=== PATIENT | male | born 1955 | race Caucasian/White ===

== ENCOUNTER → 2021-08-31 14:33 | Outpatient (BNVA) | payer MEDICARE, SELFPAY | PROVIDERS: Visit Provider Podiatrist Foot & Ankle Surgery | DX: M79.672 Pain in left foot (principal) | CPT/HCPCS: 73630 ==

== ENCOUNTER 2021-10-05 11:43 | Outpatient (CLI) | payer MEDICARE, SELFPAY ==
[2021-10-05 13:04] LABS: Blood Urea Nitrogen 14 mg/dL (8-23); Glomerular Filtration Rate 112.5 mL/min (90-130)
== END 2021-10-05 11:44 | disposition home or self-care (01) ==
LOC: RADSHAW 11:47
PROVIDERS: Visit Provider Specialist
DX: D10.5 Benign neoplasm of other parts of oropharynx (principal)
CPT/HCPCS: 82565; 84520

== ENCOUNTER 2021-11-03 08:56 | Outpatient (CLI) | payer MEDICARE, SELFPAY ==
--- NOTE | 2021-11-03 09:08 | CT_ITS ---
WS: [id number] CT NECK TECHNIQUE: Contrast-enhanced CT of the neck with coronal and sagittal reformatted images. CLINICAL INFORMATION: OTHER LESIONS OF ORAL MUCOSA COMPARISON: None. DLP: 600.[address] scans at [facility] use at least one of these dose optimization techniques: automated e xposure control; mA and/or kV adjustment per patient size (includes targeted exams where dose is matc hed to clinical indication); or iterative reconstruction. FINDINGS: Noncalcified slightly spiculated nodules right upper lobe both measuring approximately 13 mm suspicio us for neoplasm or metastatic disease. Additional fibrotic opacity right lung apex measuring 12 mm. R ecommend further evaluation with chest CT. Fibrosis in the lung apices. Partially visualized mild med iastinal lymphadenopathy measuring 10 to 11 mm. Partially visualized intracranial contents are normal. Mastoid air cells are well aerated. Paranasal sinuses are well aerated. Bilateral tonsillar calcifications. Asymmetric soft tissue thickening in the right tongue base of the palatine tonsil. Uvula displaced to the right with soft tissue thickening. Recommend direct visualiz ation. Slight effacement of the right parapharyngeal fat. Submandibular glands are normal. Parotid glands are normal. Normal epiglottis and vallecula. Normal piriform sinuses. Subglottic airway is well aerated. Chronic ununited type II dens fracture with anterior translation of the C2 body relative to the dista l fragment measuring 6 mm. Widening measuring 7 mm. No significant central canal stenosis. Mild spondylitic changes cervical spi ne. No cervical lymphadenopathy. CT/CT neck w con* [id number] IMPRESSION: 1. Soft tissue thickening involving the right tongue base extending into the p alatine tonsil and right aspect of the uvula. Uvula appears tethered to the rig ht. Tonsillar calcifications. Recommend direct visualization to exclude underly ing neoplasm. This can be further evaluated with PET/CT. 2. Normal vallecula and piriform sinuses. Normal subglottic airway. 3. Suspicious spiculated nodules in the right upper lobe measuring 13 mm likel y primary neoplasm or metastatic disease. Additional fibrotic opacity right lucas g apex measuring 12 mm. Recommend further evaluation with chest CT. 4. Partially visualized mild anterior mediastinal lymphadenopathy measuring 10 to 11 mm. 5. No cervical lymphadenopathy. 6. Normal salivary glands. 7. Chronic ununited type II dens fracture described above.
[2021-11-03 09:54] LABS: Blood Urea Nitrogen 13 mg/dL (8-23); Glomerular Filtration Rate 112.5 mL/min (90-130)
[2021-11-03] MEDS: iohexol 300 mg/mL 100 mL Btl IV (10:17)
== END 2021-11-03 08:57 | disposition home or self-care (01) ==
PROVIDERS: Visit Provider Specialist
DX: K13.79 Other lesions of oral mucosa (principal)
CPT/HCPCS: 70491; 82565; 84520

== ENCOUNTER 2021-11-10 12:43 | Outpatient (CLI) | payer MEDICARE, SELFPAY ==
--- NOTE | 2021-11-10 12:52 | XR_ITS ---
WS: [id number] Lateral views of cervical spine in the flexion, extension and neutral positions. 11/10/2021 Clinical Data: SOLITARY PULMONARY NODULE Comparison: CT neck, 11/03/2021. Findings: The ununited dens fracture is visible on the lateral images. There is osteoarthritis at C4-C6 with ac companying degenerative disc disease. No prevertebral soft tissue swelling is seen. No compression fr actures are noted. There is no limitation of motion or subluxation on flexion or extension. XR/XR cervical spine fl/ex [id number] Impression: 1. Ununited dens fracture unchanged. 2. Osteoarthritis and degenerative disc disease C4-C6. 3. Negative for limitation of motion or subluxation on flexion or extension.
--- NOTE | 2021-11-10 16:10 | ECG_ITS ---
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 Measurements Intervals Carbon Rate: 73 P: 88 WY: 142 QRS: 91 QRSD: 106 T: 67 QT: 377 QTc: 416 Interpretive Statements SINUS RHYTHM BORDERLINE RIGHT AXIS DEVIATION [QRS AXIS > 90] No previous ECG available for comparison Electronically Signed On 11-10-2021 17:57:37 LONG TERM by Neri Albright M.D. [email or web address] [facility] hospital of greenvilleAlethia BioTherapeuticswvumedicine [facility].[employer]/store/Ov/[id number]
== END 2021-11-10 12:44 | disposition home or self-care (01) ==
PROVIDERS: Visit Provider Specialist
DX: D37.09 Neoplasm of uncertain behavior of other specified sites of the oral cavity (principal); R91.1 Solitary pulmonary nodule; R94.31 Abnormal electrocardiogram [ECG] [EKG]; M47.812 Spondylosis without myelopathy or radiculopathy, cervical region; M50.321 Other cervical disc degeneration at C4-C5 level
CPT/HCPCS: 72040; 93005

== ENCOUNTER 2021-11-17 11:28 | Outpatient (CLI) | payer MEDICARE, SELFPAY ==
--- NOTE | 2021-11-17 11:41 | CT_ITS ---
WS: [id number] CT CHEST WITH AND WITHOUT INTRAVENOUS CONTRAST HISTORY: SOLITARY PULMONARY NODULE TECHNIQUE: Contiguous 5 mm axial imaging performed on the thorax. Coronal and sagittal reformats are submitted. All CT scans at [facility] use at least one of these dose optimization techniques: automated exposure control; mA and/or kV adjustment per patient size (includes targeted exams where dose is matched to clinical indication); or iterative reconstruction. CONTRAST: Omnipaque 350; 95 mL IV. DLP: 1101.88 mGy.cm COMPARISON: Neck CT 11/03/2021 Lungs and central airway: Lungs are hyperexpanded. Chronic emphysematous changes. There are multiple, bilateral pulmonary nodules highly suspicious for metastatic disease. The largest nodule is in the a nterior LEFT lower lobe measuring 15 x 15 mm. There is adjacent interstitial thickening and stranding which may be atelectasis or tumor extension. Margins are slightly irregular. Largest RIGHT upper lob e nodule corresponds to the nodule seen on the recent neck CT measuring 14 x 14 mm. There is an addit ional lobulated 10 mm nodule in the inferior segment of the RIGHT upper lobe. Additional very small n odules and interstitial thickening are noted in the periphery especially of the lower lung frias and at the RIGHT apex. Pleura: Normal. No pleural effusion. Heart and pericardium: Normal size heart with no pericardial effusion. Mediastinum and sheila: There are a few small lymph nodes in the mediastinum but these are not signific antly enlarged. Fluid in the pericardial recess is noted posterior to the aorta. The largest lymph no se measure approximately 7 mm in diameter near the AP window and in the hilar regions. Vessels: Normal size aortic and pulmonary artery. No coronary artery calcifications. Chest wall and lower neck: No soft tissue masses. Upper abdomen: Early enhancement of the liver demonstrates no suspicious metastatic lesions within th e liver. There are very few too small to characterize hypodensities which are probably cysts. This ph ase of enhancement is not sensitive for early metastatic lesions. The LEFT adrenal gland is thickened . Both limbs are thickened and nodular. RIGHT adrenal gland is normal. Low-attenuation well-circumscr ibed mass in the superior pole of the LEFT kidney measures 18 x 19 mm. Hounsfield units are slightly elevated suggesting this is not a simple cyst. Gallbladder appears slightly lobulated. Visualized parker creas is unremarkable. Osseous structures: No destructive bone lesions are identified. There is mild wedging of T7 and T11. CT/CT chest wo/w con [id number] IMPRESSION: 1. Several bilateral pulmonary nodules suspicious for metastatic disease. The largest measures 15 x 15 mm in the LEFT lower lobe. There are additional kana us nodules and interstitial thickening as above which may represent early metas tatic lesions. PET/CT imaging recommended. 2. Mild diffuse thickening of the LEFT adrenal gland. Hyperplasia versus early metastatic disease. 3. Solid mass LEFT kidney measures 18 x 19 mm. This is not a simple cyst. This could be a complex cysts or early renal cell neoplasm. This can be further francoise luated by PET/CT imaging also. 4. Several small mediastinal and hilar lymph nodes but cannot confirm signific ant adenopathy within the thorax on this examination.
[2021-11-17] MEDS: iohexol 300 mg/mL 100 mL Btl IV (12:21)
== END 2021-11-17 11:29 | disposition home or self-care (01) ==
LOC: RAD 11:30
PROVIDERS: Visit Provider Specialist
DX: R91.1 Solitary pulmonary nodule (principal); N28.89 Other specified disorders of kidney and ureter
CPT/HCPCS: 71270

== ENCOUNTER 2021-11-22 15:43 | Outpatient (CLI) | payer MEDICARE, SELFPAY | END 2021-11-22 15:44 | disposition home or self-care (01) | PROVIDERS: Visit Provider Specialist | DX: K13.79 Other lesions of oral mucosa (principal) | CPT/HCPCS: 88309; 88342 ==

== ENCOUNTER → 2021-12-22 09:32 | Outpatient (BNVA) | payer MEDICARE, SELFPAY | PROVIDERS: Visit Provider Internal Medicine Pulmonary Disease | DX: R06.02 Shortness of breath (principal); J44.9 Chronic obstructive pulmonary disease, unspecified; R91.8 Other nonspecific abnormal finding of lung field | CPT/HCPCS: 87635 ==

== ENCOUNTER 2021-12-26 05:29 | Day surgery (SDC) | payer MEDICARE, SELFPAY ==
[2021-12-25 12:43] VITALS: BMI 22.6
[2021-12-26] VITALS (10 sets, daily range): BP systolic 99–131; BP diastolic 53–80; PULSE 66–81; RESP 14–16; TEMP 36.3; O2SAT 96–99
--- NOTE | 2021-12-26 | CT_ITS ---
Guided Bronchoscopy Planning CT images; total exam DLP: 918.17 mGy-cm MTDD
[2021-12-26] MEDS: sodium chloride 0.9% 1,000 ML 30 ML IV ×2 (06:57→08:12)
[2021-12-26] MEDS: meclizine 25 mg tablet PO (06:59)
[2021-12-26] MEDS: scopolamine 1.5 Patch 1 PATCH TRANSDERMA (07:00)
--- NOTE | 2021-12-26 07:11 | W.PM.OPSUD ---
Surgery/Procedure H&P Update DATE OF PROCEDURE: December 26, 2021 DATE H&P PERFORMED: 12/13/21 CHANGES TO PREVIOUS DOCUMENTATION: none PRIMARY INDICATION FOR PROCEDURE: Patient had a CT chest 11/17/2021 Which showed? Several bilateral pulmonary nodules suspicious for metastatic disease. The largest measures 15 x 15 mm in the LEFT lower lobe. There are additional numerous nodules and interstitial thickening as above which may represent early metastatic lesions. ? Mild diffuse thickening of the LEFT adrenal gland. Hyperplasia versus early metastatic disease. Solid mass LEFT kidney measures 18 x 19 mm. This is not a simple cyst. This could be a complex cysts or early renal cell neoplasm.? Several small mediastinal and hilar lymph nodes but cannot confirm significant adenopathy within the thorax on this examination. 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 ? PET/CT 12/16/2021 reported 1.6 cm right upper lobe solid nodule with SUV 6 indicates high probability of malignancy. Uptake in left pulmonary ligament nodule is suspicious for metastatic disease. 1.0 cm anterior/lateral left lower lobe nodule has minimally FDG activity. Patient reported having dyspnea on exertion. Smokes half pack to 1 pack a day for more than 40 years. PLANNED PROCEDURE: Operation Date: 12/26/21 07:00 Proposed Procedures Bronchoscopy for airway inspection, endobronchial ultrasound-guided transbronchial biopsy of left hilar lesion and navigational bronchoscopy guided fine-needle aspiration cytology of right upper lobe nodule and control of bleeding p Veran(Not Applicable) - Jim Jones MD s Ebus(Not Applicable) - Jim Jones MD Related Problem List Diagnoses (1) COPD (chronic obstructive pulmonary disease): (2) Multiple pulmonary nodules determined by computed tomography of lung: (3) Smoker:
--- NOTE | 2021-12-26 07:17 | ANES.PREANE2 ---
Pre-Anesthetic Assessment Height/Weight: Height 1.78 m Weight 71.668 kg Preop Diagnosis: Suspected lung mets Operation Date: 12/26/21 07:00 Proposed Procedures keysha Hoffmann(Not Applicable) - Jim Jones MD s Miguel Ángel(Not Applicable) - Jim Jones MD Familial anesthetic complications: None Was Beta Jaden taken within 24 hours: N/A Was Clonidine taken within 24 hours: N/A Last intake: Intake Last Liquid Date 12/25/21 Last Liquid Time 19:00 Last Solid Date 12/25/21 Last Solid Time 18:00 Social Tobacco and No alcohol Exam alert, oriented x 3, clear to auscultation bilaterally and regular rate & rhythm Airway Submandibular: within normal limits Cervical ROM: within normal limits Mallampati: Class I Dentition: false Pulmonary Chronic Obstructive Pulmonary Disease and Shortness of Breath Pharyngeal mass Lung mass CV/HEM None reported METS > 4 Renal lesion Hepatic None reported GI None reported Metabolic None reported Musc/skel None reported Dens fx w/o subluxation on dybnamic radiographs Anesthetic Plan ASA status: 3 (66 year old daily smoker w/ lung and renal lesions suspicious for metastatic disease.) Anesthesia: Anesthesia Evaluation and General Other: We discussed risk and benefits of general anesthesia including PONV, sore throat (sometimes severe), corneal abrasion, positioning and peripheral nerve injuries, life threatening allergic reaction, post operative ICU admission requiring prolonged intubation, stroke, heart attack, , and rare incidences of recall. Patient consents to proceed with general anesthesia. Risk of > 500 ml blood loss (7ml/kg in children): No Medications/Allergies Home Medications Medication Instructions Recorded Confirmed Last Taken Type tiotropium bromide 2.5 2 puff INHALATION DAILY #4 g 12/14/21 12/26/21 12/26/21 Rx mcg/actuation mist for inhalation (Spiriva Respimat) Allergies Allergy/AdvReac Type Severity Reaction Status Date / Time erythromycin base Allergy Intermediate ADR-Nausea Verified 12/26/21 06:14 Current Medications Generic Name Dose Route Start Last Admin Trade Name Freq PRN Reason Stop Dose Admin Sodium Chloride 1,000 mls @ 30 mls/hr 12/26/21 06:45 12/26/21 06:57 Sodium Chloride 0.9% IV 12/27/21 06:44 30 mls/hr .Q24H CLEO Administration PFSH Anesthesia Social History Smoking and tobacco status: former smoker Data Anesthesia Cardiac Studies: No Data to Display
--- NOTE | 2021-12-26 08:27 | P.OP_ITS ---
Operative Report Date of procedure: December 26, 2021 Pre-op diagnosis: Preop Diagnosis Suspected lung mets Post-op diagnosis: Suspected lung malignancy Procedure done: Bronchoscopic inspection of airway, navigational bronchoscopy guided transbronchial biopsies of right upper lobe nodule, endobronchial ultrasound guided surveillance of mediastinal and hilar lymph nodes and control of bleeding Surgeon: Jim Jones MD Brief History: Mr. Red Villareal is a 66-year-old male with past medical history of chronic smoking, right posterior hard palate mass s/p resection-pathology reported benign, referred by Dr. Godinez for pulmonary nodule, possible metastatic disease. Patient reported having dyspnea on exertion. Smokes half pack to 1 pack a day for more than 40 years. Patient had a CT chest 11/17/2021 Which showed? Several bilateral pulmonary nodules suspicious for metastatic disease. The largest measures 15 x 15 mm in the LEFT lower lobe. There are additional numerous nodules and interstitial thickening as above which may represent early metastatic lesions. ? Mild diffuse thickening of the LEFT adrenal gland. Hyperplasia versus early metastatic disease. Solid mass LEFT kidney measures 18 x 19 mm. This is not a simple cyst. This could be a complex cysts or early renal cell neoplasm.? Several small mediastinal and hilar lymph nodes but cannot confirm significant adenopathy within the thorax on this examination. 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 ? PET/CT 12/16/2021 reported 1.6 cm right upper lobe solid nodule with SUV 6 indicates high probability of malignancy.? Uptake in left pulmonary ligament nodule is suspicious for metastatic disease. 1.0 cm anterior/lateral left lower lobe nodule has minimally FDG activity. Today scheduled for?Bronchoscopic inspection of airway, navigational bronchoscopy guided transbronchial biopsies of right upper lobe nodule, endobronchial ultrasound guided surveillance of mediastinal and hilar lymph nodes and control of bleeding Procedure: Name of the procedure:Bronchoscopic inspection of airway, navigational bronchoscopy guided transbronchial biopsies of right upper lobe nodule, endobronchial ultrasound guided surveillance of mediastinal and hilar lymph nodes and control of bleeding Indication:?1.6 cm highly suspicious for malignancy Anesthesia: General anesthesia. Local anesthesia: 1% lidocaine. Description of the procedure: The procedure was explained to the patient and the consent was obtained.? The patient was brought to the OR.? The patient underwent endotracheal intubation for general anesthesia.? Following induction of general anesthesia, the bronchoscope was advanced through the ET tube.? The lower trachea appeared normal.? The Main blu was sharp.? The distal trachea, the right and left mainstem bronchi are anesthetized with 1% lidocaine.? In a systematic manner bilateral bronchial tree was then examined.? The bronchoscope was then introduced into the right mainstem bronchus.? The right upper lobe, right middle lobe and right lower lobe bronchi were examined up to the third subsegmental level and no abnormalities were identified. Mucosa appeared normal with no endobronchial lesions. There were no secretions. The bronchoscope was advanced into the left mainstem bronchus.? The left upper lobe, lingula and left lower lobe bronchi were examined up to the third subsegmental level and no abnormalities were identified.? Mucosa appeared normal with no endobronchial lesions or secretions. Using navigational bronchoscopy technique, transbronchial biopsies using forceps were obtained from the right upper lobe lesion. Bronchoalveolar lavage was performed from the right upper lobe.? 60 mL of saline was instilled, fluid return was 25 mL.? The fluid return has mucus flecks and blood tinged. The endobronchial ultrasound was introduced through the ET tube but did not find good lymph node in mediastinal or hilar area to able to do TB NA. Scopes retrieved and procedure terminated. Patient tolerated procedure well-he was extubated and transferred to recovery. Samples: 1.?? The navigational bronchoscopy guided transbronchial biopsies of right upper lobe nodule sent for histopathology 2.? The bronchoalveolar lavage from right upper lobe was sent for Gram stain culture? and Complications: There were no immediate complications. Post procedure CXR: No evidence of pneumothorax Related Problem List Diagnoses (1) COPD (chronic obstructive pulmonary disease): (2) Multiple pulmonary nodules determined by computed tomography of lung: (3) Smoker: (4) Suspected malignant neoplasm: (5) Exertional shortness of breath:
--- NOTE | 2021-12-26 08:50 | XR_ITS ---
WS: [id number] Exam: XR chest 1V portable [id number] Date/Time of Exam: 12/26/2021 8:45 AM Reason For Exam: post VAREN BRONCH Compared to chest CT performed 11/17/2021. There is focal infiltrate seen in the lateral mid right lung that may represent developing pneumonia. There are also several scattered ill-defined soft tissue nodules in both lungs. The lungs are hyperi nflated which may indicate COPD. Cardiomediastinal silhouette is unremarkable. No pneumothorax or ple ural effusion. Bony structures are intact. XR/XR chest 1V portable [id number] IMPRESSION: 1. Focal pulmonary infiltrate in the lateral mid right lung suspicious for pneu monia. 2. There are several scattered ill-defined soft tissue nodules in both lungs th at may represent pulmonary metastatic disease as described on recent chest CT s can. 3. Pulmonary hyperinflation suggesting COPD.
== END 2021-12-26 09:55 | disposition home or self-care (01) ==
PROVIDERS: Visit Provider Internal Medicine Pulmonary Disease
PROC: 0BJ08ZZ Inspection of Tracheobronchial Tree, Via Natural or Artificial Opening Endoscopic (ICD-10-PCS; CPT 31622; principal; 2021-12-26 07:00)
PROC: BB4BZZZ Ultrasonography of Pleura (ICD-10-PCS; 2021-12-26 07:00)
DX: R91.8 Other nonspecific abnormal finding of lung field (principal); J44.9 Chronic obstructive pulmonary disease, unspecified; F17.210 Nicotine dependence, cigarettes, uncomplicated; R68.89 Other general symptoms and signs; R06.02 Shortness of breath
CPT/HCPCS: 31624; 31627; 31628; 71045; 77011; 80500; 87015; 87070; 87102; 87116; 87205; 87206; 87801; 88112; 88305; 88307; J0330; J1100; J2370; J2405; J3010; J3490; J7030; J8597

== ENCOUNTER → 2022-01-22 09:39 | Outpatient (BNVA) | payer MEDICARE, SELFPAY | PROVIDERS: Visit Provider Internal Medicine Pulmonary Disease | DX: R91.8 Other nonspecific abnormal finding of lung field (principal); F17.210 Nicotine dependence, cigarettes, uncomplicated; N28.9 Disorder of kidney and ureter, unspecified; J44.9 Chronic obstructive pulmonary disease, unspecified | CPT/HCPCS: 99214 ==

== ENCOUNTER 2022-04-17 09:37 | Outpatient (CLI) | payer MEDICARE, SELFPAY ==
--- NOTE | 2022-04-17 11:00 | CT_ITS ---
WS: [id number] CT CHEST, ABDOMEN AND PELVIS NONCONTRAST HISTORY: N28.9 - Disorder of kidney and ureter, unspecified TECHNIQUE: Contiguous 5 mm axial imaging performed through the chest, abdomen and pelvis without IV c ontrast, oral contrast has been provided. Coronal and sagittal reformats chest. Coronal and sagittal reformats through the abdomen and pelvis. All CT scans at [facility] use at least one of thes e dose optimization techniques: automated exposure control; mA and/or kV adjustment per patient size (includes targeted exams where dose is matched to clinical indication); or iterative reconstruction. CONTRAST: None DLP: 1190.68 mGy-cm. COMPARISON: 11/17/2021, PET/CT imaging 12/16/2021. Chest CT: 9 mm slightly irregular pulmonary nodules the RIGHT apex. Minimal increase in size since th e prior study. Solid slightly lobulated 16 x 18 mm nodule is slightly increased in size RIGHT upper l obe. 9 mm nodule RIGHT upper lobe is decreased in size since the prior study. Scattered nodules in th e superior segment LEFT lower lobe identified. May be endobronchial lesions. There is a new focal are a of groundglass attenuation at the lingula measuring 17 mm in short axis diameter. 10 mm well-circum scribed solid nodule LEFT lower lobe has decreased in size. Chronic emphysematous changes. Subcentime ter mediastinal and hilar lymph nodes. The pulmonary ligament node seen on the PET/CT imaging is not well visualized today without IV contrast. No increasing or new lymph nodes are appreciated. Heart si ze is normal. No pericardial effusion. Incidental note is made of a lipoma involving the rotator cuff of the LEFT shoulder. Abdomen CT: Heterogeneous appearance of the liver. Liver does appear enlarged. No discrete masses rosie ntified. Stable low-attenuation 8 mm nodule in the RIGHT lobe of the liver. Spleen is nonenlarged. Ga llbladder and pancreas are negative. Again noted is mild hyperplasia LEFT adrenal gland. RIGHT adrena l gland is negative. Previously described nodule from the superior pole LEFT kidney is unchanged measuring 19 m in diamete r. Not included on the prior chest CT is an additional enlarged lobulated heterogeneous mass involvin g the mid to lower medial LEFT kidney measuring 31 x 36 mm. May be causing obstruction of the calyces lower pole versus cyst within the lower pole. This mass is suspicious for neoplasm. Mild atherosclerosis aorta. No ascites or free air. No significant adenopathy identified on this unen hanced study. No GI tract obstruction. Distal colon diverticulosis. Pelvic CT: No free fluid in the pelvis. Minimally distended urinary bladder. Bladder wall is hypertro phied which is in part due to the underdistention and also prostate enlargement. No osteoblastic or o steolytic bone disease. T7 Schmorl's node. Advanced facet joint arthritis at L4-5. CT/[place] [id number] IMPRESSION: 1. Multiple bilateral pulmonary nodules noted to be PET/CT positive on 12/16/19 22. Some of these nodules have decreased in size while others have slightly inc reased in size. The largest nodule RIGHT upper lobe measures 16 x 18 mm. Very m inimally increased in size. No new nodules. 2. No mediastinal or hilar lymph nodes identified on this unenhanced study. 3. Solid mass LEFT kidney incompletely evaluated on this unenhanced study but thought to be low-grade neoplasm. This mass is in the mid to lower medial LEFT kidney. The previously described mass in the upper pole of the LEFT kidney is p robably a cyst as described on 11/17/2021. 4. Mild LEFT adrenal hyperplasia is unchanged.
[2022-04-17] MEDS: iohexol 300 mg/mL 100 mL Btl PO (11:17)
== END 2022-04-17 09:38 | disposition home or self-care (01) ==
LOC: RAD 09:39
PROVIDERS: Visit Provider Internal Medicine Pulmonary Disease
DX: N28.9 Disorder of kidney and ureter, unspecified (principal); R91.8 Other nonspecific abnormal finding of lung field; E27.8 Other specified disorders of adrenal gland
CPT/HCPCS: 71250; 74176

== ENCOUNTER → 2022-05-08 15:23 | Outpatient (BNVA) | payer MEDICARE, SELFPAY | PROVIDERS: Visit Provider Urology | DX: N28.9 Disorder of kidney and ureter, unspecified (principal) | CPT/HCPCS: 99203 ==

== ENCOUNTER 2022-05-24 07:13 | Outpatient (CLI) | payer MEDICARE, SELFPAY ==
--- NOTE | 2022-05-24 07:00 | CT_ITS ---
WS: [id number] CT ABDOMEN NON-CONTRAST PLUS CONTRAST TECHNIQUE: Noncontrast CT of the abdomen and contrast-enhanced CT of the abdomen with coronal and sag ittal reformatted images. CLINICAL INFORMATION: RENAL MASS COMPARISON: CT April 17, 2022 PET/CT to December 16, 2021 DLP: 1912.[address] scans at [facility] use at least one of these dose optimization techniques: automated e xposure control; mA and/or kV adjustment per patient size (includes targeted exams where dose is matc hed to clinical indication); or iterative reconstruction. FINDINGS: Heterogeneously enhancing LEFT renal mass measuring 3.8 x 3.1 x 4.1 cm involving the lower pole LEFT kidney medially. Diffuse heterogeneous enhancement. Findings are compatible with renal neoplasm. No s ignificant obstruction. Visualized LEFT ureter empties normally. Normal LEFT renal parenchymal enhanc ement. Adjacent LEFT lower pole parapelvic renal cyst measuring 4.4 x 2.0 x 3.8 cm. Additional smalle r LEFT renal cysts. Tiny RIGHT renal cysts. RIGHT kidney empties normally with normal renal parenchym al enhancement. LEFT adrenal thickening is unchanged. Stable 9 mm nodule LEFT lower lobe laterally. Normal liver. Nor mal portal vein and splenic vein. Normal GE junction. Normal spleen. Normal pancreatic parenchymal en hancement. A few small low-attenuation lesions in the liver likely hepatic cysts. Some are too small to characterize. Larger cyst inferior tip RIGHT hepatic lobe measuring 1.6 cm. RIGHT adrenal gland is normal. Normal caliber abdominal aorta. Celiac and SMA are patent. No periaort ic lymphadenopathy. LEFT renal vein is patent. Tiny fat-containing umbilical hernia. Scattered fluid in the partially visualized small bowel. CT/CT abdomen wo/w con [id number] IMPRESSION: 1. Heterogeneously enhancing LEFT renal mass compatible with renal neoplasm in volving the lower pole LEFT kidney medially. This is unchanged since the prior examinations 2. LEFT renal vein is patent. No lymphadenopathy. 3. Normal excretion on the delayed images bilaterally. 4. Lobulated LEFT lower pole parapelvic cyst measuring 3.8 cm. 5. Additional smaller renal cysts bilaterally. 6. Numerous low-attenuation lesions in the liver likely hepatic cysts. Some ar e too small to characterize. 1.6 cm hepatic cyst undersurface RIGHT hepatic lob e. 7. No other significant changes compared to previous examinations. 8. Stable 9 mm suspicious nodule LEFT lower lobe laterally.
[2022-05-24 07:50] LABS: Blood Urea Nitrogen 15 mg/dL (8-23); Glomerular Filtration Rate 84.2 mL/min (90-130)
== END 2022-05-24 07:14 | disposition home or self-care (01) ==
PROVIDERS: Visit Provider Urology
DX: N28.89 Other specified disorders of kidney and ureter (principal); Q61.02 Congenital multiple renal cysts; K76.9 Liver disease, unspecified; R91.1 Solitary pulmonary nodule
CPT/HCPCS: 74170; 82565; 84520; 99213; Q9967

== ENCOUNTER 2022-06-05 06:52 | Outpatient (CLI) | payer MEDICARE, SELFPAY ==
--- NOTE | 2022-06-05 13:24 | PFTS_ITS ---
Date of Study:06/05/22 Date of Dictation: MECHANICS: Forced vital capacity (FVC) is normal. Forced expiratory volume in one second (FEV1) is reduced. FEV1/FVC is reduced. FLOW VOLUME LOOP: Reduced flow at all lung volumes with scooping. LUNG VOLUMES: Not measured DIFFUSING CAPACITY FOR CARBON MONOXIDE: Moderate reduced. INTERPRETATION: The postbronchodilator spirometry is consistent with moderate airflow obstruction. There is a significant postbronchodilator response. Gas exchange (DLCO) is moderately reduced. MTDD
== END 2022-06-05 06:53 | disposition home or self-care (01) ==
PROVIDERS: Visit Provider Internal Medicine Pulmonary Disease
DX: R91.8 Other nonspecific abnormal finding of lung field (principal)
CPT/HCPCS: 94060; 94729; J7614

== ENCOUNTER → 2022-06-07 09:48 | Outpatient (BNVA) | payer MEDICARE, SELFPAY | PROVIDERS: Visit Provider Internal Medicine Pulmonary Disease | DX: R91.8 Other nonspecific abnormal finding of lung field (principal); N28.9 Disorder of kidney and ureter, unspecified; R06.02 Shortness of breath; J43.9 Emphysema, unspecified; F17.210 Nicotine dependence, cigarettes, uncomplicated; Z57.2 Occupational exposure to dust; Z77.090 Contact with and (suspected) exposure to asbestos; Z77.098 Contact with and (suspected) exposure to other hazardous, chiefly nonmedicinal, chemicals | CPT/HCPCS: 99214 ==

== ENCOUNTER 2022-09-06 16:11 | Emergency (ER) | payer MEDICARE, SELFPAY ==
[2022-09-06 16:18] VITALS: BP 137/88; PULSE 90; RESP 18; TEMP 37.1; O2SAT 91; BMI 22.2
--- NOTE | 2022-09-06 16:33 | W.ED.NAVMDI ---
HPI - Nausea/Vomiting/Diarrhea General: Chief complaint: Nausea/Vomiting/Diarrhea Stated complaint: Kidney removed 4wks ago, chills and diarhhea Time Seen by Provider: 09/06/22 16:33 History of Present Illness: Mr. Villareal is a 67-year-old gentleman with recent significant history of nephrectomy approximately 4 weeks ago presenting to the emergency department due to diarrhea. Onset of diarrhea was approximately 10 days ago and essentially is persisted since that time. He describes multiple liquidy explosive bowel movements per day. No significant associated abdominal pain or nausea vomiting. Mild associated chills. Overall course of symptoms has persisted. Denies recent antibiotic use. Reports postoperative course has been remarkably uncomplicated and he had a postoperative visit. No other specific changes in health, exacerbating, or alleviating factors identified. Pertinent past history: abdominal surgery Onset (ago): week(s) Description of diarrhea: watery Associated abdominal pain: No Location of pain: None Severity: moderate Associated symtoms: Reports other (Chills) Review of Systems General: Reports: 10 or more systems reviewed and unremarkable except in HPI and below PFSH ED PFSH: Family History Father , AT 48 Heart attack Mother , AT 83 Cancer Social History Smoking and tobacco status: former smoker Alcohol intake: never Marital status: Current occupational status: retired History of recent travel: No Physical Exam Const: COMMON NORMALS: alert GENERAL APPEARANCE: cooperative and well developed HENMT: COMMON NORMALS: normocephalic and atraumatic HEAD & SCALP: normocephalic and atraumatic Eye: COMMON NORMALS: conjunctivae normal CONJUNCTIVA: Yes conjunctivae normal SCLERA: sclerae normal Neck/C-Spine: COMMON NORMALS: supple GENERAL: Yes trachea midline Resp: COMMON NORMALS: clear to auscultation bilaterally EFFORT & INSPECTION: Yes able to speak in complete sentences AUSCULTATION: clear to auscultation bilaterally Cardio: COMMON NORMALS: regular rate and regular rhythm RATE: regular rate RHYTHM: regular rhythm GI: COMMON NORMALS: Soft to palpation PALPATION: Yes Soft to palpation and No Tenderness to palpation present (GI) OTHER: Surgical sites appear healing well Extremity: GENERAL: Yes normal exam except as noted and No edema Neuro: COMMON NORMALS: moves all extremities SENSORIUM/ORIENTATION: Yes alert and No Orientation impaired Psych: COMMON NORMALS: mental status grossly normal and Normal thought process present THOUGHT PROCESS: Normal thought process present Course Vital Signs: Vital signs: Vital Signs Temperature 98.8 F 09/06/22 16:18 Pulse Rate 107 H 09/06/22 20:52 Respiratory Rate 16 09/06/22 20:52 Blood Pressure 126/72 09/06/22 20:52 Pulse Oximetry 93 09/06/22 20:52 Oxygen Delivery Me thod 09/06/22 16:18 MDM - Nausea/Vomiting/Diarrhea Medical Decision Making 67-year-old male presenting with GI symptoms and chills 4 weeks post nephrectomy. No evidence of peritonitis on exam. Patient is nontoxic. EKG with sinus rhythm, short ND interval, no STEMI. Laboratory studies notable for hemoconcentration and leukocytosis. Electrolytes within normal limits. Hematuria noted. CT abdomen pelvis warranted given recent surgery and history/exam. CT shows enterocolitis. Upon reassessment after treatment patient feels improved. Most likely cause of patient symptoms is enterocolitis. Given persistence of symptoms and recent history this will be treated with antibiotics. The results of ED evaluation were discussed with the patient including prescriptions and/or symptomatic cares (if applicable) including appropriate and responsible use, followup plan, and return precautions. The patient verbalized understanding and felt safe for discharge. Medical Records I reviewed the patient's medical records. Lab Data I reviewed the patient's lab results. : 09/06/22 17:00 09/06/22 17:00 Radiology Impressions Abdomen/Pelvis CT 09/06/22 18:04 IMPRESSION: 1. Prominent fluid throughout the small bowel and colon without dilation suggestive of an enterocolitis in the appropriate clinical setting. 2. Bibasilar atelectasis versus infiltrate. 3. Left kidney is absent. Laboratory Results WBC 16.6 10^3/uL (4.0-10.0) H 09/06/22 17:00 RBC 5.76 10^6/uL (4.1-5.3) H 09/06/22 17:00 Hgb 17.2 g/dL (11.7-16.6) H 09/06/22 17:00 Hct 51.8 % (42.0-52.0) 09/06/22 17:00 MCV 89.9 fl (80-94) 09/06/22 17:00 MCH 29.9 pg (28.0-34.0) 09/06/22 17:00 MCHC 33.2 g/dL (30.0-36.0) 09/06/22 17:00 RDW 13.4 % (12.1-15.1) 09/06/22 17:00 Plt Count 222 10^3/cmm (130-400) 09/06/22 17:00 MPV 10.3 fL (7.4-10.4) 09/06/22 17:00 Neut % (Auto) 81.5 % 09/06/22 17:00 Lymph % (Auto) 10.4 % 09/06/22 17:00 Greene % (Auto) 5.8 % 09/06/22 17:00 Eos % (Auto) 0.9 % 09/06/22 17:00 Baso % (Auto) 0.7 % 09/06/22 17:00 Neut # (Auto) 13.52 10^3/uL (1.8-7.7) H 09/06/22 17:00 Lymph # (Auto) 1.7 10^3/uL (0.8-4.8) 09/06/22 17:00 Greene # (Auto) 1.0 10^3/uL (0.2-0.9) H 09/06/22 17:00 Eos # (Auto) 0.2 10^3/uL (0.0-0.8) 09/06/22 17:00 Baso # (Auto) 0.1 10^3/uL (0.0-0.1) 09/06/22 17:00 Nucleated RBC % (auto) 0 % 09/06/22 17:00 Nucleated RBCs # 0.0 /100WBC 09/06/22 17:00 Sodium 136 mmol/L (136-145) 09/06/22 17:00 Potassium 4.1 mmol/L (3.5-5.1) 09/06/22 17:00 Chloride 99 mmol/L (98-107) 09/06/22 17:00 Carbon Dioxide 26 mmol/L (22-29) 09/06/22 17:00 Anion Gap 15.1 (5-19) 09/06/22 17:00 BUN 18 mg/dL (8-23) 09/06/22 17:00 Creatinine 1.1 mg/dL (0.7-1.2) 09/06/22 17:00 GFR Calculation 66.6 mL/min (90-130) L 09/06/22 17:00 Glucose 96 mg/dL (65-115) 09/06/22 17:00 Calculated Osmolality 284 mOsm/kg (285-295) L 09/06/22 17:00 Lactic Acid 2.0 mmol/L (0.5-2.2) 09/06/22 17:00 Calcium 9.6 mg/dL (8.5-10.5) 09/06/22 17:00 Magnesium 2.1 mg/dL (1.7-2.3) 09/06/22 17:00 Total Bilirubin 0.8 mg/dL (0.15-1.2) 09/06/22 17:00 AST 15 U/L (0-40) 09/06/22 17:00 ALT 14 U/L (0-41) 09/06/22 17:00 Alkaline Phosphatase 111 U/L (40-130) 09/06/22 17:00 Total Protein 7.4 g/dL (6.6-8.7) 09/06/22 17:00 Albumin 4.6 g/dL (3.5-5.2) 09/06/22 17:00 Globulin 2.8 g/dL (1.3-4.6) 09/06/22 17:00 Urine Color Dark yellow (Yellow) 09/06/22 20:10 Urine Appearance Clear (CLEAR) 09/06/22 20:10 Urine pH 5 (5-7) 09/06/22 20:10 Ur Specific [place] 1.025 (1.005-1.030) 09/06/22 20:10 Urine Protein Neg (Negative) 09/06/22 20:10 Urine Glucose (UA) Norm (Normal) 09/06/22 20:10 Urine Ketones 1+ (Negative) H 09/06/22 20:10 Urine Blood 3+ (Negative) H 09/06/22 20:10 Urine Nitrate Negative (Negative) 09/06/22 20:10 Urine Bilirubin Neg (Negative) 09/06/22 20:10 Urine Urobilinogen Norm mg/dL (Negative) 09/06/22 20:10 Ur Leukocyte Esterase Negative (Negative) 09/06/22 20:10 Urine RBC Too numerous to cnt /hpf (0-2) H 09/06/22 20:10 Urine WBC None /hpf (0-5) 09/06/22 20:10 Ur Squamous Epith Cells None /hpf (0-5) 09/06/22 20:10 Amorphous Sediment 2+ /hpf 09/06/22 20:10 Urine Bacteria None /hpf (NONE) 09/06/22 20:10 Hyaline Casts 0-4 /lpf H 09/06/22 20:10 Fine Granular Casts 0-4 /lpf H 09/06/22 20:10 Urine Mucus 1+ /hpf 09/06/22 20:10 Discharge Plan Discharge Patient Disposition: Home Clinical Impression: Enterocolitis Condition: Stable Prescriptions: New ondansetron 4 mg tablet,disintegrating 4 mg PO Q8H PRN (Reason: nausea and vomiting) Qty: 15 0RF ciprofloxacin HCl 500 mg tablet 500 mg PO BID Qty: 10 0RF No Action albuterol sulfate 90 mcg/actuation HFA aerosol inhaler 2 puff inhalation Q6H PRN (Reason: shortness of breath or wheezing) Qty: 8.5 3RF Pepto-Bismol 262 mg Tablet 2 tab PO Q1H PRN (Reason: Diarrhea) Rx Instructions: do not exceed 16 tabs per 24 hrs Discharge Orders: Discharge ED (Routine); Ordered 09/06/22 Ordered By: Víctor Fisher Discharge Diet: Usual diet Discharge Activity: Increase activity as tolerated Patient Instructions: Colitis (ED), Enteritis (ED) Activity Restrictions/Additional Instructions: Thank you for visiting the emergency department. You were seen evaluated for diarrhea and chills. The most likely cause of your symptoms is enterocolitis. Given duration of symptoms this will be treated with antibiotics. I would expect improvement in the next few days. Please follow-up with your primary care provider. Return to the emergency department for worsening symptoms or anything else that you are concerned about a feel needs emergency department evaluation. 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
--- NOTE | 2022-09-06 16:34 | ECG_ITS ---
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 Measurements Intervals [place] Rate: 98 P: 89 WI: 112 QRS: 97 QRSD: 102 T: 74 QT: 335 QTc: 428 Interpretive Statements SINUS RHYTHM WITH SHORT WI INTERVAL BORDERLINE RIGHT AXIS DEVIATION [QRS AXIS > 90] Compared to ECG 11/10/2021 13:13:46 Short WI interval now present Electronically Signed On 09-07-2022 11:55:16 CDT by Katerine Donohue M.D. [id number]
[2022-09-06 17:28] LABS: Basophils # 0.1 10^3/uL (0.0-0.1); Basophils % 0.7 %; Eosinophils # 0.2 10^3/uL (0.0-0.8); Eosinophils % 0.9 %; Hematocrit 51.8 % (42.0-52.0); Hemoglobin 17.2 g/dL (11.7-16.6); Lymphocytes # 1.7 10^3/uL (0.8-4.8); Lymphocytes % 10.4 %; Mean Corpuscular HGB Conc 33.2 g/dL (30.0-36.0); Mean Corpuscular Hemoglobin 29.9 pg (28.0-34.0); Mean Corpuscular Volume 89.9 fl (80-94); Mean Platelet Volume 10.3 fL (7.4-10.4); Monocytes % 5.8 %; Neutrophils # 13.52 10^3/uL (1.8-7.7); Neutrophils % 81.5 %; Nucleated Red Blood Cells % 0 %; Platelet Count 222 10^3/cmm (130-400); Red Blood Count 5.76 10^6/uL (4.1-5.3); Red Cell Distribution Width 13.4 % (12.1-15.1); White Blood Count 16.6 10^3/uL (4.0-10.0)
[2022-09-06 17:44] LABS: Alanine Aminotransferase 14 U/L (0-41); Albumin Level 4.6 g/dL (3.5-5.2); Alkaline Phosphatase 111 U/L (40-130); Anion Gap 15.1 (5-19); Aspartate Amino Transferase 15 U/L (0-40); Blood Urea Nitrogen 18 mg/dL (8-23); Calcium 9.6 mg/dL (8.5-10.5); Carbon Dioxide 26 mmol/L (22-29); Chloride 99 mmol/L (98-107); Globulin 2.8 g/dL (1.3-4.6); Glomerular Filtration Rate 66.6 mL/min (90-130); Glucose 96 mg/dL (65-115); Magnesium 2.1 mg/dL (1.7-2.3); Osmolality Calculated 284 mOsm/kg (285-295); Potassium 4.1 mmol/L (3.5-5.1); Sodium 136 mmol/L (136-145); Total Bilirubin 0.8 mg/dL (0.15-1.2); Total Protein 7.4 g/dL (6.6-8.7)
[2022-09-06] MEDS: sodium chloride 0.9% 1,000 ML 999 ML IV (17:51)
[2022-09-06] MEDS: ondansetron 2 mg/ML SDV 2 mL 4 MG IVP (17:51)
--- NOTE | 2022-09-06 18:04 | CTR_ITS ---
PROCEDURE INFORMATION: Exam: CT Abdomen And Pelvis Without Contrast Exam date and time: 09/06/2022 7:31 PM Age: 67 years old Clinical indication: Abdominal pain; Generalized; Prior surgery; Surgery date: 1-6 months; Surgery type: Left nephrectomy 4 weeks ago; Additional info: Diarrhea, chills, HX 4 weeks ago nephrectomy TECHNIQUE: Imaging protocol: Computed tomography of the abdomen and pelvis without contrast. Radiation optimization: All CT scans at this facility use at least one of these dose optimization techniques: automated exposure control; mA and/or kV adjustment per patient size (includes targeted exams where dose is matched to clinical indication); or iterative reconstruction. COMPARISON: CT abdomen wo/w con [id number] 05/24/2022 7:52 AM RADIATION DOSE METRICS: Total DLP (mGy-cm): 471.94 FINDINGS: Lungs: Bibasilar atelectasis versus infiltrate. Liver: Normal. No mass. Gallbladder and bile ducts: Normal. No calcified stones. No ductal dilation. Pancreas: Normal. No ductal dilation. Spleen: Normal. No splenomegaly. Adrenal glands: Normal. No mass. Kidneys and ureters: Left kidney is absent. Stomach and bowel: Prominent fluid throughout the small bowel and colon without dilation suggestive of an enterocolitis in the appropriate clinical setting. Appendix: No evidence of appendicitis. Intraperitoneal space: Unremarkable. No free air. No significant fluid collection. Vasculature: Unremarkable. No abdominal aortic aneurysm. Lymph nodes: Unremarkable. No enlarged lymph nodes. Urinary bladder: Unremarkable as visualized. Reproductive: Unremarkable as visualized. Bones/joints: Unremarkable. No acute fracture. Soft tissues: Unremarkable. CT/CT abdomen pelvis con [id number] IMPRESSION: 1. Prominent fluid throughout the small bowel and colon without dilation suggestive of an enterocolitis in the appropriate clinical setting. 2. Bibasilar atelectasis versus infiltrate. 3. Left kidney is absent.
[2022-09-06] MEDS: ciprofloxacin 500 mg Tablet PO (20:40)
[2022-09-06 20:52] VITALS: BP 126/72; PULSE 107; RESP 16; O2SAT 93
[2022-09-06 20:59] LABS: Add Urine Microscopic? YES; Bilirubin Urine Neg (Negative); Blood Urine 3+ (Negative); Glucose Urine UA Norm (Normal); Ketones Urine 1+ (Negative); Leukocyte Esterase Urine Negative (Negative); Nitrate Urine Negative (Negative); Protein Urine Neg (Negative); Specific Gravity, Urine 1.025 (1.005-1.030); Urine Appearance Clear (CLEAR); Urine Color Dark Yellow (Yellow); Urobilinogen Urine Norm (Negative); pH Urine 5 (5-7)
[2022-09-06 21:00] LABS: Add Urine Culture? No; Amorphous Sediment Urine 2+ /hpf; Fine Granular Casts Urine 0-4 /lpf; Hyaline Casts Urine 0-4 /lpf; Mucus Urine 1+ /hpf; RBC Urine TOO NUMEROUS TO CNT /hpf (0-2)
== END 2022-09-06 20:45 | disposition home or self-care (01) ==
PROVIDERS: Emergency Provider Emergency Medicine
DX: K52.9 Noninfective gastroenteritis and colitis, unspecified (principal); Z87.891 Personal history of nicotine dependence
CPT/HCPCS: 36415; 74176; 80053; 81001; 83605; 83735; 85025; 87040; 93005; 96361; 96374; 99285; J2405; J7030

== ENCOUNTER 2022-09-26 06:08 | Outpatient (CLI) | payer MEDICARE, SELFPAY ==
--- NOTE | 2022-09-26 06:30 | CT_ITS ---
WS: [id number] CT CHEST WITHOUT INTRAVENOUS CONTRAST HISTORY: f/u lung nodule TECHNIQUE: Contiguous 5 mm axial imaging performed on the thorax. Coronal and sagittal reformats are submitted. All CT scans at [facility] use at least one of these dose optimization techniques: automated exposure control; mA and/or kV adjustment per patient size (includes targeted exams where dose is matched to clinical indication); or iterative reconstruction. CONTRAST: None DLP: 638.81 mGy.cm COMPARISON: PET CT 12/16/2021, prior chest CT 04/17/2022 and 11/17/2021 Lungs and central airway: Pulmonary hyperexpansion. Changes of chronic emphysema. Patient has known m etastatic pulmonary nodules. Nodules were PET/CT positive on 12/16/2021. The largest nodule is slightl y spiculated in the RIGHT upper lobe measuring 2.1 x 2.2 cm. Compared to a prior measurement of 1.6 x 1.8 cm. There are additional scattered nodules are stable. Spiculated nodule at the RIGHT apex measu res approximately 0.9 cm and is unchanged. There is a cluster of nodules in the subsolid consolidatio n in the posterior LEFT lower lobe. This cluster measures 4.0 x 1.9 cm and has increased in size. The re is a new ground grass opacifications in the posterior RIGHT lower lobe with adjacent tree-in-bud a irspace disease. The additional nodules have not changed significantly in size. No endobronchial lesi ons. Pleura: Normal. No pleural effusion. Heart and pericardium: Normal size heart with no pericardial effusion. Mediastinum and sheila: No adenopathy on this unenhanced exam. There are small lymph nodes less than a centimeter in diameter. Vessels: Normal size aortic and pulmonary artery. No coronary artery calcifications. Chest wall and lower neck: No soft tissue masses. Upper abdomen: Prior LEFT nephrectomy. Mild thickening LEFT adrenal gland with adenoma unchanged. Sma ll hiatal hernia. Osseous structures: No destructive bone lesions are identified. CT/CT chest wo con [id number] IMPRESSION: 1. Largest pulmonary nodule in the RIGHT upper lobe has slightly increased in size now measuring 2.1 x 2.2 cm. Majority of the previously described pulmonary nodules remain the same or slightly increased in size. 2. Slight increase in size of the subsolid nodular opacification LEFT lower lo be. 3. New groundglass attenuation with adjacent tree-in-bud airspace disease RIGH T lower lobe. Pneumonitis versus new metastatic focus. 4. Prior LEFT nephrectomy. 5. Chronic emphysema.
== END 2022-09-26 06:09 | disposition home or self-care (01) ==
PROVIDERS: PCP Family Medicine; Visit Provider Family Medicine
DX: R91.1 Solitary pulmonary nodule (principal); J43.9 Emphysema, unspecified; Z90.5 Acquired absence of kidney
CPT/HCPCS: 71250

== ENCOUNTER → 2022-10-11 14:28 | Outpatient (BNVA) | payer MEDICARE, SELFPAY | PROVIDERS: PCP Family Medicine; Visit Provider Family Medicine | DX: L98.9 Disorder of the skin and subcutaneous tissue, unspecified (principal) | CPT/HCPCS: 88304 ==

== ENCOUNTER 2022-11-05 09:45 | Outpatient (CLI) | payer MEDICARE, SELFPAY ==
--- NOTE | 2022-11-05 10:15 | CT_ITS ---
WS: [id number] CT HEAD NONCONTRAST HISTORY: Headaches and nausea while lying flat TECHNIQUE: Contiguous axial imaging performed through the brain in 2.5 mm imaging. Bone and soft tiss ue windows. Sagittal and coronal reformats reviewed. All CT scans at [facility] use at least one of these dose optimization techniques: automated exposure control; mA and/or kV adjustment per pa tient size (includes targeted exams where dose is matched to clinical indication); or iterative recon struction. DLP: 1103.96 mGy.cm COMPARISON: None available. No acute intracranial hemorrhage, midline shift or mass effect. Very minimal atrophy and small vessel ischemic disease. No prior infarct. No mass effect or edema. Ventricles: Normal size with no hydrocephalus. No inferior displacement of the cerebellar tonsils. Paranasal sinuses: As visualized are clear. Mastoid air cells: Well pneumatized. Calvarium and scalp: Skull is intact with no soft tissue edema or swelling. Very slightly bulbous appearance to the supraclinoid RIGHT ICA at the junction with the M1 segment. CT/CT head wo con* [id number] IMPRESSION: 1. No acute intracranial hemorrhage or edema. 2. Mild atrophy and small vessel ischemic disease. 3. Consider evaluation of the [place] by CT angiogram. There is a rebeka y slightly bulbous appearance of the supraclinoid RIGHT ICA. Small aneurysm prince uld be excluded.
--- NOTE | 2022-11-05 10:45 | CT_ITS ---
WS: [id number] CT LUMBAR SPINE, noncontrast. HISTORY: Left leg weakness and paresthesias TECHNIQUE: Contiguous 2.5 mm axial imaging are performed. Sagittal and coronal reformats are submitte d and reviewed. All CT scans at [facility] use at least one of these dose optimization techni ques: automated exposure control; mA and/or kV adjustment per patient size (includes targeted exams w here dose is matched to clinical indication); or iterative reconstruction. IV contrast: None DLP: 1176.83 mGy.cm COMPARISON: No similar studies. Normal lumbar alignment with no loss of disc space height or vertebral body height. L1-2: Mild facet arthritis. No significant stenosis. L2-3: Mild facet joint arthritis and annular disc bulging. Shallow LEFT foraminal disc protrusion. L3-4: Annular osteophytic ridging and disc bulging with moderate facet joint arthritis encroaching in to the thecal sac. Osteophytes extend into the subarticular recesses. Mild central with moderate bila teral subarticular recess and RIGHT foraminal stenosis. Mild to moderate LEFT LEFT foraminal stenosis . L4-5: Diffuse annular disc bulging with marked facet joint arthritis and ligamentum flavum hypertroph y. Osteophytes from the facets encroach into the thecal sac and subarticular recesses. Mild central a nd RIGHT foraminal stenosis. Moderate bilateral subarticular recess stenosis and LEFT foraminal steno sis. L5-S1: Mild osteophytic ridging. Mild to moderate facet joint arthritis. Mild bilateral foraminal makayla nosis. Prior LEFT nephrectomy. CT/CT lumbar spine wo con* [id number] IMPRESSION: 1. Facet joint arthritis most significant at L3-4 and L4-5. 2. Mild central with moderate bilateral subarticular recess and RIGHT foramina l stenosis at L3-4 with osteophytes encroaching into the subarticular recesses. Mild to moderate LEFT foraminal stenosis at L3-4. 3. Moderate bilateral subarticular recess and LEFT foraminal stenosis at L4-5 with mild central and RIGHT foraminal stenosis. 4. Shallow LEFT foraminal disc protrusion at L2-3. 5. Mild bilateral facet joint arthritis and foraminal stenosis at L5-S1. 6. Prior LEFT nephrectomy.
== END 2022-11-05 09:46 | disposition home or self-care (01) ==
LOC: RAD 09:46
PROVIDERS: PCP Family Medicine; Visit Provider Family Medicine
DX: R51.9 Headache, unspecified (principal); R11.0 Nausea; R53.1 Weakness; R20.2 Paresthesia of skin; M47.816 Spondylosis without myelopathy or radiculopathy, lumbar region; M48.061 Spinal stenosis, lumbar region without neurogenic claudication; M51.26 Other intervertebral disc displacement, lumbar region; M48.07 Spinal stenosis, lumbosacral region; Z90.5 Acquired absence of kidney; G31.9 Degenerative disease of nervous system, unspecified; I67.82 Cerebral ischemia
CPT/HCPCS: 70450; 72131

== ENCOUNTER 2022-11-10 10:35 | Outpatient (CLI) | payer MEDICARE, SELFPAY ==
--- NOTE | 2022-11-10 09:16 | PETR_ITS ---
PROCEDURE INFORMATION: Exam: PET/CT Skull Base to Mid-thigh Exam date and time: 11/10/2022 11:30 AM Age: 67 years old Clinical indication: Abnormal findings; Abnormal CT 09/26/22; Prior surgery; Patient HX: HX of renal cancer, bx done and negative for cancer; Additional info: Multiple new nodules, known nodules increasing in size, 09/26/22 CT chest LABS AND CLINICAL REPORTS: Glucose: 76 mg/dl Treatment strategy for malignancy (PET staging): Restaging (PS) TECHNIQUE: Imaging protocol: Following at least four-hour fasting and following the injection of F-18-FDG, low dose CT images were obtained. Then, PET images were obtained. Attenuation corrected images were constructed using the CT scan. Fused images of PET and CT were reviewed. The standardized uptake values (SUV) reported below are maximum values within a region of interest, expressed in gm/ml. Exam includes orbital meatal line to mid-thigh. Radiopharmaceutical: 1278 mCi F-18 FDG (Fluorodeoxyglucose), IV. Time of imaging post radiopharmaceutical administration: 1 hour COMPARISON: PT PET Scan 12/16/2021 12:08 PM FINDINGS: Brain: Visualized brain has normal physiologic uptake. Salivary glands: Redemonstrated hypermetabolic left parotid nodule with SUV max 5.83. This measures approximately 7 mm on image 21. Pharynx: No abnormal uptake. Larynx: No abnormal uptake. Lungs, pleura and trachea: Minimal FDG activity is seen associated with the spiculated area of scarring at the right lung apex with SUV max 1.43. The dominant right upper lobe pulmonary nodule is hypermetabolic with SUV max 8.02. This measures 2.7 x 2.2 cm, similar to 09/26/2022 but increased in size from 12/16/2021. Cluster of tree-in-bud nodularity in the left lower lobe demonstrates mild FDG uptake with SUV max 2.76. The size of the nodules in this cluster appears similar to 09/26/2022 but increased in size from 12/16/2021. Similar 9 mm left lower lobe pulmonary nodule without FDG uptake above background. Heart: Normal physiologic uptake. Mediastinal space: No abnormal uptake. Liver: Small low-density liver lesions without increased FDG uptake. Gallbladder and bile ducts: No abnormal uptake. Pancreas: No abnormal uptake. Spleen: No abnormal uptake. Adrenal glands: No abnormal uptake. Kidneys and ureters: The left kidney is absent. Stomach and bowel: Focal FDG uptake in the region of the rectum with SUV max 8.17. There is an additional site of focal FDG uptake more superiorly within the rectum with SUV max 7.07. Vasculature: No abnormal uptake. Lymph nodes: No abnormal uptake. No lymphadenopathy in the head, neck, chest, abdomen, pelvis, and extremities. Bones/joints: No abnormal uptake in the visualized axial and appendicular skeleton. Soft tissues: Subcutaneous lipoma adjacent to the left shoulder. [facility] SUB[facility] [id number] IMPRESSION: 1. Hypermetabolic right upper lobe pulmonary nodule, which has increased in size since 12/16/2021, is highly concerning for primary bronchogenic carcinoma. 2. Cluster of tree-in-bud nodularity in the left lower lobe demonstrates mild FDG uptake and may be infectious or inflammatory, though neoplasm is not entirely excluded. 3. Redemonstrated hypermetabolic subcentimeter left parotid nodule, which could reflect a neoplasm. 4. Two focal areas of FDG uptake in the rectum could be inflammatory, though correlation with colonoscopy is recommended to exclude an underlying lesion.
== END 2022-11-10 10:36 | disposition home or self-care (01) ==
LOC: RAD 11-12 06:24
PROVIDERS: PCP Family Medicine; Visit Provider Internal Medicine Pulmonary Disease
DX: C18.6 Malignant neoplasm of descending colon (principal); R91.1 Solitary pulmonary nodule
CPT/HCPCS: 78815; A9552

== ENCOUNTER → 2022-11-14 08:01 | Outpatient (BNVA) | payer MEDICARE, SELFPAY | PROVIDERS: PCP Family Medicine; Visit Provider Dermatology | DX: D48.9 Neoplasm of uncertain behavior, unspecified (principal) | CPT/HCPCS: 88305 ==

== ENCOUNTER → 2022-11-19 13:28 | Outpatient (BNVA) | payer MEDICARE, SELFPAY | PROVIDERS: PCP Family Medicine; Visit Provider Internal Medicine Pulmonary Disease | DX: R91.8 Other nonspecific abnormal finding of lung field (principal); J44.9 Chronic obstructive pulmonary disease, unspecified; D03.59 Melanoma in situ of other part of trunk; C64.9 Malignant neoplasm of unspecified kidney, except renal pelvis; Z87.891 Personal history of nicotine dependence; Z77.090 Contact with and (suspected) exposure to asbestos; Z77.098 Contact with and (suspected) exposure to other hazardous, chiefly nonmedicinal, chemicals | CPT/HCPCS: 99214 ==

== ENCOUNTER 2022-11-23 08:21 | Outpatient (CLI) | payer MEDICARE, SELFPAY ==
[2022-11-23 08:53] LABS: Basophils # 0.1 10^3/uL (0.0-0.1); Basophils % 1.8 %; Eosinophils # 0.3 10^3/uL (0.0-0.8); Eosinophils % 3.5 %; Hematocrit 49.5 % (42.0-52.0); Hemoglobin 16.3 g/dL (11.7-16.6); Lymphocytes # 2.3 10^3/uL (0.8-4.8); Lymphocytes % 29.8 %; Mean Corpuscular HGB Conc 32.9 g/dL (30.0-36.0); Mean Corpuscular Hemoglobin 29.9 pg (28.0-34.0); Mean Corpuscular Volume 90.8 fl (80-94); Mean Platelet Volume 9.7 fL (7.4-10.4); Monocytes # 0.5 10^3/uL (0.2-0.9); Monocytes % 6.4 %; Neutrophils # 4.41 10^3/uL (1.8-7.7); Nucleated Red Blood Cells % 0 %; Platelet Count 246 10^3/cmm (130-400); Red Blood Count 5.45 10^6/uL (4.1-5.3); Red Cell Distribution Width 13.7 % (12.1-15.1); White Blood Count 7.6 10^3/uL (4.0-10.0)
--- NOTE | 2022-11-23 08:59 | XR_ITS ---
WS: [id number] XR chest 2V insp/exp [id number] REASON FOR EXAM: RENAL CELL CARCINOMA FINDINGS: Possibly this examination was mis ordered as inspiration expiration chest when a standard upper (2 vi ew) PA and lateral chest was intended. Dominant right lung mass has increased from maximum diameter on the CT scan of 09/26/2022 of 20 mm to a maximum diameter of 30 mm. There is an ill-defined density in the lower midlung field which does not appear to have correspondin g abnormality on the previous CT scan. Lucencies and coarse reticular changes compatible with central lobar emphysema. XR/XR chest 2V insp/exp [id number] IMPRESSION: Enlargement of the previously demonstrated right lung mass. Presumed no density in the right lower lung. Atypical form no metastasis. If fu rther evaluation is needed CT scan of the chest would be most helpful.
[2022-11-23 09:14] LABS: Alanine Aminotransferase 17 U/L (0-41); Albumin Level 4.2 g/dL (3.5-5.2); Alkaline Phosphatase 88 U/L (40-130); Anion Gap 11.7 (5-19); Aspartate Amino Transferase 17 U/L (0-40); Blood Urea Nitrogen 26 mg/dL (8-23); Calcium 9.5 mg/dL (8.5-10.5); Carbon Dioxide 30 mmol/L (22-29); Chloride 104 mmol/L (98-107); Globulin 2.7 g/dL (1.3-4.6); Glomerular Filtration Rate 60.2 mL/min (90-130); Glucose 113 mg/dL (65-115); Osmolality Calculated 298 mOsm/kg (285-295); Potassium 4.7 mmol/L (3.5-5.1); Sodium 141 mmol/L (136-145); Total Bilirubin 0.5 mg/dL (0.15-1.2); Total Protein 6.9 g/dL (6.6-8.7)
== END 2022-11-23 08:22 | disposition home or self-care (01) ==
PROVIDERS: PCP Family Medicine; Visit Provider Urology
DX: C64.9 Malignant neoplasm of unspecified kidney, except renal pelvis (principal)
CPT/HCPCS: 36415; 71046; 80053; 85025; 99213

== ENCOUNTER 2022-11-30 12:11 | Outpatient (CLI) | payer MEDICARE, SELFPAY ==
--- NOTE | 2022-11-30 | CT_ITS ---
Guided Bronchoscopy Planning CT images; total exam DLP: 234.61 mGy-cm MTDD
== END 2022-11-30 12:12 | disposition home or self-care (01) ==
PROVIDERS: PCP Family Medicine; Visit Provider Internal Medicine Pulmonary Disease
DX: R91.1 Solitary pulmonary nodule (principal)
CPT/HCPCS: 71250

== ENCOUNTER 2022-12-10 05:41 | Day surgery (SDC) | payer MEDICARE, SELFPAY ==
[2022-12-06 12:26] VITALS: BMI 23.6
[2022-12-10] VITALS (8 sets, daily range): BP systolic 121–136; BP diastolic 69–90; PULSE 73–77; RESP 18; TEMP 36.3–37; O2SAT 95–100
[2022-12-10] MEDS: sodium chloride 0.9% 1,000 ML 30 ML IV (06:16)
--- NOTE | 2022-12-10 06:40 | ANES.PREANE2 ---
Pre-Anesthetic Assessment Height/Weight: Height 1.8 m Weight 76.657 kg Temp Pulse Resp BP Pulse Ox O2 Del Method 98.6 F 73 18 135/90 95 12/10/22 06:03 12/10/22 06:03 12/10/22 06:03 12/10/22 06:03 12/10/22 06:03 12/10/22 06:03 Preop Diagnosis: Suspected lung mets Operation Date: 12/10/22 07:10 Proposed Procedures p ION Robotic Bronchoscopy 34073, 42465, 98402, 16019, 16148, 53852, 96608, 99032, 75272, 42818,R91.8(Not Applicable) - Jim Goodwin DatarMD Familial anesthetic complications: None Was Beta Jaden taken within 24 hours: N/A Was Clonidine taken within 24 hours: N/A Last intake: Intake Last Liquid Date 12/09/22 Last Liquid Time 18:00 Last Solid Date 12/09/22 Last Solid Time 18:00 Social Tobacco and No alcohol Exam alert, oriented x 3, clear to auscultation bilaterally and regular rate & rhythm Airway Mallampati: Class I Dentition: false Comments: Comments: hx dens fracture and pharyngeal mass ressection - previous anesthesia with glidescope 4 and easy airway with normal anatomy Pulmonary Chronic Obstructive Pulmonary Disease lung cnodules nephrectomy for RCC Anesthetic Plan ASA status: 3 Anesthesia: General Risk of > 500 ml blood loss (7ml/kg in children): No Medications/Allergies Home Medications Medication Instructions Recorded Confirmed Last Taken Type albuterol sulfate 90 mcg/actuation 2 puff inhalation Q6H PRN 06/07/22 12/07/22 12/10/21 Rx aerosol inhaler shortness of breath or wheezing #8.5 grams Allergies Allergy/AdvReac Type Severity Reaction Status Date / Time erythromycin base Allergy Intermediate ADR-Nausea Verified 12/10/22 06:01 Current Medications Generic Name Dose Route Start Last Admin Trade Name Freq PRN Reason Stop Dose Admin Sodium Chloride 1,000 mls @ 30 mls/hr 12/10/22 06:00 12/10/22 06:16 Sodium Chloride 0.9% IV 12/11/22 05:59 30 mls/hr .Q24H CLEO Administration PFSH Anesthesia Medical History History of malignant melanoma Renal cell carcinoma removed 2021 Family History Father , AT 48 Heart attack Mother , AT 83 Cancer Social History Smoking and tobacco status: former smoker Alcohol intake: never Marital status: Current occupational status: retired History of recent travel: No Data Anesthesia Cardiac Studies: No Data to Display
--- NOTE | 2022-12-10 06:55 | W.PM.OPSUD ---
Surgery/Procedure H&P Update DATE OF PROCEDURE: December 10, 2022 DATE H&P PERFORMED: 11/19/22 CHANGES TO PREVIOUS DOCUMENTATION: None PREOP DIAGNOSIS: Suspected lung mets PRIMARY INDICATION FOR PROCEDURE: PET/CT 11/10/2022 showed Hypermetabolic right upper lobe pulmonary nodule, which has increased in size since 12/16/2021, is highly concerning for primary bronchogenic? carcinoma PLANNED PROCEDURE: Operation Date: 12/10/22 07:10 Proposed Procedures p ION Robotic Bronchoscopy 97931, 66962, 54452, 55064, 28785, 23914, 21383, 23272, 15786, 10895,R91.8(Not Applicable) - Jim Goodwin DatarMD
--- NOTE | 2022-12-10 07:11 | SC_ITS ---
WS: [id number] C-ARM RADIOGRAPHS CHEST; 2 IMAGES HISTORY: Intraoperative imaging during procedure performed by Dr. Jones. COMPARISON: None available. Intraoperative imaging during lung biopsy. SC/C-arm FL for Bronchoscopy IMPRESSION: Intraoperative imaging during lung biopsy.
[2022-12-10] MEDS: lidocaine 1% INJ 10 mL (per mL) 20 ML XX (08:15)
--- NOTE | 2022-12-10 08:37 | XRR_ITS ---
PROCEDURE INFORMATION: Exam: XR Chest Exam date and time: 12/10/2022 9:39 AM Age: 67 years old Clinical indication: Device placement; Other: Post procedure, rule out pneumothorax TECHNIQUE: Imaging protocol: Radiologic exam of the chest. Views: 1 view. COMPARISON: CT chest ION (PULM ONLY) [id number] 11/30/2022 12:25 PM FINDINGS: Lungs: Redemonstrated right upper lobe mass. Pleural spaces: No discernible pneumothorax. No pleural effusion. Heart/Mediastinum: Unremarkable. No cardiomegaly. Bones/joints: Unremarkable. XR/XR chest 1V portable 89927 IMPRESSION: 1. No discernible pneumothorax. 2. Redemonstrated right upper lobe mass.
--- NOTE | 2022-12-10 08:37 | PM.OP ---
Operative Report Date of procedure: December 10, 2022 Pre-op diagnosis: Preop Diagnosis Suspected lung mets Procedure done: 03525 Dx Bronchoscope w/Washings or airway inspection 28318 Bx Bronchoscope w/Brushings or protected brushings 79044 Dx Bronchoscope w/BAL 59859 Bronch with computer image guided Navigational Bronchoscopy 14036 Bronchoscopy w/Transbronchial lung biopsy(s), single lobe 45532 Bronchoscopy w/Transbronchial needle aspiration biopsy(s), tracheal, main stem, and/or lobar bronchus 05859 Bronchoscopy w/ therapeutic aspiration of the tracheobronchial tree (clearance of airway secretions, removal of mucus plugs) 25473 EBUS Diag or Interven Peripheral lesion (radial EBUS) Surgeon: Jim Jones MD [facility] Brief History: Mr. Red Villareal is a 66-year-old male with past medical history of chronic smoker, right posterior hard palate mass in November 2021 s/p resection-pathology reported benign, referred by Dr. Godinez for pulmonary nodule, left nephrectomy August 2022 pathology positive for clear-cell renal cell carcinoma with no lymphovascular invasion, PET/CT 11/10/2022 showed Hypermetabolic right upper lobe pulmonary nodule, which has increased in size since 12/16/2021, is highly concerning for primary bronchogenic? carcinoma. The same lesion was 1.6 cm with SUV 6 on 12/16/2021 PET/CT-underwent navigational bronchoscopy guided biopsy on 12/26/2021-pathology reported single focus of atypical cells. Subsequent follow-up CT scans as well as the most recent PET/CT on 11/10/2022 showed hypermetabolic RUL pulmonary nodule now measuring 2.1 x 2.2 cm with SUV 8 concerning for primary lung cancer. PET/CT also showed cluster of tree-in-bud nodularity in the left lower lobe demonstrates mild FDG uptake and may be infectious or inflammatory. Redemonstrated hypermetabolic subcentimeter left parotid nodule but on my review it has decreased in size..? Two focal areas of FDG uptake in the rectum could be inflammatory, though correlation with colonoscopy is recommended to exclude an underlying lesion. Today I have scheduled patient for Ion robotic bronchoscopic guided biopsies of right upper lobe lesion to rule out malignancy Procedure: 41952 Dx Bronchoscope w/Washings or airway inspection 96395 Bx Bronchoscope w/Brushings or protected brushings 00410 Dx Bronchoscope w/BAL 57149 Bronch with computer image guided Navigational Bronchoscopy 09099 Bronchoscopy w/Transbronchial lung biopsy(s), single lobe 62490 Bronchoscopy w/Transbronchial needle aspiration biopsy(s), tracheal, main stem, and/or lobar bronchus 87866 Bronchoscopy w/ therapeutic aspiration of the tracheobronchial tree (clearance of airway secretions, removal of mucus plugs) 23748 EBUS Diag or Interven Peripheral lesion (radial EBUS) Indication: Description of the procedure: The procedure was explained to the patient and the consent was obtained. The patient was brought to the OR. Anesthesia: The patient underwent endotracheal intubation for general anesthesia. Local anesthesia: The Blu, right and left mainstem bronchi were anesthetized with 1% lidocaine, 1 mL at each site. Following induction of general anesthesia, the flexible bronchoscope used for initial inspection and airway clearance. The scope was advanced through the ET tube. The lower trachea mucosa appeared normal, no endotracheal lesion was seen. The blu was sharp. The blu, the right and left mainstem bronchi are anesthetized with 1% lidocaine. In a systematic manner bilateral bronchial tree was then examined. The bronchoscope was then introduced into the right mainstem bronchus. The right upper lobe, right middle lobe and right lower lobe bronchi were examined up to the third subsegmental level and no abnormalities were identified. There were significant mucus secretions which were suctioned right away. The bronchoscope was advanced into the left mainstem bronchus. The mucosa appeared normal with no endobronchial lesions. The left upper lobe, lingula and left lower lobe bronchi were examined up to the third subsegmental level and no abnormalities were identified. Mucosa appeared normal with no endobronchial lesion, active bleeding or mucous plug. There were significant mucus secretions in lower lobe-which were suctioned right away. After initial inspection (32533) as well as airway clearance with flexible bronchoscope(21443), ION robotic assisted navigational bronchoscope (94232) was introduced-and right upper lobe lesion was accessed. After confirming the location with radial EBUS (31632), under the fluoroscopy guidance -we were able to obtain biopsies using Cytobrush (80774), fine-needle(59329), forceps(47089). 1 pass with each of these instruments were used for touch prep and sent for rapid onsite evaluation-pathology reported seeing atypical cells. Total 1 pass with Cytobrush, 5 passes were made with fine-needle and 5 passes were made with forceps and all the samples were placed in formalin for histopathology examination. Bronchoalveolar lavage (74362) was performed from the right upper lobe, 10 mL of saline was instilled, fluid return was 6 mL. The fluid was mixed with blood and specks of tissue. There was some grade 1 bleeding which has controlled without instillation of cold saline or epinephrine. After making sure there is no active bleeding bronchoscope was retracted and procedure terminated, ION robotic bronchoscope was retracted and procedure terminated. Samples: A.right upper lobe lesion 1. 1 pass with Cytobrush(31314)-used for touch prep-reported negative for malignancy 2. Total of 5 passes were made using needle aspiration(27643); 1 pass used for touch prep - reported negative for malignancy; remaining 4 passes were placed in formalin for histopathology 3.Targeting the same area 5 passes were made using forceps (58578); 1 pass used for touch prep - reported positive for atypical cells; remaining 4 passes were placed in formalin for histopathology 6 8 4. Bronchoalveolar lavage (55109) from left lower lobe sent for cytology Complications: None.The patient was extubated and brought to the PACU in stable condition. Postprocedure chest x-ray: No evidence of pneumothorax Disposition: Patient can be discharged home in stable condition. Pt, and his accompanying family are aware that I am going to call them to update final biopsy results once available. Related Problem List Diagnoses (1) Suspected malignant neoplasm:
[2022-12-10 10:24] LABS: RBC Side Within 10% 2; WBC Within 10% 1
[2022-12-10 11:22] LABS: Total Cells Counted Bronch 450
[2022-12-10 11:23] LABS: Apprearance, Bronch Wash Clear (CLEAR); Color, Bronc Wash Slight Pink
[2022-12-10 11:24] LABS: PATH Referral Yes
--- NOTE | 2022-12-10 13:14 | ANE.PACU2 ---
Inpatient post-anesthesia follow up: Airway intact: Yes Vital signs: Temperature 97.4 F Pulse Rate 73 Respiratory Rate 18 Blood Pressure 124/73 Pulse Oximetry 98 Oxygen Delivery Me thod Room Air Oxygen Flow Rate 5 Fraction of Inspir ed Oxygen Hydration adequate: Yes Nausea and vomiting: No Pain level: 1 Mental status: Baseline
[2022-12-11 14:50] LABS: Cyto Order Verification Order Verified
== END 2022-12-10 10:10 | disposition home or self-care (01) ==
PROVIDERS: PCP Family Medicine; Visit Provider Internal Medicine Pulmonary Disease
PROC: 0BJ08ZZ Inspection of Tracheobronchial Tree, Via Natural or Artificial Opening Endoscopic (ICD-10-PCS; CPT 31622; principal; 2022-12-10 07:00)
DX: C34.90 Malignant neoplasm of unspecified part of unspecified bronchus or lung (principal); J44.9 Chronic obstructive pulmonary disease, unspecified; Z87.891 Personal history of nicotine dependence
CPT/HCPCS: 31623; 31624; 31627; 31628; 31629; 31645; 31654; 71045; 76000; 80503; 87070; 87205; 88112; 88305; 88342; 89050; J1100; J2370; J2405; J2704; J3010; J3490; J7030

== ENCOUNTER → 2023-01-08 14:24 | Outpatient (BNVA) | payer MEDICARE, SELFPAY | PROVIDERS: PCP Family Medicine; Visit Provider Thoracic Surgery (Cardiothoracic Vascular Surgery) | DX: C34.11 Malignant neoplasm of upper lobe, right bronchus or lung (principal); Z87.891 Personal history of nicotine dependence | CPT/HCPCS: 99203 ==

== ENCOUNTER → 2023-01-10 13:32 | Outpatient (BNVA) | payer MEDICARE, SELFPAY | PROVIDERS: PCP Family Medicine; Visit Provider Surgery | DX: R19.7 Diarrhea, unspecified (principal) | CPT/HCPCS: 99203 ==

== ENCOUNTER 2023-01-16 06:14 | Day surgery (SDC) | payer MEDICARE, SELFPAY ==
[2023-01-14 13:32] VITALS: BMI 24.3
[2023-01-16] MEDS: sodium chloride 0.9% 1,000 ML 30 ML IV (06:37)
[2023-01-16 06:43] VITALS: BP 117/85; PULSE 111; RESP 16; TEMP 36.1; O2SAT 96
--- NOTE | 2023-01-16 06:48 | ANES.PREANE2 ---
Pre-Anesthetic Assessment Height/Weight: Height 1.78 m Weight 77.111 kg Preop Diagnosis: screening Operation Date: 01/16/23 07:30 Proposed Procedures p 17523 colon Z12.11(Not Applicable) - Gilmar Luong DO Familial anesthetic complications: None Was Beta Jaden taken within 24 hours: N/A Was Clonidine taken within 24 hours: N/A Social Tobacco and No alcohol previous smoker Exam alert, oriented x 3, clear to auscultation bilaterally and regular rate & rhythm Airway Submandibular: within normal limits Cervical ROM: within normal limits Mallampati: Class II Dentition: false History/ROS No significant history except as noted Pulmonary Chronic Obstructive Pulmonary Disease lung cancer CV/HEM None reported left nephrectomy- renal cancer Hepatic None reported GI None reported Metabolic None reported Musc/skel None reported Neuropsych None reported Anesthetic Plan ASA status: 2 Anesthesia: Anesthesia Evaluation and MAC Risk of > 500 ml blood loss (7ml/kg in children): No Medications/Allergies Home Medications Medication Instructions Recorded Confirmed Last Taken Type albuterol sulfate 90 mcg/actuation 2 puff inhalation Q6H PRN 06/07/22 01/16/23 1 Year Ago Rx aerosol inhaler shortness of breath or wheezing ~01/16/22 #8.5 grams Allergies Allergy/AdvReac Type Severity Reaction Status Date / Time erythromycin base Allergy Intermediate ADR-Nausea Verified 01/16/23 06:32 Current Medications Generic Name Dose Route Start Last Admin Trade Name Freq PRN Reason Stop Dose Admin Sodium Chloride 1,000 mls @ 30 mls/hr 01/16/23 06:30 01/16/23 06:37 Sodium Chloride 0.9% IV 01/17/23 06:29 30 mls/hr .Q24H CLEO Administration PFSH Anesthesia Medical History (Updated 01/10/23 @ 14:42 by Gilmar Luong DO) History of malignant melanoma Renal cell carcinoma removed 2021 Surgical History (Updated 01/10/23 @ 14:41 by Gilmar Luong DO) History of nephrectomy Family History Father , AT 48 Heart attack Mother , AT 83 Cancer Social History Smoking and tobacco status: former smoker Alcohol intake: never Marital status: Current occupational status: retired Data Anesthesia Cardiac Studies: No Data to Display
--- NOTE | 2023-01-16 07:26 | W.PM.OPSUD ---
Surgery/Procedure H&P Update DATE OF PROCEDURE: January 16, 2023 DATE H&P PERFORMED: 01/10/23 H&P UPDATE INFORMATION: I have reviewed H&P completed within last 30 days, I have examined patient prior to procedure and No changes to prior documentation PREOP DIAGNOSIS: screening PLANNED PROCEDURE: Operation Date: 01/16/23 07:30 Proposed Procedures p 32682 colon Z12.11(Not Applicable) - Gilmar Luong DO
[2023-01-16 07:55] VITALS: BP 109/73; PULSE 79; RESP 16; TEMP 36.1; O2SAT 96
--- NOTE | 2023-01-16 07:59 | ANE.PACU2 ---
Inpatient post-anesthesia follow up: Airway intact: Yes Vital signs: Temperature 97.0 F Pulse Rate 79 Respiratory Rate 16 Blood Pressure 109/58 Pulse Oximetry 96 Oxygen Delivery Me thod Room Air Oxygen Flow Rate Fraction of Inspir ed Oxygen Hydration adequate: Yes Nausea and vomiting: No Pain level: 0 Mental status: Baseline
[2023-01-16 08:07] VITALS: BP 114/75; PULSE 72; RESP 16; O2SAT 96
== END 2023-01-16 08:30 | disposition home or self-care (01) ==
PROVIDERS: PCP Family Medicine; Visit Provider Surgery
PROC: 0DJD8ZZ Inspection of Lower Intestinal Tract, Via Natural or Artificial Opening Endoscopic (ICD-10-PCS; CPT 45378; principal; 2023-01-16 07:30)
DX: Z12.11 Encounter for screening for malignant neoplasm of colon (principal); K57.30 Diverticulosis of large intestine without perforation or abscess without bleeding; D12.8 Benign neoplasm of rectum; J44.9 Chronic obstructive pulmonary disease, unspecified; Z85.118 Personal history of other malignant neoplasm of bronchus and lung; Z87.891 Personal history of nicotine dependence
CPT/HCPCS: 45385; 88305; J2704; J7030

== ENCOUNTER → 2023-02-01 15:41 | Outpatient (BNVA) | payer MEDICARE, SELFPAY | PROVIDERS: PCP Family Medicine; Visit Provider Surgery | DX: D36.9 Benign neoplasm, unspecified site (principal) | CPT/HCPCS: 99024; 99212 ==

== ENCOUNTER 2023-02-05 11:51 | Outpatient (CLI) | payer MEDICARE, SELFPAY ==
[2023-02-05 12:10] VITALS: PULSE 74; RESP 18; O2SAT 98
[2023-02-05] MEDS: albuterol 2.5 mg/3 mL Neb INHALATION (12:10)
[2023-02-05 12:16] VITALS: PULSE 79
== END 2023-02-05 11:52 | disposition home or self-care (01) ==
PROVIDERS: PCP Family Medicine; Visit Provider Thoracic Surgery (Cardiothoracic Vascular Surgery)
DX: R91.8 Other nonspecific abnormal finding of lung field (principal)
CPT/HCPCS: 94060; 94726; 94729; J7613

== ENCOUNTER → 2023-02-12 14:28 | Outpatient (BNVA) | payer MEDICARE, SELFPAY | PROVIDERS: PCP Family Medicine; Visit Provider Thoracic Surgery (Cardiothoracic Vascular Surgery) | DX: C34.11 Malignant neoplasm of upper lobe, right bronchus or lung (principal); Z87.891 Personal history of nicotine dependence | CPT/HCPCS: 99213 ==

== ENCOUNTER 2023-02-19 14:47 | Oncology outpatient (recurring) (ONCR) | payer MEDICARE, SELFPAY | END 2023-03-03 23:59 | disposition home or self-care (01) | PROVIDERS: PCP Family Medicine; Visit Provider Internal Medicine Medical Oncology | DX: C34.11 Malignant neoplasm of upper lobe, right bronchus or lung (principal); N28.89 Other specified disorders of kidney and ureter; K11.8 Other diseases of salivary glands; Z87.891 Personal history of nicotine dependence | CPT/HCPCS: 99214; 99215 ==

== ENCOUNTER → 2023-03-12 08:32 | Outpatient (BNVA) | payer MEDICARE, SELFPAY | PROVIDERS: PCP Family Medicine; Visit Provider Thoracic Surgery (Cardiothoracic Vascular Surgery) | DX: C34.11 Malignant neoplasm of upper lobe, right bronchus or lung (principal); Z87.891 Personal history of nicotine dependence | CPT/HCPCS: 99213 ==

== ENCOUNTER 2023-03-19 16:34 | Inpatient (IN) | payer MEDICARE, SELFPAY ==
[2023-03-14 10:30] VITALS: BMI 26.1
[2023-03-14 11:57] LABS: Basophils # 0.1 10^3/uL (0.0-0.1); Basophils % 1.7 %; Eosinophils # 0.3 10^3/uL (0.0-0.8); Hematocrit 49.7 % (42.0-52.0); Hemoglobin 16.2 g/dL (11.7-16.6); Lymphocytes # 2.6 10^3/uL (0.8-4.8); Lymphocytes % 31.5 %; Mean Corpuscular HGB Conc 32.6 g/dL (30.0-36.0); Mean Corpuscular Hemoglobin 29.5 pg (28.0-34.0); Mean Corpuscular Volume 90.4 fl (80-94); Mean Platelet Volume 10.4 fL (7.4-10.4); Monocytes # 0.6 10^3/uL (0.2-0.9); Monocytes % 7.7 %; Neutrophils # 4.67 10^3/uL (1.8-7.7); Neutrophils % 55.7 %; Nucleated Red Blood Cells % 0 %; Platelet Count 245 10^3/cmm (130-400); Red Cell Distribution Width 12.8 % (12.1-15.1); White Blood Count 8.4 10^3/uL (4.0-10.0)
[2023-03-14 12:13] LABS: INR 0.92 (0.8-1.2)
[2023-03-14 12:26] LABS: Anion Gap 12.3 (5-19); Blood Urea Nitrogen 26 mg/dL (8-23); Calcium 8.8 mg/dL (8.5-10.5); Carbon Dioxide 28 mmol/L (22-29); Chloride 103 mmol/L (98-107); Glomerular Filtration Rate 60.2 mL/min (90-130); Glucose 79 mg/dL (65-115); Osmolality Calculated 292 mOsm/kg (285-295); Potassium 4.3 mmol/L (3.5-5.1); Sodium 139 mmol/L (136-145)
[2023-03-14 12:40] LABS: Bilirubin Urine Neg (Negative); Blood Urine 3+ (Negative); Glucose Urine UA Norm (Normal); Ketones Urine Negative (Negative); Leukocyte Esterase Urine Negative (Negative); Nitrate Urine Negative (Negative); Protein Urine Neg (Negative); Specific Gravity, Urine 1.015 (1.005-1.030); Urine Appearance Clear (CLEAR); Urine Color Yellow (Yellow); Urobilinogen Urine Neg (Negative); pH Urine 5 (5-7)
[2023-03-14 12:41] LABS: Add Urine Culture? No; Add Urine Microscopic? YES; Squamous Epithelial Cell Urine RARE /hpf (0-5); WBC Urine RARE /hpf (0-5)
--- NOTE | 2023-03-14 16:38 | P.ANESASSM_ITS ---
Pre-Anesthetic Assessment Height/Weight: Height 1.78 m Weight 82.554 kg Operation Date: 03/19/23 10:45 Proposed Procedures p right upper lobectomy 68523,C34.11(Right) - Kamran Deal MD Familial anesthetic complications: none Was Beta Jaden taken within 24 hours: N/A Was Clonidine taken within 24 hours: N/A Social Tobacco and No alcohol Exam alert, oriented x 3 and regular rate & rhythm Airway Submandibular: within normal limits Cervical ROM: within normal limits Mallampati: Class II Pulmonary Chronic Obstructive Pulmonary Disease lung mass (non small cell) Neuropsych Headache Anesthetic Plan ASA status: 3 Anesthesia: General (DLETT) and Regional (specify below) (Thoracic epidural) Other: A.line Medications/Allergies Home Medications Medication Instructions Recorded Confirmed Last Taken Type albuterol sulfate 90 mcg/actuation 2 puff inhalation Q6H PRN 06/07/22 03/14/23 1 Year Ago Rx aerosol inhaler shortness of breath or wheezing ~01/16/22 #8.5 grams Allergies Allergy/AdvReac Type Severity Reaction Status Date / Time erythromycin base Allergy Intermediate ADR-Nausea Verified 03/14/23 10:29 [facility] Anesthesia Medical History Adenomatous rectal polyp Tubular adenoma COPD (chronic obstructive pulmonary disease) History of malignant melanoma Non-small cell lung cancer Renal cell carcinoma Surgical History History of bronchoscopy (12/26/21) History of bronchoscopy (12/10/22) History of colonoscopy (01/16/23) History of melanoma excision (11/14/22) Wide excision of melanoma in situ History of nephrectomy (08/06/22) Left radical nephrectomy Family History Father , AT 48 Heart attack Mother , AT 83 Cancer Social History Smoking and tobacco status: former smoker Quit status (tobacco): has quit using tobacco Former quit date comment: smoked x40 years Alcohol intake: never Substance/Drug Use: never Marital status: Current occupational status: retired Data Anesthesia 03/14/23 10:44 03/14/23 10:44 Short CBC 03/14/23 Range/Units 10:44 WBC 8.4 (4.0-10.0) 10^3/uL Hgb 16.2 (11.7-16.6) g/dL Hct 49.7 (42.0-52.0) % MCV 90.4 (80-94) fl Plt Count 245 (130-400) 10^3/cmm Neut % (Auto) 55.7 % Neut # (Auto) 4.67 (1.8-7.7) 10^3/uL BMP 03/14/23 10:44 Sodium 139 Potassium 4.3 Chloride 103 Carbon Dioxide 28 BUN 26 H Creatinine 1.2 Glucose 79 Calcium 8.8 Urine 03/14/23 Range/Units 11:05 Urine Color Yellow (Yellow) Urine Appearance Clear (CLEAR) Urine pH 5 (5-7) Ur Specific [place] 1.015 (1.005-1.030) Urine Protein Neg (Negative) Urine Glucose (UA) Norm (Normal) Urine Ketones Negative (Negative) Urine Nitrate Negative (Negative) Urine Bilirubin Neg (Negative) Ur Leukocyte Esterase Negative (Negative) Urine RBC 5-10 H (0-2) /hpf Urine WBC Rare (0-5) /hpf Blood Bank 03/14/23 10:44 Blood Type A Positive Rho(D) Type Positive Antibody Screen Negative Coags 03/14/23 10:44 PT 12.70 INR 0.92 Cardiac Studies: No Data to Display
[2023-03-19 08:26] VITALS: BP 142/84; PULSE 87; RESP 18; TEMP 36.3; O2SAT 94
[2023-03-19] MEDS: sodium chloride 0.9% 1,000 ML 30 ML IV (08:51)
--- NOTE | 2023-03-19 09:27 | P.ANESUD_ITS ---
Pre-Anesthetic Update Pre-Anesthetic Assessment: Date of Surgery/Procedure: 03/19/23 Preop Ruth gnosis: Adenocarcinoma Right Upper Lobe Proposed Procedure: Operation Date: 03/19/23 12:05 Proposed Procedures p right upper lobectomy 04456,C34.11(Right) - Kamran Deal MD Any changes to Pre-Anesthetic Assessment?: No Last Intake: Intake Last Liquid Date 03/18/23 Last Liquid Time 18:00 Last Solid Date 03/18/23 Last Solid Time 16:30 Vitals: Temperature 97.3 F L 03/19/23 08:26 Temperature Source Temporal Artery S can 03/19/23 08:26 Pulse Rate 87 03/19/23 08:26 Respiratory Rate 18 03/19/23 08:26 Blood Pressure 142/84 03/19/23 08:26 Blood Pressure Chanel n 103 03/19/23 08:26 Pulse Oximetry 94 03/19/23 08:26 Oxygen Delivery Me thod Room Air 03/19/23 08:49 Exam: Pre-Anes Outpt Exam: alert, oriented x 3, clear to auscultation bilaterally and regular rate & rhythm Cardiac Studies: No Data to Display
--- NOTE | 2023-03-19 09:28 | ANES.PROC ---
Anesthesia Procedures Procedure/Date: 03/19/23 Epidural: Time Out Performed: Yes Consents Signed: Procedure Consent Consent: requested by attending/covering physician, from patient, from other, risks and benefits reviewed and patient agrees to proceed Thoracic Level: other (T7-8) Epidural position: sitting Epidural procedure: sterile prep of area, 1% lidocaine to numb the area, 18 g needle, negative for paresthesia passed, neg for paresthesia, test dose given, 1.5% xylocaine 1:200k epi (3 cc), no systemic response and sterile dressing applied Additional Comments: First attempt at T6-7 resulted in aspiration of heme from catheter, 2nd attempt at T7-8 had no aspiration of heme. OR at 5 cm, threaded to 11 cm
--- NOTE | 2023-03-19 10:28 | W.PM.OPSUD ---
Surgery/Procedure H&P Update DATE OF PROCEDURE: March 19, 2023 DATE H&P PERFORMED: 03/12/23 H&P UPDATE INFORMATION: I have reviewed H&P completed within last 30 days, I have examined patient prior to procedure and No changes to prior documentation CHANGES TO PREVIOUS DOCUMENTATION: Mr. Villareal has no new questions related to his planned right upper lobectomy. His , while obviously anxious, has no questions either and they are eager to proceed. General conduct of the surgery as well as risks which have been previously's discussed were again reviewed. Epidural catheter has been placed by our anesthesia colleagues. We will plan to proceed with surgery. PREOP DIAGNOSIS: Adenocarcinoma Right Upper Lobe PLANNED PROCEDURE: Operation Date: 03/19/23 12:05 Proposed Procedures p right upper lobectomy 76527,C34.11(Right) - Kamran Deal MD
[2023-03-19] MEDS: cefUROXime 1,500 MG in sodium chloride 0.9% (plus) 50 ML 100 MG IV ×2 (11:12→18:42)
--- NOTE | 2023-03-19 12:26 | SUR.OPER ---
3341 pt family (Lillian) updated on surgery progress
[2023-03-19] MEDS: ceFAZolin 1,000 mg SDV 2000 MG IRRIGATION (13:01)
--- NOTE | 2023-03-19 14:50 | SUR.OPER ---
1455 pt family (Emma) updated on surgery progress
[2023-03-19 15:09] VITALS: BP 109/63; PULSE 71; O2SAT 100
--- NOTE | 2023-03-19 15:19 | SUR.OPER ---
1519 report given to emerita gil, no questions at this time.
--- NOTE | 2023-03-19 15:41 | PM.OP ---
Operative Report Date of procedure: March 19, 2023 Pre-op diagnosis: Preop Diagnosis Adenocarcinoma Right Upper Lobe Post-op diagnosis: same Procedure done: Right upper lobectomy Specimens removed/disposition: Right upper lobe of lung Surgeon: Kamran Deal Anesthesia: General Estimated blood loss (mL): 200 Complications: None Condition: stable Disposition: ICU Brief History: Mr. Villareal is a 67-year-old gentleman referred to our service to consider surgical resection of a biopsy-proven adenocarcinoma of the right upper lobe. This lesion has been followed for some time and has noted documented growth as well as increasing PET scan activity. He septin was carefully evaluated by Dr. Jones and underwent navigational bronchoscopy on December 10 with pathology returning non-small cell carcinoma consistent with adenocarcinoma. Since that time he is undergone preoperative evaluation in preparation for considered resection. His PET scan also showed some activity in the rectal region requiring a colonoscopy by Dr. Luong which revealed a tubular adenoma. He is also sought opinion of our oncology service who also rec mended surgical resection. Details and risk of the procedure were carefully and frankly discussed with Mr. Villareal and his . We most recently had an office visit on March 12 for continued conversations at which time he wished for us to proceed with scheduling. Appropriate consents have been carefully reviewed and signed detailing the risks. Procedure: Thoracic epidural catheter was placed prior to entering the surgical suite. Mr. Villareal underwent general endotracheal anesthesia with double-lumen endotracheal tube placed. Appropriate invasive lines were placed including a right radial arterial line. He was placed in the left lateral decubitus position over axillary roll and protective padding. He is entire right chest was sterilely prepped and draped. A muscle-sparing limited right thoracotomy incision was made with cautery used to control bleeding. Latissimus muscle was divided. The anterior serratus muscle was retracted but not divided. The fifth intercostal space was entered. Moist laparotomy pads and the Finochietto retractor were placed. The chest was carefully opened. Right upper lobe mass could be easily palpated and as well there was a small spiculated lesion noted in the apex. Initial inspection revealed no evidence for abnormal fluid collection, substantial adenopathy, or pleural studding. The pleura was opened circumferentially around the hilum. Hilar dissection was initiated anteriorly and superiorly. The superior pulmonary vein was controlled and stapled with sparing of the branch to the right middle lobe. It was then divided. Dissection was then continued cranially isolating branches of the pulmonary artery to the right upper lobe. These were also taken down ligated and divided. Posteriorly, the bronchus to the [right/left] [upper/lower] lobe was dissected free. Fissure between middle lobe and lower lobe was divided using automated stapler. Pulmonary arterial branches of the right middle lobe were spared. Next, right upper lobe bronchus was stapled and sharply divided with scalpel. Bronchial stump was oversewn with 4-0 Prolene suture. Right upper lobe specimen was removed. Separate lymph nodes were collected from the proximal right pulmonary artery as well as near the middle lobe branch of the right pulmonary vein. The entire chest was irrigated with large amounts of antibiotic solution. Right middle and lower lobs were reinflated. No substantial air leaks were identified except for 1 small parenchymal tear of the superior lateral margin of the right middle lobe. 28 Hebrew drains x2 were placed over the diaphragm and out to the apex. This was connected to Pleur-evac suction. Retractor and sponges were removed. Sponge and needle count was correct. Chest wall was reapproximated with interrupted #1 Vicryl suture. The fascia was closed with running 0 Vicryl suture. The subcutaneous layer was closed with 2-0 Vicryl suture. Skin was reapproximated in a subcuticular manner with 3-0 Monocryl suture. Sterile dressing was applied. Patient was returned to the supine position and awakened from anesthesia. Mr. Villareal was extubated. He was then transferred to the ICU. His was counseled and escorted to the ICU waiting area. Chest x-ray is pending.
--- NOTE | 2023-03-19 17:06 | ANE.PACU2 ---
Inpatient post-anesthesia follow up: Airway intact: Yes Vital signs: Temperature 97.3 F Pulse Rate 71 Respiratory Rate 18 Blood Pressure 109/63 Pulse Oximetry 100 Oxygen Delivery Me thod Simple Mask Oxygen Flow Rate 10 Fraction of Inspir ed Oxygen Hydration adequate: Yes Nausea and vomiting: No Pain level: 4 Mental status: Baseline
[2023-03-19] MEDS: lactated ringers 1,000 ML 75 ML IV (17:08)
[2023-03-19 17:30] VITALS: PULSE 73; RESP 18; O2SAT 92
[2023-03-19 18:02] VITALS: O2SAT 92
[2023-03-19 19:43] VITALS: PULSE 66; RESP 18; O2SAT 91
[2023-03-19 22:00] VITALS: PULSE 68
[2023-03-20] VITALS (15 sets, daily range): BP systolic 101–133; BP diastolic 72–85; PULSE 67–104; RESP 16–27; O2SAT 88–95
[2023-03-20] MEDS: cefUROXime 1,500 MG in sodium chloride 0.9% (plus) 50 ML 100 MG IV ×2 (03:05→11:14)
[2023-03-20 03:44] LABS: Basophils % 0.1 %; Hematocrit 44.5 % (42.0-52.0); Hemoglobin 14.8 g/dL (11.7-16.6); Lymphocytes # 0.8 10^3/uL (0.8-4.8); Lymphocytes % 5.2 %; Mean Corpuscular HGB Conc 33.3 g/dL (30.0-36.0); Mean Corpuscular Hemoglobin 29.7 pg (28.0-34.0); Mean Corpuscular Volume 89.2 fl (80-94); Mean Platelet Volume 10.2 fL (7.4-10.4); Monocytes # 0.8 10^3/uL (0.2-0.9); Monocytes % 5.1 %; Neutrophils # 14.06 10^3/uL (1.8-7.7); Neutrophils % 89.2 %; Nucleated Red Blood Cells % 0 %; Platelet Count 235 10^3/cmm (130-400); Red Blood Count 4.99 10^6/uL (4.1-5.3); Red Cell Distribution Width 13.1 % (12.1-15.1); White Blood Count 15.8 10^3/uL (4.0-10.0)
[2023-03-20 04:04] LABS: Anion Gap 17.6 (5-19); Blood Urea Nitrogen 18 mg/dL (8-23); Calcium 8.3 mg/dL (8.5-10.5); Carbon Dioxide 21 mmol/L (22-29); Chloride 105 mmol/L (98-107); Glomerular Filtration Rate 60.2 mL/min (90-130); Glucose 135 mg/dL (65-115); Osmolality Calculated 292 mOsm/kg (285-295); Potassium 4.6 mmol/L (3.5-5.1); Sodium 139 mmol/L (136-145)
[2023-03-20] MEDS: ondansetron 2 mg/ML SDV 2 mL 4 MG IVP ×2 (05:54→11:19)
--- NOTE | 2023-03-20 06:00 | XRR_ITS ---
PROCEDURE INFORMATION: Exam: XR Chest Exam date and time: 03/20/2023 4:08 AM Age: 67 years old Clinical indication: Device placement; Other: Status post right upper lobectomy; Prior surgery; Surgery date: Post-operative (0-2 days); Additional info: Pod #1 status post right upper lobectomy TECHNIQUE: Imaging protocol: Radiologic exam of the chest. Views: 1 view. COMPARISON: CR XR chest 1V portable [id number] 12/10/2022 9:39 AM FINDINGS: Lungs: There is retrocardiac opacity in the left lung. No consolidation on the right. Right lung mass visible on 12/10/2022 is no longer apparent. Pleural spaces: There are dual pleural drains in the medial superior right thorax. No pneumothorax is visible. No pleural effusion is seen. Heart/Mediastinum: Cardiomediastinal contours are unremarkable. Bones/joints: Bones are unremarkable. Soft tissues: There is a small volume of soft tissue gas in the right neck and lateral lower chest wall. XR/XR chest 1V portable [id number] IMPRESSION: 1. No pneumothorax. 2. Right pleural drains are positioned in the medial superior thorax. 3. Retrocardiac opacity in the left lung. Probable atelectasis. Infection or aspiration not excluded. Continued follow-up is recommended.
--- NOTE | 2023-03-20 06:05 | PM.PN ---
Subjective Subjective: Postop day #1 status post right upper lobectomy. Thoracotomy discomfort appears to be under reasonable control. He does have some nausea this morning. Chest x-ray is quite clear. There is a small air leak noted. Chest tube output approximately 280 cc since surgery. Becoming more serous. Vitals/I&O/Wt Last Vital Signs Temp 97.3 F L 03/19/23 08:26 Pulse 68 03/19/23 22:00 Resp 18 03/19/23 19:43 BP 109/63 03/19/23 15:09 Pulse Ox 91 03/19/23 19:43 O2 Del Method Room Air 03/19/23 19:43 O2 Flow Rate 10 03/19/23 15:09 03/19/23 03/19/23 03/20/23 14:59 22:59 06:59 Intake Total 50 / 50 50 / 100 180 / 280 Output Total 463 / 463 663 / 1126 Balance 50 / 50 -413 / -363 -483 / -846 Physical Exam Chest: OTHER: Surgical dressing clean and dry. Chest tubes remain in position. Resp: COMMON NORMALS: normal respiratory effort and clear to auscultation bilaterally AUSCULTATION: clear to auscultation bilaterally Cardio: COMMON NORMALS: regular rate, regular rhythm, S1 normal heart sound present, No murmurs present (Cardio) and No rub (Cardio) RATE: regular rate RHYTHM: regular rhythm HEART SOUNDS: S1 normal heart sound present Urinary Catheter Management: Canales: Cath Placed During This Visit: yes Reason for Continuing Indwelling Catheter: Accurate Measurement of Urinary Output in Critically Ill Patients Urinary Catheter Date of Insertion: 03/19/23 Urinary Catheter Time of Insertion: 11:50 Data 03/20/23 02:17 03/20/23 02:17 A&P Assessment and plan (1) Status post lobectomy of lung: Postop day #1 We will discontinue arterial line this morning. Out of bed in chair. Received Zofran for nausea. I will leave chest tube to suction today and consider placing to waterseal this evening depending upon output. Small air leak is noted. CBC, BMP, chest x-ray in a.m. Attestations Medical Necessity Statement*: Postop day #1 status post right upper lobectomy for adenocarcinoma Coding Level of Care Code Acute Code for Chg Fwd Diagnoses Status post lobectomy of lung Z90.2
[2023-03-20] MEDS: lactated ringers 1,000 ML 75 ML IV (06:25)
--- NOTE | 2023-03-20 06:29 | PC.NURSE ---
Dr. Deal to bedside,updated on patient status. R radial A-line dc'd as ordered, tolerated well.
[2023-03-20] MEDS: pantoprazole DR 40 mg Tablet PO (08:53)
--- NOTE | 2023-03-20 09:30 | PM.MISC ---
Miscellaneous Note Purpose of Documentation: Progress note Note: Patient's epidural dressing intact, insertion site free of s/s of infection. Patient reports overall good pain control. Feeling sore with sitting up in the chair, but doesn't feel it necessary to adjust his pain regimen. Complaining of sore throat. Will write for chloraseptic spray
[2023-03-20] MEDS: oxyCODONE-APAP 5-325 mg Tablet PO (15:34)
[2023-03-20] MEDS: guaiFENesin 100 mg/5 mL UDC 10 mL 200 MG PO (16:16)
--- NOTE | 2023-03-20 16:40 | ECG_ITS ---
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 Measurements Intervals [place] Rate: 125 P: 0 MS: 0 QRS: 57 QRSD: 98 T: 38 QT: 297 QTc: 430 Interpretive Statements ATRIAL FIBRILLATION WITH RAPID VENTRICULAR RESPONSE Compared to ECG 09/06/2022 17:21:54 Sinus rhythm no longer present Short MS interval no longer present Electronically Signed On 03-20-2023 17:55:37 CDT by Landon Aldana M.D. [id number]
[2023-03-20] MEDS: metoprolol tartrate 1 mg/1 mL SDV 5 mL 2.5 MG IVP (16:55)
[2023-03-20] MEDS: dilTIAZem 5 mg/mL SDV 5 mL 20 MG IVP (18:27)
--- NOTE | 2023-03-20 19:07 | PC.NURSE ---
IVP Metoprolol didn't keep HR WNL, Dr. Thakkar gave t.o. for cardezem push and drip
[2023-03-20] MEDS: dilTIAZem 100 MG in sodium chloride 0.9% (add-van) 100 ML 10 MG IV (23:36)
[2023-03-21] VITALS (27 sets, daily range): BP systolic 106–136; BP diastolic 72–91; PULSE 71–109; RESP 17–36; TEMP -12.7–37.7; O2SAT 90–96
[2023-03-21 02:46] LABS: Basophils # 0.1 10^3/uL (0.0-0.1); Basophils % 0.3 %; Eosinophils % 0.1 %; Hematocrit 45.8 % (42.0-52.0); Lymphocytes # 1.4 10^3/uL (0.8-4.8); Lymphocytes % 8.3 %; Mean Corpuscular HGB Conc 32.8 g/dL (30.0-36.0); Mean Corpuscular Hemoglobin 29.4 pg (28.0-34.0); Mean Corpuscular Volume 89.8 fl (80-94); Mean Platelet Volume 10.3 fL (7.4-10.4); Monocytes # 1.1 10^3/uL (0.2-0.9); Neutrophils # 13.63 10^3/uL (1.8-7.7); Neutrophils % 83.9 %; Nucleated Red Blood Cells % 0 %; Platelet Count 210 10^3/cmm (130-400); Red Cell Distribution Width 13.4 % (12.1-15.1); White Blood Count 16.2 10^3/uL (4.0-10.0)
[2023-03-21 03:08] LABS: Anion Gap 14.1 (5-19); Blood Urea Nitrogen 21 mg/dL (8-23); Calcium 8.3 mg/dL (8.5-10.5); Carbon Dioxide 23 mmol/L (22-29); Chloride 106 mmol/L (98-107); Glomerular Filtration Rate 74.3 mL/min (90-130); Glucose 116 mg/dL (65-115); Osmolality Calculated 292 mOsm/kg (285-295); Potassium 4.1 mmol/L (3.5-5.1); Sodium 139 mmol/L (136-145)
[2023-03-21] MEDS: lactated ringers 1,000 ML 75 ML IV ×2 (03:32→20:34)
--- NOTE | 2023-03-21 05:53 | P.PN_ITS ---
Subjective Subjective: Postop day #2 status post right upper lobectomy. Developed atrial fibrillation last night with RVR. Received IV Lopressor then initiated Cardizem infusion. Heart rate now is in the low 90s with mostly A-fib with occasional sinus complexes. He is asymptomatic from this. Complains of dry throat related to his oxygen. Also continues to have intermittent nausea. Still with air leak in 1 chest tube. Total chest tube output since surgery approximate 500 cc. Approximately 200 cc past 24 hours. Now mostly serous. Chest x-ray remains clear. White count is elevated at 16,000. Afebrile. Vitals/I&O/Wt Last Vital Signs Temp 99.8 F H 03/21/23 04:00 Pulse 84 03/21/23 04:00 Resp 23 H 03/21/23 04:00 BP 110/77 03/21/23 04:00 Pulse Ox 93 03/21/23 04:00 O2 Del Method Room Air 03/20/23 19:53 O2 Flow Rate 10 03/19/23 15:09 03/20/23 03/20/23 03/21/23 14:59 22:59 06:59 Intake Total 220 / 220 1000 / 1220 240 / 1460 Output Total 214 / 214 1300 / 1514 Balance 220 / 220 786 / 1006 -1060 / -54 Physical Exam Chest: OTHER: Chest wall remained stable. Dressings are in place. Chest tubes remain in good position. Minimal subcu emphysema. Resp: COMMON NORMALS: clear to auscultation bilaterally AUSCULTATION: clear to auscultation bilaterally Cardio: OTHER: Slightly irregular rhythm. Heart rate 92. Extremity: NARRATIVE EXTREMITY EXAM: No lower extremity edema. Urinary Catheter Management: Canales: Cath Placed During This Visit: yes Reason for Continuing Indwelling Catheter: Accurate Measurement of Urinary Output in Critically Ill Patients Urinary Catheter Date of Insertion: 03/19/23 Urinary Catheter Time of Insertion: 11:50 Data 03/21/23 01:40 03/21/23 01:40 A&P Assessment and plan (1) Postoperative atrial fibrillation: Heart rate now under control with IV Cardizem infusion. I will initiate amiodarone 400 mg p.o. twice daily, first dose now (2) Status post lobectomy of lung: Continue aggressive pulmonary toilet. I will decreased epidural rate as a potential source for nausea. We have added Reglan every 6 hours as needed Cepacol spray for sore throat related to dehumidified oxygen Chest x-ray in a.m. Out of bed later today. We will consider placing remaining chest tube to waterseal later today Attestations Medical Necessity Statement*: Postop day #2 status post right upper lobectomy. Pathology pending. Postop atrial fibrillation Coding Level of Care Code Acute Code for [facility] Fwd Diagnoses Postoperative atrial fibrillation I97.89; I48.91 Status post lobectomy of lung Z90.2
--- NOTE | 2023-03-21 05:53 | PC.NURSE ---
Patient refused position changes all night. Did allow micro shifts. Pillows placed behind alternating shoulders and slid up in the bed a few times. Refusal of bath tonight. Dr. Thakkar assessed patient for routine assessments and left one chest tube connected to suction with the small air leak, left one chest tube water seal, and decided to give amiodarone PO for afib. Patient is pleasant and has been excited for being able to sleep throughout the night.
--- NOTE | 2023-03-21 06:00 | XR_ITS ---
WS: [id number] Portable AP upright chest, 03/21/2023 Clinical Data: POD#2 s/p Right upper lobectomy Comparison: Portable chest, 03/20/2023 Findings: There is minimal patchy opacity in the left lower lobe which could represent atelectasis an d/or pneumonia. There is a postoperative drain in the medial aspect of the right upper thorax. There is minimal subcutaneous emphysema in the right supraclavicular region and the right lateral chest wal l. No lung masses or nodules are seen. There is no pneumothorax. The heart is normal. The aortic arch and descending thoracic aorta show tortuosity. There are monitor leads on the chest wall. XR/XR chest 1V portable [id number] Impression: 1. Retrocardiac opacity which could represent atelectasis and/or pneumonia. 2. Postoperative changes in the right upper lobe with removal of mass. 3. Small amount of subcutaneous emphysema in the right supraclavicular region a nd right lateral chest wall.
[2023-03-21] MEDS: amiodarone 200 mg Tablet 400 MG PO ×2 (06:04→17:36)
--- NOTE | 2023-03-21 07:13 | PM.MISC ---
Miscellaneous Note Purpose of Documentation: Progress note Note: Epidural dressing and site c/d/i. Patient seems ambivalent about pain, saying i have a high pain tolerance, but also stating he's quite uncomfortable. Will increase bolus rate to 4 to see if this can help manage pain a little better. Patient is also having nausea. This isn't a side effect associated with epidural unless patient develops hypotension from sympathectomy, in which case nausea can occur during the hypotensive episode.
[2023-03-21] MEDS: dilTIAZem 100 MG in sodium chloride 0.9% (add-van) 100 ML 10 MG IV (08:26)
[2023-03-21] MEDS: pantoprazole DR 40 mg Tablet PO (08:26)
[2023-03-21] MEDS: HYDROmorphone 1 mg/mL INJ 1 mL 0.4 MG IVP (11:32)
--- NOTE | 2023-03-21 18:22 | PC.NURSE ---
Patient was able to sit up in chair for most of shift. He has been seen using IS per orders. Tolerates all activities well.
[2023-03-22] VITALS (19 sets, daily range): BP systolic 117–137; BP diastolic 76–101; PULSE 67–110; RESP 12–29; TEMP 36.6–37.6; O2SAT 93–99
[2023-03-22] MEDS: HYDROmorphone 1 mg/mL INJ 1 mL 0.4 MG IVP (04:12)
[2023-03-22 05:27] LABS: Basophils # 0.1 10^3/uL (0.0-0.1); Basophils % 0.5 %; Eosinophils # 0.1 10^3/uL (0.0-0.8); Eosinophils % 0.6 %; Hematocrit 46.3 % (42.0-52.0); Hemoglobin 15.3 g/dL (11.7-16.6); Lymphocytes # 1.5 10^3/uL (0.8-4.8); Lymphocytes % 12.3 %; Mean Corpuscular Hemoglobin 29.7 pg (28.0-34.0); Mean Corpuscular Volume 89.9 fl (80-94); Mean Platelet Volume 9.8 fL (7.4-10.4); Monocytes # 0.9 10^3/uL (0.2-0.9); Neutrophils # 9.88 10^3/uL (1.8-7.7); Neutrophils % 79.2 %; Nucleated Red Blood Cells % 0 %; Platelet Count 194 10^3/cmm (130-400); Red Blood Count 5.15 10^6/uL (4.1-5.3); Red Cell Distribution Width 13.3 % (12.1-15.1); White Blood Count 12.5 10^3/uL (4.0-10.0)
--- NOTE | 2023-03-22 06:00 | XR_ITS ---
WS: [id number] Portable AP upright chest, 03/22/2023 Clinical Data: POD#3 s/p lobectomy(1 chest tube to water seal) Comparison: Portable chest, 03/21/2023 Findings: The medial right chest tube remains in the same position. There is a 25% right upper pneumo thorax. Left lung is clear. The heart size remains the same. Monitor leads are on the chest wall. The patchy opacity in the left lower lobe has diminished slightly XR/XR chest 1V portable [id number] Impression: Development of 25% right upper pneumothorax
[2023-03-22] MEDS: amiodarone 200 mg Tablet 400 MG PO ×2 (06:40→17:10)
--- NOTE | 2023-03-22 07:10 | PM.PN ---
Subjective Subjective: Postop day #3 status post right upper lobectomy. Chest x-ray this morning reveals pneumothorax after the chest tube replaced on waterseal last night. I have returned the chest tubes to active suction. Thoracotomy dressings were changed. Incision line is clean, dry, and intact. Chest wall is stable. Minimal subcutaneous emphysema. Pain is under good control. Nausea appears to have resolved. White count is now down to 12,000 from 16,000 yesterday. Vitals/I&O/Wt Last Vital Signs Temp 99.8 F H 03/21/23 04:00 Pulse 98 03/21/23 22:00 Resp 24 H 03/21/23 19:42 BP 110/77 03/21/23 04:00 Pulse Ox 96 03/21/23 19:42 O2 Del Method Nasal Cannula 03/21/23 19:42 O2 Flow Rate 2 03/21/23 19:42 03/21/23 03/22/23 03/22/23 22:59 06:59 14:59 Intake Total 1000 / 1445.000 100 / 1545.000 Output Total 1310 / 1310 Balance -310 / 135.000 100 / 235.000 Physical Exam Chest: OTHER: Thoracotomy incision is clean, dry, and intact. Surgical dressings were changed, incision pain with Betadine, new dressings applied. Chest tubes remain in position. Resp: COMMON NORMALS: normal respiratory effort and clear to auscultation bilaterally AUSCULTATION: clear to auscultation bilaterally Cardio: COMMON NORMALS: regular rate RATE: regular rate OTHER: Appears to still be having intermittent atrial fibrillation though the rate is better controlled. We will give his morning dose of amiodarone early. Currently receiving 400 milligrams twice daily. Back/Pelvis: OTHER: Epidural catheter was removed today. Insertion site is clean and dry. Sterile dressing applied. Extremity: COMMON NORMALS: no clubbing, cyanosis or edema Urinary Catheter Management: Canales: Cath Placed During This Visit: yes Reason for Continuing Indwelling Catheter: Accurate Measurement of Urinary Output in Critically Ill Patients Urinary Catheter Date of Insertion: 03/19/23 Urinary Catheter Time of Insertion: 11:50 Data 03/22/23 04:38 03/21/23 01:40 A&P Assessment and plan (1) Status post lobectomy of lung: Postop day #3 status post right upper lobectomy. Still with an air leak, therefore placed back to Pleur-evac suction. Chest tube output is decreasing. No substantial fluid collection on x-ray though there was a pneumothorax related to the chest has been on waterseal. They are now back on suction. I will reassess drainage later and consider removing the more inferior tube which has not shown an air leak since surgery. Plan: Chest tube to suction. Chest x-ray in a.m. Epidural catheter discontinued. I will plan to remove Canales catheter later today. Attestations Medical Necessity Statement*: Postop day #3 status post right upper lobectomy with postop airleak. Coding Level of Care Code Acute Code for Chg Fwd Diagnoses Status post lobectomy of lung Z90.2
--- NOTE | 2023-03-22 07:24 | PC.NURSE ---
Dr. Thakkar arrived to unit to assess patient. Changed dressings and reconnected chest tubes to suction. Asked that amiodarone be given early to try and convert from a fib to sinus rhythm
[2023-03-22] MEDS: pantoprazole DR 40 mg Tablet PO (08:19)
--- NOTE | 2023-03-22 08:51 | PC.SOCIAL ---
IMM update IMM updated with patient and family at bedside. Verbalized an understanding. Copy Pg 2 provided. Initialled, dated, timed, and placed in chart.
[2023-03-22] MEDS: oxyCODONE-APAP 5-325 mg Tablet PO ×3 (09:58→23:14)
--- NOTE | 2023-03-22 10:34 | PM.MISC ---
Miscellaneous Note Purpose of Documentation: Progress note Note: patient reports good pain control and improved nausea as well. Epidural had been pulled by Dr. Thakkar before my arrival at bedside. Will transition remaining pain control to primary service. Communicated directly with nurse staff to withhold any anticoagulation for 24 hrs after epidural was pullled, unless approved by me.
--- NOTE | 2023-03-22 10:52 | PC.NURSE ---
pain medicine given to aid in pt and moving pt and refused to get up because dr Thakkar is going to be back to see him between 10 and 12
[2023-03-22] MEDS: lactated ringers 1,000 ML 75 ML IV (15:26)
[2023-03-23] VITALS (63 sets, daily range): BP systolic 104–139; BP diastolic 67–87; PULSE 63–99; RESP 1–30; TEMP 36.7–37; O2SAT 93–98
[2023-03-23] MEDS: oxyCODONE-APAP 5-325 mg Tablet PO ×2 (05:29→10:48)
--- NOTE | 2023-03-23 06:00 | XRR_ITS ---
PROCEDURE INFORMATION: Exam: XR Chest Exam date and time: 03/23/2023 5:41 AM Age: 67 years old Clinical indication: Device placement; Chest tube; Additional info: Chest tubes back to suction TECHNIQUE: Imaging protocol: Radiologic exam of the chest. Views: 1 view. Total images: 512 COMPARISON: CR XR chest 1V portable [id number] 03/22/2023 5:23 AM FINDINGS: Tubes, catheters and devices: Surgical drain demonstrated in the right pleural space adjacent to mediastinum. Lungs: Trace atelectasis or scar noted in the left lung base. Mild opacity laterally in the right hemithorax felt to represent atelectasis versus re-expansion edema. Pleural spaces: Improved right pneumothorax with residual small right apical pneumothorax. Heart/Mediastinum: Unremarkable. No cardiomegaly. Bones/joints: Unremarkable. Other findings: Stable postsurgical changes. XR/XR chest 1V portable [id number] IMPRESSION: 1. Trace atelectasis or scar noted in the left lung base. 2. Improved right pneumothorax with residual small right apical pneumothorax. 3. Mild opacity laterally in the right hemithorax felt to represent atelectasis versus re-expansion edema.
[2023-03-23] MEDS: pantoprazole DR 40 mg Tablet PO (09:08)
[2023-03-23] MEDS: amiodarone 200 mg Tablet 400 MG PO ×2 (09:08→17:04)
--- NOTE | 2023-03-23 09:51 | PM.PN ---
Subjective Subjective: Postop day #4 status post right upper lobectomy. The previously noted pneumothorax on yesterday has substantially improved almost completely resolved after resumption of chest tubes to Pleur-evac suction. There is still a modest air leak noted. Overall chest tube output is about 275 cc over the past 24 hours which is slightly above the volume that I would like prior to removing any of the tubes. His pulmonary status continues to improve. He has a very effective cough. Pain has been under very good control with oral medication. He is in very good spirits. Final pathologic report is not out though I have spoken by phone with Dr. Zamora who noted that margins were clear and lymph node inspection appeared to be negative for evidence of metastatic disease. I replaced his postop thoracotomy dressing. Incision line remains clean, dry, and intact. Chest wall is stable. He is having improved and longer episodes of sinus rhythm though he still has occasional atrial fibrillation. Vitals/I&O/Wt Last Vital Signs Temp 98.6 F 03/23/23 04:00 Pulse 75 03/23/23 08:00 Resp 16 03/23/23 08:00 BP 139/85 03/23/23 04:00 Pulse Ox 93 03/23/23 08:00 O2 Del Method Nasal Cannula 03/23/23 08:00 O2 Flow Rate 2 03/23/23 08:00 03/22/23 03/23/23 03/23/23 22:59 06:59 14:59 Intake Total 600 / 2100 Output Total 1025 / 1025 375 / 1400 Balance -425 / 1075 -375 / 700 Physical Exam Chest: COMMONS NORMALS: normal inspection of the chest and normal palpation of entire chest wall Resp: COMMON NORMALS: normal respiratory effort, No use of accessory muscles and clear to auscultation bilaterally AUSCULTATION: clear to auscultation bilaterally Cardio: OTHER: Heart rate 80-100. Some irregularity consistent with intermittent atrial fibrillation. Extremity: COMMON NORMALS: no clubbing, cyanosis or edema Urinary Catheter Management: Canales: Cath Placed During This Visit: yes Reason for Continuing Indwelling Catheter: Accurate Measurement of Urinary Output in Critically Ill Patients Urinary Catheter Date of Insertion: 03/19/23 Urinary Catheter Time of Insertion: 11:50 Data 03/22/23 04:38 03/21/23 01:40 A&P Assessment and plan (1) Status post lobectomy of lung: Plan I will discontinue Canales catheter today I will plan to leave chest tube to suction and keep both chest tube in place for at least another 24 hours until the overall fluid drainage is averaging less than 10 cc/h. Still with modest air leak. We will continue suction for now. If this continues for protracted period I may consider placement of a thoracic vent to allow for outpatient management. Final pathology report is pending. I will now reinitiate Lovenox prophylactically as his epidural catheter has been discontinued for more than 24 hours. CBC, BMP, chest x-ray in a.m. Attestations Medical Necessity Statement*: Status post right upper lobectomy postop day #4 Coding Level of Care Code Acute Code for Chg Fwd Diagnoses Status post lobectomy of lung Z90.2
[2023-03-23] MEDS: enoxaparin 40 mg/0.4 mL Syringe SUBCUT (10:48)
[2023-03-23] MEDS: oxyCODONE-APAP 5-325 mg Tablet 1 TAB PO ×2 (17:04→21:32)
[2023-03-24] VITALS (25 sets, daily range): BP systolic 114–141; BP diastolic 79–94; PULSE 63–97; RESP 10–32; TEMP 36.5–36.8; O2SAT 94–99
[2023-03-24 03:53] LABS: Basophils # 0.1 10^3/uL (0.0-0.1); Eosinophils # 0.4 10^3/uL (0.0-0.8); Eosinophils % 4.5 %; Hematocrit 42.4 % (42.0-52.0); Hemoglobin 13.7 g/dL (11.7-16.6); Lymphocytes # 1.5 10^3/uL (0.8-4.8); Lymphocytes % 18.7 %; Mean Corpuscular HGB Conc 32.3 g/dL (30.0-36.0); Mean Corpuscular Hemoglobin 29.2 pg (28.0-34.0); Mean Corpuscular Volume 90.4 fl (80-94); Mean Platelet Volume 10.1 fL (7.4-10.4); Monocytes # 0.7 10^3/uL (0.2-0.9); Neutrophils # 5.35 10^3/uL (1.8-7.7); Neutrophils % 66.4 %; Nucleated Red Blood Cells % 0 %; Platelet Count 225 10^3/cmm (130-400); Red Blood Count 4.69 10^6/uL (4.1-5.3); Red Cell Distribution Width 13.2 % (12.1-15.1)
[2023-03-24 04:33] LABS: Anion Gap 11.8 (5-19); Blood Urea Nitrogen 20 mg/dL (8-23); Calcium 8.3 mg/dL (8.5-10.5); Carbon Dioxide 27 mmol/L (22-29); Chloride 104 mmol/L (98-107); Glomerular Filtration Rate 66.6 mL/min (90-130); Glucose 93 mg/dL (65-115); Osmolality Calculated 290 mOsm/kg (285-295); Potassium 3.8 mmol/L (3.5-5.1); Sodium 139 mmol/L (136-145)
[2023-03-24] MEDS: oxyCODONE-APAP 5-325 mg Tablet 1 TAB PO ×4 (04:52→22:35)
--- NOTE | 2023-03-24 06:00 | XRR_ITS ---
PROCEDURE INFORMATION: Exam: XR Chest Exam date and time: 03/24/2023 5:33 AM Age: 67 years old Clinical indication: Device placement; Chest tube; Additional info: Chest tubes remain to suction/improved pulmonary toilet TECHNIQUE: Imaging protocol: Radiologic exam of the chest. Views: 1 view. COMPARISON: CR (CHEST, ) 03/23/2023 5:41 AM FINDINGS: Tubes, catheters and devices: Right chest tube remains positioned with the tip in the medial apex, stable since the prior radiograph yesterday. Lungs: Stable multifocal opacity in the lateral subpleural right lung and right perihilar region. Stable ill-defined opacity in the lateral inferior left lung. No large effusion. Pleural spaces: Stable small right apical pneumothorax. Heart/Mediastinum: Cardiac silhouette is unremarkable. Bones/joints: Bones are unremarkable. XR/XR chest 1V portable [id number] IMPRESSION: 1. Stable small right apical pneumothorax. Stable chest tube position. 2. Stable nonspecific multifocal opacity in both lungs consistent with pulmonary nodules and masses visible prior chest CT.
[2023-03-24] MEDS: pantoprazole DR 40 mg Tablet PO (08:50)
[2023-03-24] MEDS: amiodarone 200 mg Tablet 400 MG PO ×2 (08:50→17:37)
--- NOTE | 2023-03-24 10:53 | P.PN_ITS ---
Subjective Subjective: Postop day #4 status post right upper lobectomy. Still with some modest air leak. Chest tube drain is over the past 12 hours proximal 120 cc and is serous. Laboratory data reviewed. White count is now normal at 8. He looks very good. Pain is under very good control. Tolerating diet well. Nausea has resolved. Chest x-ray still reveals apical pneumothorax. Final pathology report is still pending. Vitals/I&O/Wt Last Vital Signs Temp 97.7 F 03/24/23 07:47 Pulse 76 03/24/23 08:00 Resp 18 03/24/23 08:00 BP 125/81 03/24/23 00:25 Pulse Ox 94 03/24/23 08:00 O2 Del Method Nasal Cannula 03/24/23 08:00 O2 Flow Rate 2 03/24/23 08:00 03/23/23 03/24/23 03/24/23 22:59 06:59 14:59 Intake Total 400 / 850 100 / 950 200 / 200 Output Total 750 / 1000 360 / 1360 250 / 250 Balance -350 / -150 -260 / -410 -50 / -50 Physical Exam Chest: OTHER: No subcutaneous emphysema. Incision line is clean and dry. More posterior ch est tube was discontinued. When chest tube remains with small air leak. Urinary Catheter Management: Canales: Cath Placed During This Visit: yes Reason for Continuing Indwelling Catheter: Accurate Measurement of Urinary Output in Critically Ill Patients Urinary Catheter Date of Insertion: 03/19/23 Urinary Catheter Time of Insertion: 11:50 Data 03/24/23 02:22 03/24/23 02:22 A&P Assessment and plan (1) Status post lobectomy of lung: Postop day #4 status post right upper lobectomy. 1 chest tube discontinued Many chest tube still has small air leak. No available floor beds. We will leave in ICU. Continue current chest tube to suction. Chest x-ray in a.m. If there is still air leak by Saturday, I will recommend transitioning to a thoracic vent which will allow for outpatient management. I did discuss this with Mr. Villareal. Attestations Medical Necessity Statement*: Postop day #4 status post right upper lobectomy Coding Level of Care Code Acute Code for Chg Fwd Diagnoses Status post lobectomy of lung Z90.2
[2023-03-24] MEDS: enoxaparin 40 mg/0.4 mL Syringe SUBCUT (11:13)
--- NOTE | 2023-03-24 12:30 | PC.NURSE ---
Dr Thakkar here prior removed chest tube 1 dressing changed after cleaning site ... up in bed am care done cleaned up
--- NOTE | 2023-03-24 12:36 | PC.SOCIAL ---
imm update Imm updated with patient at bedside. Copy of page 2 provided. Patient verbalized understanding. Copy in chart initialed, dated and timed.
[2023-03-25] VITALS (30 sets, daily range): BP systolic 113–131; BP diastolic 79–93; PULSE 61–105; RESP 8–26; TEMP 36.9; O2SAT 89–100
--- NOTE | 2023-03-25 06:00 | XRR_ITS ---
PROCEDURE INFORMATION: Exam: XR Chest Exam date and time: 03/25/2023 5:55 AM Age: 67 years old Clinical indication: Other: Chest tube disconnected; Additional info: Postop day #5. 1 chest tube discontinued. Small airleak, . TECHNIQUE: Imaging protocol: Radiologic exam of the chest. Views: 1 view. COMPARISON: CR (CHEST, ) 03/24/2023 5:33 AM FINDINGS: Tubes, catheters and devices: Right-sided chest tube remains in satisfactory position. Persistent small right apical pneumothorax. No large pleural effusion. Lungs: Streaky bilateral atelectasis seen, most prominently in the left lung base. Pneumonia should be excluded clinically. Pleural spaces: See Tubes, catheters and devices finding. Heart/Mediastinum: Stable cardiomediastinal silhouette. Bones/joints: Degenerative changes of the spine seen. Soft tissues: Small amount of subcutaneous emphysema is seen over the right lateral chest wall. XR/XR chest 1V portable [id number] IMPRESSION: 1. Persistent small right apical pneumothorax, with chest tube is in satisfactory position. 2. Bibasilar atelectasis, left greater than right. Pneumonia should be excluded clinically.
--- NOTE | 2023-03-25 07:38 | P.PN_ITS ---
Subjective Subjective: Mr. Villareal is doing well. There is still a modest air leak though the chest x- ray looks quite good. Low chest tube fluid output. Vitals/I&O/Wt Last Vital Signs Temp 98.5 F 03/25/23 04:00 Pulse 65 03/25/23 07:00 Resp 14 03/25/23 07:00 BP 131/86 03/25/23 07:00 Pulse Ox 94 03/25/23 07:00 O2 Del Method Nasal Cannula 03/24/23 19:57 O2 Flow Rate 2 03/24/23 19:57 03/24/23 03/25/23 03/25/23 22:59 06:59 14:59 Intake Total 240 / 1120 Output Total 300 / 800 755 / 1555 Balance -60 / 320 -755 / -435 Physical Exam Chest: OTHER: Chest wall is stable. Incision line clean, dry, and intact. No subcutaneous emphysema. Remaining chest tube was in good position. Resp: COMMON NORMALS: normal respiratory effort, No use of accessory muscles and clear to auscultation bilaterally AUSCULTATION: clear to auscultation bilaterally Cardio: COMMON NORMALS: regular rate, regular rhythm, S1 normal heart sound present, No murmurs present (Cardio) and No rub (Cardio) RATE: regular rate RHYTHM: regular rhythm HEART SOUNDS: S1 normal heart sound present Extremity: COMMON NORMALS: no clubbing, cyanosis or edema Urinary Catheter Management: Canales: Cath Placed During This Visit: yes Reason for Continuing Indwelling Catheter: Accurate Measurement of Urinary Output in Critically Ill Patients Urinary Catheter Date of Insertion: 03/19/23 Urinary Catheter Time of Insertion: 11:50 Data 03/24/23 02:22 03/24/23 02:22 A&P Assessment and plan (1) Status post lobectomy of lung: Status post right upper lobectomy with still continued small air leak. Plan: I discussed Mr. Villareal that I recommend placement of a thoracic vent tomorrow morning if the air leak is not resolved. This will allow for outpatient management. He states understanding and is agreeable. I will make him n.p.o. at midnight for possible vent placement tomorrow morning after reassessment for airleak in the morning. Attestations Medical Necessity Statement*: Status post right upper lobectomy Coding Level of Care Code Acute Code for Chg Fwd Diagnoses Status post lobectomy of lung Z90.2
[2023-03-25] MEDS: pantoprazole DR 40 mg Tablet PO (09:37)
[2023-03-25] MEDS: amiodarone 200 mg Tablet 400 MG PO ×2 (09:41→17:38)
[2023-03-25] MEDS: oxyCODONE-APAP 5-325 mg Tablet 1 TAB PO ×4 (10:01→23:42)
--- NOTE | 2023-03-25 16:42 | PM.MISC ---
Miscellaneous Note Purpose of Documentation: There is a very small air leak this afternoon which is clearly improved from exam this morning. He is up in chair speaking with his . He is in very good spirits. Minimal discomfort. Good breathing capacity. Vital signs are stable. Normal sinus rhythm. No reports of atrial fibrillation today by nursing service. I will reassess tomorrow morning with chest x-ray and examination as to whether there is still an air leak. If not, I will consider placing to waterseal and observe him for the remainder of the day. If however there remains any air leak at all I would recommend proceeding with thoracic vent placement, which will allow for more expedited discharge and outpatient management. Rationale for this was carefully discussed with Mr. Villareal and his . They state understanding and are in agreement. I will make final decision concerning thoracic vent placement with examination in the morning. He will be n.p.o. after midnight in case Vent placement is required
[2023-03-26] VITALS (18 sets, daily range): BP systolic 109–134; BP diastolic 69–85; PULSE 65–95; RESP 10–23; O2SAT 90–96
[2023-03-26] MEDS: oxyCODONE-APAP 5-325 mg Tablet 1 TAB PO ×2 (05:23→11:31)
--- NOTE | 2023-03-26 06:00 | XRR_ITS ---
PROCEDURE INFORMATION: Exam: XR Chest Exam date and time: 03/26/2023 4:28 AM Age: 67 years old Clinical indication: Screening exam; Pre-operative exam; Cardiovascular screening; Prior surgery; Surgery date: 1-6 months; Surgery type: Lobectomy; Additional info: Pre-op: R. Thoracic vent: S/P lobectomy TECHNIQUE: Imaging protocol: Radiologic exam of the chest. Views: 1 view. COMPARISON: CR (CHEST, ) 03/25/2023 5:55 AM FINDINGS: Lungs: Minimal persistent trace left basilar likely atelectasis. Pleural spaces: Right-sided chest tube noted in place. Persistent right-sided pneumothorax. Heart/Mediastinum: The cardiomediastinal silhouette is within normal limits. Bones/joints: Unremarkable. XR/XR chest 1V portable [id number] IMPRESSION: Right-sided chest tube noted in place. Persistent right-sided pneumothorax.
--- NOTE | 2023-03-26 06:21 | P.PN_ITS ---
Subjective Subjective: Mr. Villareal rested well last night. No complaints this morning. Small intermittent air leak is still noted and there is a small apical pneumothorax on today's chest x-ray. Remains in sinus rhythm with no recent recurrence of A- fib. Vitals/I&O/Wt Last Vital Signs Temp 98.5 F 03/25/23 19:00 Pulse 66 03/26/23 06:00 Resp 13 03/26/23 06:00 BP 134/85 03/26/23 06:00 Pulse Ox 94 03/26/23 05:23 O2 Del Method Room Air 03/26/23 04:00 O2 Flow Rate 2 03/25/23 11:00 03/25/23 03/25/23 03/26/23 14:59 22:59 06:59 Intake Total 480 / 480 240 / 720 0 / 720 Output Total 200 / 200 675 / 875 520 / 1395 Balance 280 / 280 -435 / -155 -520 / -675 Physical Exam Chest: OTHER: Chest wall is stable. No crepitance. Incision line clean and dry. Resp: COMMON NORMALS: clear to auscultation bilaterally AUSCULTATION: clear to auscultation bilaterally Cardio: COMMON NORMALS: regular rate, regular rhythm, No murmurs present (Cardio) and No rub (Cardio) RATE: regular rate RHYTHM: regular rhythm Urinary Catheter Management: [place]: Cath Placed During This Visit: yes Reason for Continuing Indwelling Catheter: Accurate Measurement of Urinary Output in Critically Ill Patients Urinary Catheter Date of Insertion: 03/19/23 Urinary Catheter Time of Insertion: 11:50 Data 03/24/23 02:22 03/24/23 02:22 A&P Assessment and plan (1) Status post lobectomy of lung: Plan Plan: We will place a 13 [place] thoracic vent apically and remove the remaining chest tube. We will plan for outpatient management. Details of risk of procedure again carefully discussed with Mr. Villareal. All questions answered. He wishes to proceed. Attestations Medical Necessity Statement*: Status post right upper lobectomy with postop airleak Coding Level of Care Code Acute Code for Chg Fwd Diagnoses Status post lobectomy of lung Z90.2
--- NOTE | 2023-03-26 07:06 | PC.NURSE ---
OR team at bedside to take patient to OR
[2023-03-26] MEDS: lidocaine 2% INJ 20 mL 3 ML INJECTION (07:20)
--- NOTE | 2023-03-26 07:25 | P.ANESUD_ITS ---
Pre-Anesthetic Update Pre-Anesthetic Assessment: Date of Surgery/Procedure: 03/26/23 Preop Ruth gnosis: Adenocarcinoma Right Upper Lobe Proposed Procedure: Operation Date: 03/19/23 11:10 Proposed Procedures p right upper lobectomy 02396,C34.11(Right) - Kamran Deal MD Operation Date: 03/26/23 07:10 Proposed Procedures p Thoracic Vent (from ICU)(Right) - Kamran Deal MD Any changes to Pre-Anesthetic Assessment?: Yes Changes from Pre-Anesthetic Assessment: One week postop thoracotomy, contd apical PTX/air leak. Thoracic vent planned Last Intake: Intake Last Liquid Date 03/18/23 Last Liquid Time 18:00 Last Solid Date 03/18/23 Last Solid Time 16:30 Vitals: Temperature 98.5 F 03/25/23 19:00 Temperature Source Axillary 03/25/23 19:00 Pulse Rate 66 03/26/23 06:00 Pulse Rhythm Regular 03/25/23 20:00 Pulse Strength 3+ Normal 03/25/23 20:00 Respiratory Rate 13 03/26/23 06:00 Respiratory Effort Spontaneous, Non- Labored 03/26/23 05:23 Respiratory Depth Normal 03/26/23 05:23 Respiratory Patter n Normal 03/26/23 05:23 Blood Pressure 134/85 03/26/23 06:00 Blood Pressure Chanel n 101 03/26/23 06:00 Pulse Oximetry 94 03/26/23 05:23 Oxygen Delivery Me thod Room Air 03/26/23 04:00 Oxygen Flow Rate 2 03/25/23 11:00 Exam: Pre-Anes Outpt Exam: alert, oriented x 3, clear to auscultation bilaterally and regular rate & rhythm Additional Exam Findings (including area of procedure): Plan MAC to GE/LMA. Cardiac Studies: No Data to Display
--- NOTE | 2023-03-26 08:12 | P.OP_ITS ---
Operative Report Date of procedure: March 26, 2023 Pre-op diagnosis: Preop Diagnosis status post right upper lobectomy Preop Diagnosis status post right upper lobectomy Post-op diagnosis: same Procedure done: Right 13 [place] thoracic vent placement Pathology: none sent Surgeon: Kamran Deal Anesthesia: MAC and Local (1 cc 1% lidocaine) Complications: None Condition: stable Disposition: ICU Brief History: Mr. Villareal is a 67-year-old gentleman is status post right upper lobectomy for a adenocarcinoma. He had a small airleak postop. I have recommended thoracic vent placement to allow for outpatient management. Details of risk the procedure were carefully and frankly discussed. Proper consents have been reviewed and signed. Procedure: Mr. Villareal was taken to the operating room theater and carefully positioned while remaining on his ICU bed. He underwent IV conscious sedation with anesthesia monitoring. Appropriate timeout was then performed and confirmed by all operative team members present. After careful positioning, he is right anterior chest wall was then sterilely prepped and draped. 1% lidocaine was infiltrated in the mid clavicular line over the second intercostal space. A #11 scalpel blade was used to incise the skin. Next, a trocar 13 [place] thoracic vent was inserted through the incision and then by direct firm and controlled pressure into the right pleural space where the vent was advanced over the trocar as it was removed. Red button indicator confirmed intrathoracic placement with variations with respirations. The vent was secured to the skin with adhesive tabs and also with 2-0 silk suture. The vent was then connected to Pleur-evac suction where further air was evacuated. Following this, no further air leak was identified. He was then awakened from conscious sedation. Vital signs remained stable throughout the procedure. Dressings were secured. Breath sounds are now much improved. Chest x-ray is pending. Mr. Villareal was then returned to the ICU in stable condition.
--- NOTE | 2023-03-26 08:12 | XRR_ITS ---
PROCEDURE INFORMATION: Exam: XR Chest Exam date and time: 03/26/2023 7:21 AM Age: 67 years old Clinical indication: Device placement; Other: Thoracic vent placement TECHNIQUE: Imaging protocol: Radiologic exam of the chest. Views: 1 view. COMPARISON: CR (CHEST, ) 03/26/2023 4:28 AM FINDINGS: Tubes, catheters and devices: New right-sided chest tube noted in place. Persistent right sided pneumothorax. Lungs: Minimal left basilar atelectasis. Pleural spaces: See Tubes, catheters and devices finding. Heart/Mediastinum: The cardiomediastinal silhouette is within normal limits. Bones/joints: Unremarkable. XR/XR chest 1V portable [id number] IMPRESSION: New right-sided chest tube noted in place. Persistent right sided pneumothorax.
--- NOTE | 2023-03-26 08:45 | PC.NURSE ---
Back from OR, Dr. Thakkar at bedside, plan to ambulate pt today, possible D/C later today
[2023-03-26] MEDS: amiodarone 200 mg Tablet 400 MG PO (08:53)
[2023-03-26] MEDS: pantoprazole DR 40 mg Tablet PO (08:53)
[2023-03-26] MEDS: enoxaparin 40 mg/0.4 mL Syringe SUBCUT (10:06)
[2023-03-26] MEDS: docusate sodium 100 mg Capsule PO (10:10)
--- NOTE | 2023-03-26 10:27 | PC.SOCIAL ---
IMM Update pg 2 of IMM updated and reviewed w/ patient. Copy provided and Copy in chart dated, and initialed.
--- NOTE | 2023-03-26 13:43 | P.DS_ITS ---
Discharge Providers Date of Admission: 03/19/23 16:34 Date of Discharge: March 26, 2023 Attending Provider at Admission: Kamran Deal MD Attending Provider at Discharge: Kamran Deal MD Primary Care Provider: Fernando Medina MD Diagnoses at Discharge Discharge Diagnosis (1) Status post lobectomy of lung: Details from hospital stay: Mr. Villareal is a 67-year-old gentleman with a long history of tobacco use with previously biopsy-proven non-small cell carcinoma consistent with primary lung adenocarcinoma. He also has a history of melanoma in situ removed from his back as well as nephrectomy of the left renal mass which revealed clear-cell renal carcinoma grade 2. Colonoscopy of January 16 of this year showed a pediculated polyp in the rectum which returned large tubular adenoma with no high-grade dysplasia. A hard palate biopsy performed October 2021 was reported as benign and did not evaluation the right upper lobe lung lesion was identified. He was also evaluated by Dr. Calvo from oncology service on February 19. After careful preop evaluation and consideration, Mr. Villareal wish to proceed with surgery. On March 19 he underwent right upper ectomy through a muscle- sparing right thoracotomy. Postoperative, he is convalesced in the ICU where he is done very well with good pain control with use of epidural catheter along with IV and oral analgesics. He has maintained a small air leak through his hospital stay which has modestly improved but is still present nearly week after surgery. I have elected to place a 13 [place] thoracic vent earlier today and remove his remaining chest tube. He is ambulating the hallways without difficulty. O2 saturation is appropriate on room air at rest and with ambulation. Thoracotomy incision appears to be healing well with no for infection. He is tolerating a diet well. Postop discomfort is under good control with oral analgesics. Home health services have been arranged. He has been evaluated postoperatively by Dr. Jones as well. He will be discharged home today with scheduled follow-up in my clinic in 2 days with chest x-ray. Home oxygen evaluation prior to discharge reveals no need for supplemental oxygen at this time. Thoracic vent will remain in place in the early postop period and discharge, he is in stable condition. He has been strongly encouraged to continue frequent use of his incentive spirometer. He has been quite compliant in the hospital. Status: Acute Reason for Visit Reason for Visit: 76130 C34.11 Physical Exam HENMT: COMMON NORMALS: normocephalic and atraumatic HEAD & SCALP: normocephalic and atraumatic Neck/C-Spine: COMMON NORMALS: full ROM and no lymphadenopathy Chest: OTHER: Chest wall is stable. Thoracotomy incision is well approximated without drainage or periwound erythema. No chest wall subcutaneous emphysema Resp: OTHER: Mildly decreased breath sounds in the right apex and mid lung field consistent with lobectomy and associated volume loss as well as known small apical pneumothorax. There is no air leak appreciated on the thoracic vent off of suction and the indicator is tidling, consistent with appropriate placement in the intrapleural cavity Cardio: COMMON NORMALS: regular rhythm, S1 normal heart sound present, No murmurs present (Cardio) and No rub (Cardio) RHYTHM: regular rhythm HEART SOUNDS: S1 normal heart sound present GI: COMMON NORMALS: Normal to inspection, nondistended, normoactive bowel sounds present Extremity: COMMON NORMALS: no clubbing, cyanosis or edema Urinary Catheter Management: [place]: Cath Placed During This Visit: yes Reason for Continuing Indwelling Catheter: Accurate Measurement of Urinary Output in Critically Ill Patients Urinary Catheter Date of Insertion: 03/19/23 Urinary Catheter Time of Insertion: 11:50 Discharge Data Studies Completed and Pending Completed Studies During Hospitalization Category Date Time Status CXRP [XR chest 1V portable [id number]] Routine Exams 03/26/23 08:12 Completed XR chest 1V portable [id number] Routine Exams 03/20/23 06:00 Completed XR chest 1V portable [id number] Routine Exams 03/21/23 06:00 Completed XR chest 1V portable [id number] Routine Exams 03/22/23 06:00 Completed XR chest 1V portable [id number] Routine Exams 03/23/23 06:00 Completed XR chest 1V portable [id number] Routine Exams 03/24/23 06:00 Completed XR chest 1V portable [id number] Routine Exams 03/25/23 06:00 Completed XR chest 1V portable [id number] Routine Exams 03/26/23 06:00 Completed Pathology: Surgical [PTH] Routine Pth 03/19/23 15:25 Completed Pending at discharge Category Date Time Status Leukocyte Reduced RBC Routine Lab 03/14/23 10:44 Results Type and Screen - Cardiac Routine Lab 03/14/23 10:44 Results Type and Screen Routine Lab 03/14/23 10:23 Uncollected Radiology Impressions Chest X-Ray 03/26/23 08:12 IMPRESSION: New right-sided chest tube noted in place. Persistent right sided pneumothorax. Laboratory Results WBC 8.0 10^3/uL (4.0-10.0) 03/24/23 02: RBC 4.69 10^6/uL (4.1-5.3) 03/24/23 02:22 Hgb 13.7 g/dL (11.7-16.6) 03/24/23 02:22 Hct 42.4 % (42.0-52.0) 03/24/23 02:22 MCV 90.4 fl (80-94) 03/24/23 02:22 MCH 29.2 pg (28.0-34.0) 03/24/23 02: MCHC 32.3 g/dL (30.0-36.0) 03/24/23 02: RDW 13.2 % (12.1-15.1) 03/24/23 02:22 Plt Count 225 10^3/cmm (130-400) 03/24/23 02:22 MPV 10.1 fL (7.4-10.4) 03/24/23 02: Neut % (Auto) 66.4 % 03/24/23 02:22 Lymph % (Auto) 18.7 % 03/24/23 02:22 Blair % (Auto) 9.0 % 03/24/23 02: Eos % (Auto) 4.5 % 03/24/23 02:22 Baso % (Auto) 1.0 % 03/24/23 02:22 Neut # (Auto) 5.35 10^3/uL (1.8-7.7) 03/24/23 02:22 Lymph # (Auto) 1.5 10^3/uL (0.8-4.8) 03/24/23 02:22 Blair # (Auto) 0.7 10^3/uL (0.2-0.9) 03/24/23 02: Eos # (Auto) 0.4 10^3/uL (0.0-0.8) 03/24/23 02:22 Baso # (Auto) 0.1 10^3/uL (0.0-0.1) 03/24/23 02:22 Nucleated RBC % (auto) 0 % 03/24/23 02:22 Nucleated RBCs # 0.0 /100WBC 03/24/23 02:22 PT 12.70 SECONDS (12.1-14.9) 03/14/23 10:44 INR 0.92 (0.8-1.2) 03/14/23 10:44 Sodium 139 mmol/L (136-145) 03/24/23 02:22 Potassium 3.8 mmol/L (3.5-5.1) 03/24/23 02:22 Chloride 104 mmol/L (98-107) 03/24/23 02:22 Carbon Dioxide 27 mmol/L (22-29) 03/24/23 02:22 Anion Gap 11.8 (5-19) 03/24/23 02:22 BUN 20 mg/dL (8-23) 03/24/23 02:22 Creatinine 1.1 mg/dL (0.7-1.2) 03/24/23 02:22 GFR Calculation 66.6 mL/min (90-130) L 03/24/23 02:22 Glucose 93 mg/dL (65-115) 03/24/23 02:22 Calculated Osmolality 290 mOsm/kg (285-295) 03/24/23 02:22 Calcium 8.3 mg/dL (8.5-10.5) L 03/24/23 02:22 Urine Color Yellow (Yellow) 03/14/23 11:05 Urine Appearance Clear (CLEAR) 03/14/23 11:05 Urine pH 5 (5-7) 03/14/23 11:05 Ur Specific [place] 1.015 (1.005-1.030) 03/14/23 11:05 Urine Protein Neg (Negative) 03/14/23 11:05 Urine Glucose (UA) Norm (Normal) 03/14/23 11:05 Urine Ketones Negative (Negative) 03/14/23 11:05 Urine Blood 3+ (Negative) H 03/14/23 11:05 Urine Nitrate Negative (Negative) 03/14/23 11:05 Urine Bilirubin Neg (Negative) 03/14/23 11:05 Urine Urobilinogen Neg mg/dL (Negative) 03/14/23 11:05 Ur Leukocyte Esterase Negative (Negative) 03/14/23 11:05 Urine RBC 5-10 /hpf (0-2) H 03/14/23 11:05 Urine WBC Rare /hpf (0-5) 03/14/23 11:05 Ur Squamous Epith Cells Rare /hpf (0-5) 03/14/23 11:05 Amorphous Sediment Not Reportable 03/14/23 11:05 Urine Bacteria None /hpf (NONE) 03/14/23 11:05 Blood Type A Positive 03/14/23 10:44 Rho(D) Type Positive 03/14/23 10:44 Antibody Screen Negative 03/14/23 10:44 Crossmatch See Detail 03/14/23 10:44 Vitals Last Vital Signs Temp 98.5 F 03/25/23 19:00 Pulse 95 03/26/23 12:00 Resp 23 H 03/26/23 12:00 BP 109/69 03/26/23 12:00 Pulse Ox 95 03/26/23 11:31 O2 Del Method Room Air 03/26/23 10:14 O2 Flow Rate 2 03/25/23 11:00 Discharge Plan Discharge Patient Disposition: Home Health Service Condition: Good Prescriptions: New oxycodone-acetaminophen 5-325 mg Tablet 1 tab PO Q6H PRN (Reason: Moderate Pain) Qty: 24 0RF Continued albuterol sulfate 90 mcg/actuation HFA aerosol inhaler 2 puff inhalation Q6H PRN (Reason: shortness of breath or wheezing) Qty: 8.5 3RF Discharge Orders: Discharge Order (Routine); Ordered 03/26/23 Ordered By: Kamran Deal Referrals: [facility] ([facility]) [Outside] Kamran Deal MD [Physician] - 03/28/23 11:30 am Discharge Diet: Usual diet Discharge Activity: Limit activity as instructed Patient Instructions: Opioid Safety Activity Restrictions/Additional Instructions: May not shower until thoracic vent is removed. Sponge bath only. No heavy lifting with right arm greater than 5 pounds Use incentive spirometer frequently Report any substantial increase in chest discomfort, fever, productive cough, or shortness of breath Discharge Attestations Time Spent in Discharge Care*: less than 30 min Specific Discharge Activities: educating patient, educating and/or supporting family/caregiver, discussing with case management manager/social workers/dc planners, documenting/other paperwork and evaluating patient/reviewing data Status at Discharge: Cognitive status at discharge: cognitively intact , Behavioral status at discharge: cooperative , Functional status at discharge: independent ambulation , Overall status at discharge: patient is progressing back to baseline Quality Metrics Clinical Quality Measures [ No reported AMI, CVA or VTE this stay] Coding Level of Care Code Acute Code for Chg Fwd Diagnoses Status post lobectomy of lung Z90.2
--- NOTE | 2023-03-26 14:54 | ANE.PACU2 ---
Inpatient post-anesthesia follow up: Airway intact: Yes Vital signs: Temperature 98.5 F Pulse Rate 84 Respiratory Rate 18 Blood Pressure 109/69 Pulse Oximetry [6 Minute 94 Exercise Test on R oom Air] Pulse Oximetry [Ro om Air at 96 Rest] Pulse Oximetry 95 Oxygen Delivery Me thod Room Air Oxygen Flow Rate 2 Fraction of Inspir ed Oxygen Hydration adequate: Yes Nausea and vomiting: No Pain level: 2 Mental status: Baseline
== END 2023-03-26 14:53 | disposition home health service (06) | DRG 164 ==
LOC: ICU 16:34
PROVIDERS: Admitting Provider Thoracic Surgery (Cardiothoracic Vascular Surgery); PCP Family Medicine; Visit Provider Thoracic Surgery (Cardiothoracic Vascular Surgery)
PROC: 0BT Respiratory System, Resection (ICD-10-PCS; CPT 32480; principal; 2023-03-19 11:45)
PROC: 0B9P30Z Drainage of Left Pleura with Drainage Device, Percutaneous Approach (ICD-10-PCS; CPT 32551; principal; 2023-03-26 07:00)
DX: C34.11 Malignant neoplasm of upper lobe, right bronchus or lung (principal); I97.191 Other postprocedural cardiac functional disturbances following other surgery; J95.812 Postprocedural air leak; J95.811 Postprocedural pneumothorax; F17.200 Nicotine dependence, unspecified, uncomplicated; Z85.820 Personal history of malignant melanoma of skin; Z85.528 Personal history of other malignant neoplasm of kidney; Z90.5 Acquired absence of kidney; Z79.51 Long term (current) use of inhaled steroids; T81.82XA Emphysema (subcutaneous) resulting from a procedure, initial encounter; Y83.9 Surgical procedure, unspecified as the cause of abnormal reaction of the patient, or of later complication, without mention of misadventure at the time of the procedure
CPT/HCPCS: 36415; 51702; 71045; 80048; 81001; 85025; 85610; 86850; 86900; 86920; 88305; 88309; 88342; 93005; 94664; 94760; 96372; 96376; 97116; 97161; 97530; J0690; J0697; J1100; J1170; J1650; J2370; J2405; J2704; J2795; J3010; J3490; J7030; J7120; P9045

== ENCOUNTER 2023-03-28 08:24 | Outpatient (CLI) | payer MEDICARE, SELFPAY ==
--- NOTE | 2023-03-28 08:35 | XR_ITS ---
WS: [id number] PA and lateral chest, 03/28/2023 Clinical Data: lung cancer Comparison: Portable chest, 03/26/2023 Findings: The right pneumothorax has worsened. There is still a small apical right chest tube. There is a small right effusion. Left lung is fully expanded. No nodules, masses or effusions are seen. The heart size remains the same. XR/XR chest 2V* [id number] Impression: 1. Increase in right pneumothorax with development of small right effusion. 2. No change in position of small apical right chest tube.
== END 2023-03-28 08:25 | disposition home or self-care (01) ==
PROVIDERS: PCP Family Medicine; Visit Provider Thoracic Surgery (Cardiothoracic Vascular Surgery)
DX: C34.11 Malignant neoplasm of upper lobe, right bronchus or lung (principal); J90 Pleural effusion, not elsewhere classified
CPT/HCPCS: 71046; 99024

== ENCOUNTER 2023-04-02 05:40 | Day surgery (SDC) | payer MEDICARE, SELFPAY ==
[2023-03-29 12:27] VITALS: BMI 25.0
[2023-04-02 06:07] VITALS: BP 138/87; PULSE 79; RESP 17; TEMP 36.8; O2SAT 95
--- NOTE | 2023-04-02 06:16 | XR_ITS ---
WS: [email or web address] Exam: XR chest 1V portable [id number] Date/Time of Exam: 04/02/2023 6:17 AM Reason For Exam: pneumothorax Comparison 03/28/2023. Improving right upper lobe pneumothorax noted estimated at about 10% on today's study. Small caliber right-sided thoracostomy tube in place unchanged in location. Trace right basal pleural effusion. The left lung is hyperinflated and clear. Normal cardiomediastinal silhouette. Bony structures are intac t. XR/XR chest 1V portable [id number] IMPRESSION: 1. Improved right upper lobe pneumothorax now estimated at about 10%. Decreasin g right pleural effusion. 2. Small bore right chest tube unchanged in location.
--- NOTE | 2023-04-02 06:44 | SUR.PREOP ---
Patient had chest x-ray ordered prior to surgery. After Dr. Deal reviewing surgery was cancelled and is no longer needed at this time. and in room changing dressing. Once completed patient will be discharged home with a follow up to the office in office this week.
== END 2023-04-02 06:55 | disposition home or self-care (01) ==
LOC: OR 05:41
PROVIDERS: PCP Family Medicine; Visit Provider Thoracic Surgery (Cardiothoracic Vascular Surgery)
PROC: 0B9P30Z Drainage of Left Pleura with Drainage Device, Percutaneous Approach (ICD-10-PCS; CPT 32551; principal; 2023-04-02 07:00)
DX: J93.9 Pneumothorax, unspecified (principal); Z53.9 Procedure and treatment not carried out, unspecified reason; Z01.818 Encounter for other preprocedural examination
CPT/HCPCS: 71045

== ENCOUNTER 2023-04-04 10:07 | Outpatient (CLI) | payer MEDICARE, SELFPAY ==
--- NOTE | 2023-04-04 10:26 | XR_ITS ---
WS: [id number] Exam: XR chest 2V* [id number] Date/Time of Exam: 04/04/2023 10:35 AM Reason For Exam: pneumothroax Comparison 04/02/2023. Smallbore right chest tube has been removed. There is about 10% Pneumothorax of the right upper lobe. Mild subcutaneous emphysema along the right shoulder. The left lung is clear and fully expanded. Heart size is normal. The mediastinum is normal in contour. Trace right-sided pleural effusion. XR/XR chest 2V* [id number] IMPRESSION: 1. Right chest tube has been removed. About 10% pneumothorax of the right upper lobe and subcutaneous emphysema along the right shoulder.
== END 2023-04-04 10:08 | disposition home or self-care (01) ==
LOC: RAD 10:10
PROVIDERS: PCP Family Medicine; Visit Provider Thoracic Surgery (Cardiothoracic Vascular Surgery)
DX: J95.811 Postprocedural pneumothorax (principal); Z48.812 Encounter for surgical aftercare following surgery on the circulatory system; C34.90 Malignant neoplasm of unspecified part of unspecified bronchus or lung
CPT/HCPCS: 71046; 99024

== ENCOUNTER 2023-04-16 10:53 | Oncology outpatient (recurring) (ONCR) | payer MEDICARE, SELFPAY ==
[2023-04-16 12:29] LABS: Bilirubin Urine Neg (Negative); Blood Urine 3+ (Negative); Glucose Urine UA Norm (Normal); Ketones Urine Negative (Negative); Leukocyte Esterase Urine Negative (Negative); Nitrate Urine Negative (Negative); Protein Urine Neg (Negative); Specific Gravity, Urine 1.015 (1.005-1.030); Urine Appearance Clear (CLEAR); Urine Color Yellow (Yellow); Urobilinogen Urine Norm (Negative); pH Urine 5 (5-7)
[2023-04-16 12:30] LABS: Add Urine Culture? No; Add Urine Microscopic? YES; Bacteria Urine TRACE /hpf; Mucus Urine TRACE /hpf; Squamous Epithelial Cell Urine RARE /hpf (0-5); WBC Urine RARE /hpf (0-5)
== END 2023-05-03 23:59 | disposition home or self-care (01) ==
PROVIDERS: PCP Family Medicine; Visit Provider Internal Medicine Medical Oncology
DX: C34.11 Malignant neoplasm of upper lobe, right bronchus or lung (principal); R30.0 Dysuria; J44.9 Chronic obstructive pulmonary disease, unspecified; Z87.891 Personal history of nicotine dependence; Z85.528 Personal history of other malignant neoplasm of kidney
CPT/HCPCS: 81001; 99215

== ENCOUNTER → 2023-04-18 09:12 | Outpatient (BNVA) | payer MEDICARE, SELFPAY | PROVIDERS: PCP Family Medicine; Visit Provider Thoracic Surgery (Cardiothoracic Vascular Surgery) | DX: Z90.2 Acquired absence of lung [part of] (principal) | CPT/HCPCS: 99024 ==

== ENCOUNTER 2023-05-09 12:21 | Outpatient (CLI) | payer MEDICARE, SELFPAY ==
--- NOTE | 2023-05-09 12:31 | XRR_ITS ---
PROCEDURE INFORMATION: Exam: XR Chest Exam date and time: 05/09/2023 12:33 PM Age: 67 years old Clinical indication: Cough; Prior surgery; Surgery date: 6+ months; Surgery type: Lumpectomy; Patient HX: HX of kidney cancer TECHNIQUE: Imaging protocol: Radiologic exam of the chest. Views: 2 views. COMPARISON: 1. CR XR chest 2V* [id number] 04/04/2023 10:36 AM 2. CR XR chest 1V portable [id number] 04/02/2023 5:22 AM 3. CR XR chest 2V* [id number] 03/28/2023 8:39 AM FINDINGS: Lungs: No consolidation. Mild linear scarring versus atelectasis in the right lung. Stable left lower lung zone nodule, possibly nipple shadow. Pleural spaces: No pneumothorax. Small right pleural effusion intervally stable. Heart/Mediastinum: No cardiomegaly. Stable postsurgical changes with surgical material along the right mediastinal margin. Bones/joints: No acute fracture. Degenerative changes along the spine. Soft tissues: Resolved right chest subcutaneous emphysema. XR/XR chest 2V* [id number] IMPRESSION: 1. Resolved right pneumothorax and subcutaneous emphysema. 2. Similar small right pleural effusion.
== END 2023-05-09 12:22 | disposition home or self-care (01) ==
LOC: RAD 12:24
PROVIDERS: PCP Family Medicine; Visit Provider Family Medicine
DX: J44.9 Chronic obstructive pulmonary disease, unspecified (principal); J90 Pleural effusion, not elsewhere classified; R05.9 Cough, unspecified; Z98.890 Other specified postprocedural states; Z85.528 Personal history of other malignant neoplasm of kidney
CPT/HCPCS: 71046

== ENCOUNTER → 2023-07-01 12:40 | Outpatient (BNVA) | payer MEDICARE, SELFPAY | PROVIDERS: PCP Family Medicine; Visit Provider Internal Medicine Pulmonary Disease | DX: C34.11 Malignant neoplasm of upper lobe, right bronchus or lung (principal); D03.59 Melanoma in situ of other part of trunk; C64.9 Malignant neoplasm of unspecified kidney, except renal pelvis; J43.9 Emphysema, unspecified; F17.210 Nicotine dependence, cigarettes, uncomplicated | CPT/HCPCS: 99214 ==

== ENCOUNTER 2023-07-15 08:18 | Outpatient (CLI) | payer MEDICARE, SELFPAY ==
--- NOTE | 2023-07-15 09:30 | CT_ITS ---
WS: [id number] CT CHEST, ABDOMEN AND PELVIS WITH CONTRAST HISTORY: lung cancer follow up TECHNIQUE: Contiguous 5 mm axial imaging performed through the chest, abdomen and pelvis with IV cont rast, oral contrast has been provided. Coronal and sagittal reformats chest. Coronal and sagittal ref ormats through the abdomen and pelvis. All CT scans at [facility] use at least one of these d ose optimization techniques: automated exposure control; mA and/or kV adjustment per patient size (in cludes targeted exams where dose is matched to clinical indication); or iterative reconstruction. CONTRAST: Omnipaque 350; 100 mL IV. DLP: 865.83 mGy.cm COMPARISON: 09/26/2022, 09/06/2022, PET/CT 11/10/[address]: Prior RIGHT upper lobectomy. Spiculated nodule at the RIGHT apex and the larger nodule in t he inferior RIGHT upper lobe have been surgically resected. New patchy opacifications and are scatter ed throughout the RIGHT middle lobe. [facility] Lungs are otherwise hyperinflated. Multilobulated opacification in the superior segment LEFT l ower lobe measures 2.3 x 3.3 cm and has not improved since the prior study. This is a mixed opacifica tion mass. Some of the consolidated nodules appear increased in size. Suspicious for progression. Add itional nodule in the anterior LEFT lower lobe at 0.7 cm is unchanged. No pleural effusions. Very mildly prominent lymphoid tissue at the RIGHT hilum. Heart size is normal. Mild atherosclerosis aorta. Normal pulmonary artery. Small hiatal hernia. Abdomen CT: Normal size liver. There are a few scattered low-attenuation nodules consistent with he patic cyst. There are a few that are too small to characterize. Normal portal vein. No bile duct dila tation. Normal gallbladder. Negative spleen. Negative pancreas. Very mild thickening of the LEFT adre nal gland is stable. Normal RIGHT adrenal gland. Normal size RIGHT kidney. There are several cortical hypodensities which are too small to characterize. LEFT kidney is surgically absent. Mild atheroscle rosis aorta. Stomach is not distended. No small bowel obstruction. Normal appendix. Numerous diverticula in the di stal colon. Colon is tortuous from longstanding constipation. No acute diverticulitis. No free fluid or free air. No adenopathy. Pelvic CT: No free fluid. Urinary bladder is minimally distended. Prostate gland calcifications centr ally. No osseous destructive process. Mild anterior wedging of T7. IMPRESSION: 1. Prior RIGHT upper lobectomy since the prior examination. 2. New scattered opacifications throughout the RIGHT middle lobe. Postinflammatory is likely. Short-t erm follow-up will be necessary to exclude metastatic disease. Chest CT with IV contrast recommended in 3 months. 3. Multilobulated opacification LEFT lower lobe and the smaller nodule in the LEFT lower lobe have no t definitively changed. There may be slightly greater opacification in the lobulated opacification. T his will need to be further evaluated. Indeterminate on the PET/CT. Chest CT with IV contrast recomme nded in 3 months. 4. No metastatic lesions within the adrenal glands or liver. 5. Prior LEFT nephrectomy. 6. Constipation with sigmoid diverticular disease. No acute diverticulitis. 7. Very mildly prominent lymphoid tissue at the RIGHT hilum. No enlarged lymph nodes. This can also b e reevaluated in [address] with IV contrast.
[2023-07-15] MEDS: iohexol 350 mg/mL 500 mL Btl (per mL) PO (09:36)
[2023-07-15 09:45] LABS: Blood Urea Nitrogen 21 mg/dL (8-23); Glomerular Filtration Rate 54.9 mL/min (90-130)
[2023-07-15] MEDS: iohexol 350 mg/mL 500 mL Btl (per mL) IV (09:51)
== END 2023-07-15 08:19 | disposition home or self-care (01) ==
LOC: RAD 08:21
PROVIDERS: PCP Family Medicine; Visit Provider Internal Medicine Medical Oncology
DX: C34.11 Malignant neoplasm of upper lobe, right bronchus or lung (principal); C64.9 Malignant neoplasm of unspecified kidney, except renal pelvis; Z90.2 Acquired absence of lung [part of]
CPT/HCPCS: 71260; 74177; 82565; 84520; Q9967

== ENCOUNTER 2023-07-23 09:52 | Outpatient (CLI) | payer MEDICARE, SELFPAY ==
[2023-07-23 10:14] VITALS: PULSE 80; RESP 18; O2SAT 96
[2023-07-23] MEDS: albuterol 2.5 mg/3 mL Neb INHALATION (10:16)
[2023-07-23 10:18] VITALS: PULSE 82
== END 2023-07-23 09:53 | disposition home or self-care (01) ==
LOC: RT 09:53
PROVIDERS: PCP Family Medicine; Visit Provider Internal Medicine Pulmonary Disease
DX: R06.02 Shortness of breath (principal)
CPT/HCPCS: 94060; 94618; 94729

== ENCOUNTER → 2023-07-31 15:34 | Outpatient (BNVA) | payer MEDICARE, SELFPAY | PROVIDERS: PCP Family Medicine; Visit Provider Dermatology | DX: L81.4 Other melanin hyperpigmentation (principal); D36.11 Benign neoplasm of peripheral nerves and autonomic nervous system of face, head, and neck; L82.1 Other seborrheic keratosis; L72.11 Pilar cyst; D22.39 Melanocytic nevi of other parts of face; Z08 Encounter for follow-up examination after completed treatment for malignant neoplasm; Z85.820 Personal history of malignant melanoma of skin | CPT/HCPCS: 99213 ==

== ENCOUNTER 2023-08-07 12:54 | Oncology outpatient (recurring) (ONCR) | payer MEDICARE, SELFPAY ==
[2023-08-07 13:16] VITALS: BP 132/84; PULSE 73; RESP 16; TEMP 36.7; O2SAT 100
[2023-08-07 13:33] LABS: Basophils # 0.1 10^3/uL (0.0-0.1); Basophils % 1.1 %; Eosinophils # 0.3 10^3/uL (0.0-0.8); Eosinophils % 2.6 %; Hematocrit 49.2 % (37-53); Lymphocytes % 20.9 %; Mean Corpuscular HGB Conc 32.7 g/dL (30-55); Mean Corpuscular Hemoglobin 28.9 pg (27-33); Mean Corpuscular Volume 88.2 fl (82-101); Mean Platelet Volume 9.2 fL (7.4-10.4); Monocytes # 0.6 10^3/uL (0.2-0.9); Monocytes % 5.9 %; Neutrophils # 6.74 10^3/uL (1.8-7.7); Neutrophils % 69.1 %; Nucleated Red Blood Cells % 0 %; Platelet Count 245 10^3/cmm (157-399); Red Blood Count 5.58 10^6/uL (3.85-5.65); Red Cell Distribution Width 13.7 % (12.1-15.1); White Blood Count 9.76 10^3/uL (3.29-11.43)
[2023-08-07 13:49] LABS: Alanine Aminotransferase 15 U/L (0-41); Albumin Level 4.4 g/dL (3.5-5.2); Alkaline Phosphatase 89 U/L (40-130); Anion Gap 12.6 (5-19); Aspartate Amino Transferase 15 U/L (0-40); Blood Urea Nitrogen 19 mg/dL (8-23); Calcium 9.3 mg/dL (8.5-10.5); Carbon Dioxide 29 mmol/L (22-29); Chloride 103 mmol/L (98-107); Globulin 2.8 g/dL (1.3-4.6); Glomerular Filtration Rate 60.2 mL/min (90-130); Glucose 84 mg/dL (65-115); Osmolality Calculated 291 mOsm/kg (285-295); Potassium 4.6 mmol/L (3.5-5.1); Sodium 140 mmol/L (136-145); Total Bilirubin 0.3 mg/dL (0.15-1.2); Total Protein 7.2 g/dL (6.6-8.7)
== END 2023-09-03 23:59 | disposition home or self-care (01) ==
PROVIDERS: Nurse Practitioner Family; PCP Family Medicine; Visit Provider Internal Medicine Medical Oncology
DX: C34.11 Malignant neoplasm of upper lobe, right bronchus or lung (principal); R30.0 Dysuria; R35.0 Frequency of micturition; Z79.899 Other long term (current) drug therapy
CPT/HCPCS: 36415; 80053; 85025; 99213

== ENCOUNTER 2023-10-15 10:22 | Outpatient (CLI) | payer MEDICARE, SELFPAY ==
--- NOTE | 2023-10-15 11:00 | CT_ITS ---
WS: [id number] CT CHEST TECHNIQUE: Contrast enhanced CT of the chest with coronal and sagittal reformatted images. CLINICAL INFORMATION: 3 month follow up per last CT, lung ca COMPARISON: CT 07/15/2023 DLP: 380.[address] scans at [facility] use at least one of these dose optimization techniques: automated e xposure control; mA and/or kV adjustment per patient size (includes targeted exams where dose is matc hed to clinical indication); or iterative reconstruction. FINDINGS: Prior postoperative changes RIGHT upper lobectomy. Prior LEFT nephrectomy. Advanced chronic emphysema tous changes. Normal caliber thoracic aorta. Proximal main pulmonary arteries are normal. No mediasti nal or hilar lymphadenopathy. No axillary lymphadenopathy. Normal RIGHT adrenal gland. Small RIGHT renal cyst. Previously described tree-in-bud opacities in the RIGHT middle lobe have slightly improved compared to previous with some new areas of nodularity most likely inflammatory. No evidence of progression. Lobulated clustered nodules in the LEFT lower lobe appears stable to slightly improved compared to pr evious but persistent. Largest nodule measures 11 mm. Noncalcified nodule LEFT lower lobe laterally m easuring 8 mm appears unchanged. Recommend additional 3-month chest CT follow-up. IMPRESSION: 1. Previously described tree-in-bud opacities have improved slightly with some new areas of nodulari ty. This may be inflammatory but indeterminate. Recommend continued surveillance with 3-month chest C T follow-up. 2. Lobulated nodules in the LEFT lower lobe posteriorly appear stable to slightly improved compared to previous but persistent. Recommend 3-month chest CT follow-up. 3. Stable 8 mm nodule LEFT lower lobe laterally. 4. No other significant changes compared to previous. 5. Prior RIGHT upper lobectomy. 6. Prior LEFT nephrectomy. 7. No mediastinal or hilar lymphadenopathy.
[2023-10-15 11:36] LABS: Blood Urea Nitrogen 17 mg/dL (8-23)
[2023-10-15] MEDS: iohexol 350 mg/mL 500 mL Btl (per mL) IV (11:46)
== END 2023-10-15 10:23 | disposition home or self-care (01) ==
LOC: RAD 10:22
PROVIDERS: PCP Family Medicine; Visit Provider Internal Medicine Medical Oncology
DX: C34.11 Malignant neoplasm of upper lobe, right bronchus or lung (principal); R91.8 Other nonspecific abnormal finding of lung field; Z90.2 Acquired absence of lung [part of]; Z90.5 Acquired absence of kidney
CPT/HCPCS: 71260; 82565; 84520; Q9967

== ENCOUNTER 2023-10-30 13:00 | Oncology outpatient (recurring) (ONCR) | payer MEDICARE, SELFPAY ==
[2023-10-30 13:06] VITALS: BP 123/73; PULSE 73; RESP 16; TEMP 36.7; O2SAT 98
[2023-10-30 13:21] LABS: Basophils # 0.2 10^3/uL (0.0-0.1); Basophils % 1.5 %; Eosinophils # 0.5 10^3/uL (0.0-0.8); Eosinophils % 4.5 %; Hematocrit 49.2 % (37-53); Lymphocytes # 2.1 10^3/uL (0.8-4.8); Lymphocytes % 20.3 %; Mean Corpuscular HGB Conc 32.9 g/dL (30-55); Mean Corpuscular Hemoglobin 28.8 pg (27-33); Mean Corpuscular Volume 87.4 fl (82-101); Mean Platelet Volume 9.1 fL (7.4-10.4); Monocytes # 0.6 10^3/uL (0.2-0.9); Monocytes % 5.7 %; Neutrophils # 6.82 10^3/uL (1.8-7.7); Neutrophils % 67.6 %; Nucleated Red Blood Cells % 0 %; Platelet Count 294 10^3/cmm (157-399); Red Blood Count 5.63 10^6/uL (3.85-5.65); Red Cell Distribution Width 13.6 % (12.1-15.1); White Blood Count 10.08 10^3/uL (3.29-11.43)
[2023-10-30 13:39] LABS: Alanine Aminotransferase 13 U/L (0-41); Albumin Level 4.4 g/dL (3.5-5.2); Alkaline Phosphatase 94 U/L (40-130); Anion Gap 11.4 (5-19); Aspartate Amino Transferase 16 U/L (0-40); Blood Urea Nitrogen 20 mg/dL (8-23); Carbon Dioxide 29 mmol/L (22-29); Chloride 102 mmol/L (98-107); Globulin 2.9 g/dL (1.3-4.6); Glucose 95 mg/dL (65-115); Osmolality Calculated 288 mOsm/kg (285-295); Potassium 4.4 mmol/L (3.5-5.1); Sodium 138 mmol/L (136-145); Total Bilirubin 0.2 mg/dL (0.15-1.2); Total Protein 7.3 g/dL (6.6-8.7)
== END 2023-11-03 23:59 | disposition home or self-care (01) ==
PROVIDERS: Nurse Practitioner Family; PCP Family Medicine; Visit Provider Internal Medicine Medical Oncology
DX: C34.11 Malignant neoplasm of upper lobe, right bronchus or lung (principal); R30.0 Dysuria; R35.0 Frequency of micturition; Z79.899 Other long term (current) drug therapy
CPT/HCPCS: 36415; 80053; 85025; 99214

== ENCOUNTER → 2023-11-12 14:05 | Outpatient (BNVA) | payer MEDICARE, SELFPAY | PROVIDERS: PCP Family Medicine; Visit Provider Internal Medicine Pulmonary Disease | DX: C34.11 Malignant neoplasm of upper lobe, right bronchus or lung (principal); D03.59 Melanoma in situ of other part of trunk; Z90.2 Acquired absence of lung [part of]; Z90.5 Acquired absence of kidney; Z85.53 Personal history of malignant neoplasm of renal pelvis; Z87.891 Personal history of nicotine dependence; J43.9 Emphysema, unspecified | CPT/HCPCS: 99214 ==

== ENCOUNTER 2024-01-29 12:04 | Outpatient (CLI) | payer MEDICARE, SELFPAY ==
--- NOTE | 2024-01-29 13:00 | CTR_ITS ---
PROCEDURE INFORMATION: Exam: CT Chest With Contrast; Diagnostic Exam date and time: 01/29/2024 1:13 PM Age: 68 years old Clinical indication: Condition or disease; Kidney, left; Lung condition and disease; Cancer of the lung; Right; Unspecified; Primary cancer: Lung, skin, kidney, mouth; Prior surgery; Surgery date: Post-operative (0-2 days); Surgery type: Left kidney, RT lung; Additional info: Restaging, prior to office visit with oncology TECHNIQUE: Imaging protocol: Diagnostic computed tomography of the chest with contrast. Radiation optimization: All CT scans at this facility use at least one of these dose optimization techniques: automated exposure control; mA and/or kV adjustment per patient size (includes targeted exams where dose is matched to clinical indication); or iterative reconstruction. Contrast material: OMNI 350; Contrast volume: 100 ml; Contrast route: INTRAVENOUS (IV); COMPARISON: CT chest w con* [id number] 10/15/2023 11:40 AM RADIATION DOSE METRICS: Total DLP (mGy-cm): 844.46 FINDINGS: Thyroid: Grossly unremarkable. Lungs: Postsurgical changes compatible with prior right upper lobectomy. There has been interval enlargement of the superior segment left lower lobe pulmonary nodules, the largest of these measuring approximately 2.2 cm (image 25 of series 9 in comparison to image 20 of series 9 on prior exam). There are adjacent subcentimeter nodules that have slightly enlarged as well. Trace-small right-sided pleural effusion, not significantly changed since prior. There is ground-glass and nodular opacities in the right middle lobe, not significantly changed since prior exam from October 15, 2023. 8-9 mm left lower lobe pulmonary nodule peripherally is not significantly changed since prior (image 50 of series 4 of the current exam compared to image 51 of series 3 on the prior exam). No focal consolidation. No pneumothorax. Heart: No cardiomegaly. No pericardial effusion. Mediastinal space: Trachea and central airways are grossly patent. No evidence of mediastinal mass or hematoma. Lymph nodes: No evidence of mediastinal or hilar adenopathy. Vasculature: No aneurysmal dilatation of the thoracic aorta. No evidence of dissection. Though this study is not tailored to evaluate for pulmonary thromboembolism, there is no evidence of PE within limitations of respiratory motion. Bones/joints: No evidence of acute fracture or aggressive osseous lesion. Soft tissues: No fluid collection or hematoma in the superficial soft tissues. PROCEDURE INFORMATION: Exam: CT Abdomen And Pelvis With Contrast Exam date and time: 01/29/2024 1:13 PM Age: 68 years old Clinical indication: Condition or disease; Kidney, left; Lung condition and disease; Cancer of the lung; Right; Unspecified; Primary cancer: Lung, skin, kidney, mouth; Prior surgery; Surgery date: Post-operative (0-2 days); Surgery type: Left kidney, RT lung; Additional info: Restaging, prior to office visit with oncology TECHNIQUE: Imaging protocol: Computed tomography of the abdomen and pelvis with contrast. Radiation optimization: All CT scans at this facility use at least one of these dose optimization techniques: automated exposure control; mA and/or kV adjustment per patient size (includes targeted exams where dose is matched to clinical indication); or iterative reconstruction. Contrast material: OMNI 350; Contrast volume: 100 ml; Contrast route: INTRAVENOUS (IV); COMPARISON: CT chest abdpel w/*[id number] 07/15/2023 9:48 AM RADIATION DOSE METRICS: Total DLP (mGy-cm): 844.46 FINDINGS: Liver: No focal hepatic lesion. There are scattered hepatic cysts. Gallbladder and bile ducts: Unremarkable. No intra-hepatic or extra-hepatic biliary dilatation. Pancreas: Unremarkable. Spleen: Unremarkable. Adrenal glands: Unremarkable. Kidneys and ureters: Prior left-sided nephrectomy. There are simple appearing right-sided renal cysts for which dedicated imaging follow-up is not required. Otherwise no evidence of renal parenchymal abnormality. No hydronephrosis or ureteral stone. Stomach and bowel: Diverticulosis without evidence of acute diverticulitis. No bowel obstruction or perienteric inflammatory changes. Appendix: The appendix is not visualized, however there are no findings to suggest appendicitis. Intraperitoneal space: No evidence of free air or fluid collection. Vasculature: No aneurysmal dilatation or dissection of the abdominal aorta. The celiac trunk, SMA and JOANNE are grossly patent. No evidence of IVC thrombus. The portal vein, SMV and splenic veins are grossly patent. Lymph nodes: No adenopathy. Urinary bladder: Grossly unremarkable. Reproductive: Grossly unremarkable. Bones/joints: No evidence of acute fracture or aggressive osseous lesion. Moderate-severe multilevel facet arthrosis of the lumbar spine. Soft tissues: No evidence of fluid collection or hematoma in the superficial soft tissues. CT/CT chest abdpel w/*[id number] IMPRESSION: 1. Enlarging left lower lobe pulmonary nodule measuring up to 2.2 cm. Correlation with PET-CT is recommended. IMPRESSION: 1. No evidence of metastatic disease in the abdomen or pelvis.
[2024-01-29 13:12] LABS: Blood Urea Nitrogen 19 mg/dL (8-23); Glomerular Filtration Rate 66.4 mL/min (90-130)
[2024-01-29] MEDS: iohexol 350 mg/mL 500 mL Btl (per mL) IV (13:22)
[2024-01-29] MEDS: iohexol 350 mg/mL 500 mL Btl (per mL) PO (13:23)
== END 2024-01-29 12:05 | disposition home or self-care (01) ==
LOC: RAD 12:04
PROVIDERS: PCP Family Medicine; Visit Provider Internal Medicine Medical Oncology
DX: C34.11 Malignant neoplasm of upper lobe, right bronchus or lung (principal); C64.9 Malignant neoplasm of unspecified kidney, except renal pelvis
CPT/HCPCS: 71260; 74177; 82565; 84520; Q9967

== ENCOUNTER 2024-02-03 06:00 | Oncology outpatient (recurring) (ONCR) | payer MEDICARE, SELFPAY | END 2024-03-03 23:59 | disposition home or self-care (01) | LOC: ONCMED 03-23 09:13 | PROVIDERS: PCP Family Medicine; Visit Provider Internal Medicine Medical Oncology | DX: C34.11 Malignant neoplasm of upper lobe, right bronchus or lung (principal); R30.0 Dysuria; R35.0 Frequency of micturition; Z79.899 Other long term (current) drug therapy | CPT/HCPCS: 99214 ==

== ENCOUNTER → 2024-02-06 13:42 | Outpatient (BNVA) | payer MEDICARE, SELFPAY | PROVIDERS: PCP Family Medicine; Visit Provider Internal Medicine Pulmonary Disease | DX: R91.1 Solitary pulmonary nodule (principal); F17.200 Nicotine dependence, unspecified, uncomplicated; J44.9 Chronic obstructive pulmonary disease, unspecified; Z85.528 Personal history of other malignant neoplasm of kidney; Z85.820 Personal history of malignant melanoma of skin; Z85.118 Personal history of other malignant neoplasm of bronchus and lung | CPT/HCPCS: 99214 ==

== ENCOUNTER 2024-02-11 05:56 | Day surgery (SDC) | payer MEDICARE, SELFPAY ==
[2024-02-11 06:12] VITALS: BP 140/89; PULSE 84; RESP 18; TEMP 36.6; O2SAT 96; BMI 25.9
--- NOTE | 2024-02-11 06:34 | ECG_ITS ---
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 Measurements Intervals [place] Rate: 77 P: 79 DE: 133 QRS: 53 QRSD: 112 T: 67 QT: 376 QTc: 426 Interpretive Statements SINUS RHYTHM INDETERMINATE AXIS MODERATE INTRAVENTRICULAR CONDUCTION DELAY [110+ ms QRS DURATION] Compared to ECG 03/20/2023 16:49:31 Indeterminate axis now present Intraventricular conduction delay now present Atrial fibrillation no longer present Electronically Signed On 02-11-2024 21:25:29 CDT by Neri Albright M.D. [id number]
[2024-02-11] MEDS: sodium chloride 0.9% 1,000 ML 30 ML IV (06:37)
--- NOTE | 2024-02-11 07:00 | ANES.PREANE2 ---
Pre-Anesthetic Assessment Height/Weight: Height 1.78 m Weight 82.1 kg Temp Pulse Resp BP Pulse Ox O2 Del Method 97.8 F 84 18 140/89 96 Room Air 02/11/24 06:12 02/11/24 06:12 02/11/24 06:12 02/11/24 06:12 02/11/24 06:12 02/11/24 06:12 Operation Date: 02/11/24 07:00 Proposed Procedures p Bronchoscopy(Not Applicable) - Jim Jones MD s Ebus(Not Applicable) - Jim Jones MD s Ion Robotic Assisted Bronchoscopy(Not Applicable) - Jim Jones MD Familial anesthetic complications: none Was Beta Jaden taken within 24 hours: N/A Was Clonidine taken within 24 hours: N/A Last intake: Intake Last Liquid Date 02/10/24 Last Liquid Time 20:30 Last Solid Date 02/10/24 Last Solid Time 18:00 Social No alcohol and No tobacco Exam alert, oriented x 3 and regular rate & rhythm Airway Submandibular: within normal limits Cervical ROM: within normal limits Mallampati: Class II Dentition: false Pulmonary Chronic Obstructive Pulmonary Disease lobectomy Anesthetic Plan ASA status: 3 Anesthesia: General Medications/Allergies Home Medications Medication Instructions Recorded Confirmed Last Taken Type albuterol sulfate 90 mcg/actuation 2 puff inhalation Q6H PRN 08/07/23 02/11/24 02/11/24 History aerosol inhaler shortness of breath or wheezing Allergies Allergy/AdvReac Type Severity Reaction Status Date / Time erythromycin base Allergy Intermediate ADR-Nausea Verified 02/06/24 14:13 fluticasone Allergy Intermediate Unknown Verified 02/06/24 14:13 [From Advair Diskus] salmeterol Allergy Intermediate Unknown Verified 02/06/24 14:13 [From Advair Diskus] Current Medications Generic Name Dose Route Start Last Admin Trade Name Freq PRN Reason Stop Dose Admin Sodium Chloride 1,000 mls @ 30 mls/hr 02/11/24 06:15 02/11/24 06:37 Sodium Chloride 0.9% IV 02/12/24 06:14 30 mls/hr .Q24H CLEO Administration PFSH Anesthesia Medical History Adenomatous rectal polyp Tubular adenoma Non-small cell lung cancer History of malignant melanoma Renal cell carcinoma COPD (chronic obstructive pulmonary disease) Surgical History Status post lobectomy of lung History of melanoma excision (11/14/22) Wide excision of melanoma in situ History of bronchoscopy (12/10/22) History of bronchoscopy (12/26/21) History of colonoscopy (01/16/23) History of nephrectomy (08/06/22) Left radical nephrectomy Family History Father , AT 48 Heart attack Mother , AT 83 Cancer Social History Smoking and tobacco/nicotine status: former use of tobacco/nicotine Quit status (tobacco/nicotine): has quit using Year quit tobacco: August 2022 Former quit date comment: smoked x40 years Alcohol intake: never Substance/Drug Use: never Marital status: Current occupational status: retired Data Anesthesia Cardiac Studies: No Data to Display
--- NOTE | 2024-02-11 07:07 | W.PM.OPSUD ---
Surgery/Procedure H&P Update DATE OF PROCEDURE: February 11, 2024 DATE H&P PERFORMED: 02/06/24 H&P UPDATE INFORMATION: I have reviewed H&P completed within last 30 days, I have examined patient prior to procedure, No changes to prior documentation and Changes to prior documentation as noted here CHANGES TO PREVIOUS DOCUMENTATION: none PREOP DIAGNOSIS: suspected malignancy PRIMARY INDICATION FOR PROCEDURE: patient with history of biopsy-proven right upper lobe lung adenocarcinoma-s/p right upper lobectomy March 2023. Pathological staging IIA pT2a N0 M0-patient refused adjuvant chemo Surveillance CT scan most recent 01/29/2024: An enlarging left lower lobe pulmonary nodule measuring 2.2 cm no evidence of metastatic disease in abdomen/pelvis today comes for biopsy of LLL nodule to obtain tissues diagnosis to rule out recurrent vs new primary lung cancer PLANNED PROCEDURE: Operation Date: 02/11/24 07:00 Proposed Procedures p Bronchoscopy(Not Applicable) - Jim Jones MD s Ebus(Not Applicable) - Jim Jones MD s Ion Robotic Assisted Bronchoscopy(Not Applicable) - Jim Jones MD
--- NOTE | 2024-02-11 07:14 | SC_ITS ---
WS: [id number] C-ARM RADIOGRAPHS CHEST; 3 IMAGES HISTORY: Intraprocedure imaging during lung biopsy. COMPARISON: None available. C-arm for guidance during biopsy LEFT lower lobe pulmonary nodules. IMPRESSION: C-arm guidance for lung biopsy.
[2024-02-11] MEDS: lidocaine 1% INJ 10 mL (per mL) XX (07:25)
--- NOTE | 2024-02-11 08:39 | XR_ITS ---
WS: [id number] PORTABLE CHEST HISTORY: POST ION COMPARISON: 05/09/2023 No pneumothorax post bronchoscopy. Increased consolidation posterior LEFT heart corresponds to the nodule seen on recent CT. No areas of hemorrhage. No lobar collapse. No pleural effusion or pneumothorax. Cardiac size: Normal. Mediastinum/Aorta: Normal mediastinum. No osseous abnormality seen. IMPRESSION: No pneumothorax or complications post bronchoscopy.
[2024-02-11 08:45] LABS: Apprearance, Bronch Wash Hazy (CLEAR); Bronch Source LEFT LOWER LOBE BAL; Color, Bronc Wash Slight Pink; Total Cells Counted Bronch 200
[2024-02-11 08:47] VITALS: BP 113/64; PULSE 87; RESP 18; TEMP 36.1; O2SAT 91
--- NOTE | 2024-02-11 08:48 | P.OP_ITS ---
Operative Report Date of procedure: February 11, 2024 Pre-op diagnosis: Increasing left lower lobe lesion-suspicious for recurrent versus new lung Malignancy Post-op diagnosis: Suspected lung malignancy Procedure done: -Dx Bronchoscope w/Washings or airway inspection -Dx Bronchoscope w/BAL -Bronch with computer image guided Navigational Bronchoscopy -Bronchoscopy w/Transbronchial lung biopsy(s), single lobe using forceps -Bronchoscopy w/Transbronchial needle aspiration biopsy(s), tracheal, main stem, and/or lobar bronchus -Bronchoscopy w/ therapeutic aspiration of the tracheobronchial tree (clearance of airway secretions, removal of mucus plugs) -EBUS Sampling 1-2 nodes Surgeon: Jim Jones MD Brief History: Mr. Red Villareal is a 68-year-old male with past medical history Chronic smoker, COPD,Renal cell cancer s/p left radical nephrectomy in August 2022, h/o biopsy-proven right upper lobe lung adenocarcinoma-s/p right upper lobectomy March 2023. Pathological staging IIA pT2a N0 M0-patient refused adjuvant chemo His most recent surveillance CT scan 01/29/2024: An enlarging left lower lobe pulmonary nodule measuring 2.2 cm no evidence of metastatic disease in abdomen/pelvis Oncology requested for biopsies of left lower lobe pulmonary nodule to rule out recurrent versus new lung primary malignancy. Today patient is scheduled for robotic navigational bronchoscopy guided biopsies of left lower lobe nodule/EBUS guided hilar/mediastinal lymph nodes. Discussed about the nature of the procedure, alternatives, complications including pneumothorax/bleeding were discussed frankly with patient and his when they were in the clinic. He verbalized understanding and agreed to proceed with the biopsies. Procedure: -Dx Bronchoscope w/Washings or airway inspection -Dx Bronchoscope w/BAL -Bronch with computer image guided Navigational Bronchoscopy -Bronchoscopy w/Transbronchial lung biopsy(s), single lobe using forceps -Bronchoscopy w/Transbronchial needle aspiration biopsy(s), tracheal, main stem, and/or lobar bronchus -Bronchoscopy w/ therapeutic aspiration of the tracheobronchial tree (clearance of airway secretions, removal of mucus plugs) -EBUS Sampling 1-2 nodes ION ROBOTIC BRONCHOSCOPY NOTE Pre-procedure Verification: Prior to the procedure, the patient's identity was verified by full name, date of and medical record number. The patient's identity was verified on all pertinent medical records. Also prior to the procedure, a History and Physical was performed, and patient medications, allergies and sensitivities were reviewed. The patient's tolerance of previous anesthesia was reviewed. The risks and benefits of the procedure and the sedation options and risks were discussed with the patient. All questions were answered and informed consent was obtained. Planning: Using the [employer] planning software, this patient?s preoperative CT was loaded onto the system and then target and pathway mapping was performed. This was all done prior to the start of the procedure and appropriate plan verified prior to induction. Anesthesia: General anesthesia was used. Please see anesthesiology documentation for full details. A modified LNVP/Froylan Protocol was used for robotic bronchoscopy with rapid Intubation, recruitment maneuvers, Tidal Volume around 8-10mL/Kg Sabin Body Weight, and PEEP 10-15 as feasible. Time-Out: Prior to the start of the procedure, the patient's identification, proposed procedure, accurate signed consent, correctly labeled images and recor ds, and need for prophylactic antibiotics were verified by the physician, the nurse, the anesthesiologist and the single needle tufting machine operator in the procedure room. Procedural Details: After obtaining informed consent, The procedure was accomplished without difficulty. The patient tolerated the procedure well. Patient preparation: Patient was placed under general anesthesia. An 8.5 ETT was placed for bronchoscopy. The larynx and vocal cords were not visualized. The trachea was anatomically normal The right sided airway-right upper lobe entrance is occluded as patient has history of right upper lobectomy; rest of the bronchus intermedius, right middle lobe, right lower lobe was anatomically normal without endobronchial lesions. thin slightly mucoid appearing secretions. The left sided airway was anatomically normal without endobronchial lesions. thin slightly mucoid appearing secretions. Therapeutic aspiration of the airways, initial encounter, was performed at the left bronchial tree. The therapeutic bronchoscope was then removed. We communicated with the anesthesia team to ensure proper ventilator settings for optimal peripheral bronchoscopy. FIRST LOBE: The Ion Shape Sensing Robotic Assisted Bronchoscope was brought into the field and the process of registration was carried out. The guide catheter was used for peripheral navigational bronchoscopy using the planned pathway into the left lower lobe lesion and was able to be wedged peripherally at a distance of 8 mm away from the target. We locked the catheter position in, and removed the vision probe. We introduced the radial EBUS probe and obtained an good concentric signal [id number] image location relative to the lesion in the same lobe. We confirmed our location with a fluoroscopic C-arm. We then removed the R-EBUS and introduced the biopsy tools starting with a 21 G ION bronchoscopic peripheral needle for Transbronchial Needle Aspirations (TBNA). The first pass was not sent for Rapid On Site Evaluation (PORTILLO) as we do not have onsite pathology. We continued more biopsies in a cloud format. Transbronchial biopsies of left lower lobe lesion were using forceps. Transbronchial biopsy technique was selected because the sampling site was not visible endoscopically. The sampling device penetrated the full thickness of the bronchial wall to obtain the biopsy of lung tissue. 7 biopsy passes were pe rformed, and the same number of biopsy samples were obtained. Finally, we used a 20 cc syringe filled with normal saline connected to the proximal portion of the ION catheter and slowly injected; 10 cc and aspirated the contents for a bronchial alveolar lavage of the left lower lobe. The return was cloudy and blood tinged 13 cc . At this point and after confirming the absence of bleeding, we removed the channel. Minimal blood residue was cleared from the airway and the peripheral navigation portion of the procedure was concluded. Empiric cold saline was instilled through the catheter and tamponade held for 1-5 minutes. Next, we turned our attention to linear EBUS staging. An EBUS exam was performed: - station 7 were enlarged > 5mm and sampled. - Stations 11 L, 10 L, 4L, 11 R, 10 R, 4R and were also scanned but no obvious lymph nodes were identified and thus did not meet criteria for sampling. Level 7 station was identified with the EBUS scope at the medial LMSB/RMSB and 4 passes were made using a 21 G Olympus TBNA needle. Rapid onsite path evaluation (PORTILLO) was not utilized for this case. Following completion of all diagnostic and therapeutic procedures, hemostasis was verified. The scope was removed and procedure concluded. Samples: A. Left Lower lobe lesion 1. Total of 7 passes were made using needle aspiration ; we do not have onsite pathology and so all the material was placed in formalin for histopathology 2. Targeting the same area 7 passes were made using forceps ; we do not have onsite pathology and so all the material was placed in formalin for histopathology 3. Bronchoscope was wedged at the entrance of the medial segment of left lower lobe, 20 mL of saline was instilled and returned 13 mL of bronchoalveolar lavage . The fluid was mixed with blood and specks of tissue. Samples for cell count, cytology, cultures B. EBUS guided Fine-needle aspiration biopsies were taken from station 7 4. Total of 4 passes were made using needle aspiration from station 7; all the material was placed in formalin and sent for histopathology Complications: None.The patient was extubated and brought to the PACU in stable condition. Postprocedure chest x-ray: There is no evidence of pneumothorax Disposition: Patient can be discharged home in stable condition. Pt, and are aware that I am going to call them to update final biopsy results once available. Related Problem List Diagnoses (1) Left lower lobe pulmonary nodule: (2) Primary adenocarcinoma of upper lobe of right lung:
[2024-02-11 08:49] LABS: Cyto Order Verification Order Verified
[2024-02-11 08:58] VITALS: BP 123/81; PULSE 78; RESP 18; O2SAT 91
[2024-02-11 09:07] VITALS: BP 107/75; PULSE 72; RESP 18; O2SAT 93
[2024-02-11 09:25] VITALS: BP 104/69; PULSE 75; RESP 16; O2SAT 94
[2024-02-11 09:55] VITALS: BP 102/77; PULSE 73; RESP 18; O2SAT 97
[2024-02-11 11:14] LABS: PATH Referral Yes
--- NOTE | 2024-02-11 14:37 | ANE.PACU2 ---
Inpatient post-anesthesia follow up: Airway intact: Yes Vital signs: Temperature 97 F Pulse Rate 73 Respiratory Rate 18 Blood Pressure 102/77 Pulse Oximetry 97 Oxygen Delivery Me thod Room Air Oxygen Flow Rate Fraction of Inspir ed Oxygen Hydration adequate: Yes Nausea and vomiting: No Pain level: 2 Mental status: Baseline
[2024-02-20 07:03] LABS: PD-L1 (Clone 22C3) by IHC BBPL See Report
== END 2024-02-11 10:10 | disposition home or self-care (01) ==
PROVIDERS: PCP Family Medicine; Visit Provider Internal Medicine Pulmonary Disease
PROC: 0BJ08ZZ Inspection of Tracheobronchial Tree, Via Natural or Artificial Opening Endoscopic (ICD-10-PCS; CPT 31622; principal; 2024-02-11 07:00)
PROC: BB4BZZZ Ultrasonography of Pleura (ICD-10-PCS; 2024-02-11 07:00)
PROC: 0BJ08ZZ Inspection of Tracheobronchial Tree, Via Natural or Artificial Opening Endoscopic (ICD-10-PCS; CPT 31622; 2024-02-11 07:00)
DX: C34.32 Malignant neoplasm of lower lobe, left bronchus or lung (principal); Z87.891 Personal history of nicotine dependence; J43.9 Emphysema, unspecified; Z90.2 Acquired absence of lung [part of]; D03.59 Melanoma in situ of other part of trunk
CPT/HCPCS: 31624; 31627; 31628; 31629; 31645; 31652; 71045; 76000; 80503; 87070; 87205; 88112; 88305; 88341; 88342; 89050; 93005; J1100; J2371; J2405; J2704; J3010; J3490; J7030

== ENCOUNTER 2024-02-25 13:34 | Outpatient (CLI) | payer MEDICARE, SELFPAY ==
--- NOTE | 2024-02-25 14:00 | PETR_ITS ---
PROCEDURE INFORMATION: Exam: PET/CT Skull Base to Mid-thigh Exam date and time: 02/25/2024 2:05 PM Age: 68 years old Clinical indication: Condition or disease; Primary cancer: Lung cancer lll; Initial oncological staging assessment; Prior surgery; Surgery date: 6+ months; Surgery type: Left kidney, RT lung; Additional info: Initial staging LABS AND CLINICAL REPORTS: Glucose: 68 mg/dl Treatment strategy for malignancy (PET staging): Initial Staging (PI) TECHNIQUE: Imaging protocol: Following at least four-hour fasting and following the injection of radiopharmaceutical, low dose CT images were obtained. Then, PET images were obtained. Attenuation corrected images were constructed using the CT scan. Fused images of PET and CT were reviewed. The standardized uptake values (SUV) reported below are maximum values within a region of interest, expressed in gm/ml. Exam includes orbital meatal line to mid-thigh. Radiopharmaceutical: 13.4 mCi F-18 FDG (Fluorodeoxyglucose), IV. Time of imaging post radiopharmaceutical administration: 1 hour Injection site: Left hand COMPARISON: CT chest, abdomen and pelvis 01/29/2024, PT PET [facility] SUBSEQ [id number] 11/10/2022 11:30 AM FINDINGS: Limitations: The examination is slightly technically suboptimal secondary to the scan to injection time outside of recommended parameters (45-75 minutes). Reported scan to injection time of 43.3 minutes. Injection to scan times outside of recommended parameters can result in decreased PET sensitivity and limit the utility of comparison of SUV values to prior or subsequent exams. Brain: Visualized brain has normal physiologic uptake. Salivary glands: A small focus of elevated uptake in the left parotid gland is noted, SUV max 3.6 (previously 5.8) on series 12, image 40. This continues to correspond to an approximately 7 mm in diameter soft tissue density nodule on series 3, image 40. Pharynx: There is mild physiologic versus inflammatory uptake in the region of the bilateral palatine tonsils which has decreased. Larynx: No abnormal uptake. Lungs, pleura and trachea: Elevated uptake in a solid 2.2 cm posterior left lower lobe nodule is noted, SUV max 8.8. A adjacent small solid nodules are not radiotracer avid for example measuring 7 mm laterally on image 123 and 1.1 x 0.7 cm on image 127 of series 3. These nodules are similar compared with 01/29/2024, increased in size since the prior PET-CT with previous uptake in this region demonstrating an SUV max 2.8. A lateral left lower lobe solid nodule is not radiotracer avid measuring 8 mm on series 3, image 134 similar to at least the prior PET-CT. There are postoperative changes of right upper lobectomy. Numerous clustered solid non radiotracer avid nodules in the right middle lobe are noted measuring up to 4 mm on series 3, image 103. These nodules are similar compared with 01/29/2024 and new since the prior PET-CT. A small right pleural effusion is present. Heart: Normal physiologic uptake. Mediastinal space: No abnormal uptake. Liver: Non radiotracer avid low-density lesions in the liver are noted in the medial right lobe measuring 1.2 cm on series 3, image 162 and measuring 1 cm on image 176 likely representing benign cysts or hemangiomas. Gallbladder and bile ducts: No abnormal uptake. Pancreas: No abnormal uptake. Spleen: No abnormal uptake. Adrenal glands: Mild asymmetric diffuse thickening of the left adrenal gland is noted without elevated uptake compatible with a benign etiology. Kidneys and ureters: The left kidney is surgically absent with no abnormal uptake in the operative bed. Normal physiologic uptake in the right kidney. Stomach and bowel: No abnormal uptake. There are scattered colonic diverticula. Reproductive: Prostate gland is mildly prominent without elevated uptake. Vasculature: No abnormal uptake. Atherosclerotic calcifications are noted including within the coronary arteries. Lymph nodes: No abnormal uptake. No lymphadenopathy in the head, neck, chest, abdomen, pelvis, and extremities. Bones/joints: No abnormal uptake in the visualized axial and appendicular skeleton. Mild degenerative changes in the spine are present. Soft tissues: No abnormal uptake in the visualized head, neck, chest, abdomen, pelvis, and extremities. A similar in size non radiotracer avid ovoid fat density left axillary mass is noted measuring 5.0 x 2.7 cm in the axial plane on series 3, image 74 x 4.9 cm superior to inferior. METRICS: Mediastinal blood pool: SUV max 2.3. PET/PET [facility] INITIAL [id number] IMPRESSION: 1. Solid left lower lobe nodules are similar compared with 01/29/2024 and increased in size since the prior PET-CT, with interval increase in abnormal uptake in this region within the dominant nodule (SUV max 8.8) concerning for malignancy. 2. Similar non radiotracer avid lateral left lower lobe nodule. 3. Small right middle lobe nodular densities are new since the prior PET-CT and are not radiotracer avid. Assessment of small nodules can be limited by PET-CT. Infectious, inflammatory or malignant etiologies are not excluded. 4. Interval increase in abnormal uptake in a small nodule adjacent to the left parotid gland which may be inflammatory or malignant in etiology. 5. An ovoid fat density left axillary mass remains non radiotracer avid and is similar in size which favors the presence of a benign lipoma. Assessment of fat containing lesions can be limited by PET-CT. MRI with and without contrast may be useful for further characterization as clinically indicated. 6. Additional nonurgent findings as detailed above.
== END 2024-02-25 13:35 | disposition home or self-care (01) ==
LOC: RAD 13:34
PROVIDERS: PCP Family Medicine; Visit Provider Nurse Practitioner Family
DX: C34.32 Malignant neoplasm of lower lobe, left bronchus or lung (principal)
CPT/HCPCS: 78815; A9552

== ENCOUNTER 2024-03-24 14:25 | Oncology outpatient (recurring) (ONCR) | payer MEDICARE, SELFPAY ==
[2024-03-06 11:24] LABS: Basophils # 0.1 10^3/uL (0.0-0.1); Basophils % 1.1 %; Eosinophils # 0.2 10^3/uL (0.0-0.8); Eosinophils % 2.9 %; Hematocrit 46.9 % (37-53); Lymphocytes # 2.3 10^3/uL (0.8-4.8); Lymphocytes % 26.9 %; Mean Corpuscular HGB Conc 33.3 g/dL (30-55); Mean Corpuscular Hemoglobin 29.1 pg (27-33); Mean Corpuscular Volume 87.3 fl (82-101); Mean Platelet Volume 9.2 fL (7.4-10.4); Monocytes # 0.7 10^3/uL (0.2-0.9); Monocytes % 8.2 %; Neutrophils % 60.5 %; Nucleated Red Blood Cells % 0 %; Platelet Count 305 10^3/cmm (157-399); Red Blood Count 5.37 10^6/uL (3.85-5.65); Red Cell Distribution Width 13.9 % (12.1-15.1); White Blood Count 8.41 10^3/uL (3.29-11.43)
[2024-03-06 11:42] LABS: Alanine Aminotransferase 10 U/L (0-41); Albumin Level 3.9 g/dL (3.5-5.2); Alkaline Phosphatase 93 U/L (40-130); Anion Gap 11.6 (5-19); Aspartate Amino Transferase 13 U/L (0-40); Blood Urea Nitrogen 19 mg/dL (8-23); Calcium 8.6 mg/dL (8.5-10.5); Carbon Dioxide 27 mmol/L (22-29); Chloride 106 mmol/L (98-107); Creatinine Clr Calc Pharmacy 63.0355; Glucose 75 mg/dL (65-115); Osmolality Calculated 291 mOsm/kg (285-295); Potassium 4.6 mmol/L (3.5-5.1); Sodium 140 mmol/L (136-145); Total Bilirubin 0.2 mg/dL (0.15-1.2); Total Protein 6.9 g/dL (6.6-8.7)
--- NOTE | 2024-03-10 08:19 | N.ONRAD NP_ITS ---
Radiation Oncology New Patient Visit Patient: Red Villareal MR#: [id number] : 1955> Age: 68> Sex: Male> Dictated by: Tucker Charles Date of Service: 03/09/2024 Referring Physician(s) : Diagnosis: St I(T1 N0 M0 ) adenocarcinoma of left lower lobe s/p bx 02/11/2024. Here to address primary radiation. Radiotherapy to date: Summary > No prior radiation therapy. Chief Complaint / History of Present Illness: 68 yo man with prior hx of smoking s/p left nephrectomy for primary St I RCC 08/06/2022 in [place] and RULectomy here for st I adenocarcinoma of right lung 03/19/2023. He did well with prior surgeries and has been followed without adjuvant treatment. He has been followed for left lower lung nodule since prior lung surgery. This has grown in size with CT 01/29/2024 showing a multinodular mass in posterior left lower lobe. Bronch and bx 02/11/2024 poorly differentiated adenocarcinoma c/w prior RUL resected lesion. PET/CT Confirmed solid Left lower lobe mass with significant uptake associated with adjacent nodules with no uptake. Small nodule left deep parotid lobe inflammatory vs malignancy.. Small right middle lobe nodule with no hypermetabolic activity. Current Medications: albuterol sulfate 90 mcg/actuation 2 puffs inhalation Q6H PRN Allergies: erythromycin base Allergy (Intermediate, Verified 03/06/24 11:31) ADR-Nausea, fluticasone [From Advair Diskus] Allergy (Intermediate, Verified 03/06/24 11:31) Unknown, salmeterol [From Advair Diskus] Allergy (Intermediate, Verified 03/06/24 11:31) Unknown Medical History: No previous radiation therapy. Adenomatous rectal polyp-Tubular adenoma, Non-small cell lung cancer, History of malignant melanoma, Renal cell carcinoma, COPD (chronic obstructive pulmonary disease) Surgical History: Status post lobectomy of left lung ( 03/19/2023), History of melanoma excision (11/14/22) Wide excision of melanoma in situ, History of bronchoscopy (12/10/22), History of bronchoscopy (12/26/21), History of colonoscopy (01/16/23) ,History of nephrectomy (08/06/22), Left radical nephrectomy Family History: Father , AT 48- Heart attack, Mother , AT 83-Cancer Social History: x 45 years. 1 adopted daughter 31, living at home with them who has special needs. 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 Moved here 10 years ago. Active remodeling home here and collects [employer] cars Smoking and tobacco/nicotine status: former use of tobacco/nicotine (quit of August 2022 ) Quit status (tobacco/nicotine): has quit using Year quit tobacco: August 2022 Former quit date comment: smoked x40 years, Alcohol intake: never, Substance/Drug Use: never, Marital status: , Current occupational status: retired Vital Signs: Performed on 03/09/2024 3:38 PM BMI - 25.105 kg/m2 (high), Height - 71 in, Weight - 180 lbs, Temperature - 97.1 f, Pulse - 54 /min (low), Respiration - 16 /min, O2 Sat - 100 %, Pain - 0, Fatigue - 0 and BP - 121/ 78 mm(hg). Physical Exam: Unremarkable. Performance Status: 0 Pathology: See HPI Imaging: See HPI Impression:St I adenocarcinoma of posterior left lung. No convincing evidence for any active disease elsewhere. Indeterminate left parotid nodule which should be monitored for now Recommend primary SBRT to left lung primary malignancy. Plan 50 Gy in 5 treatments over two weeks. Signed by: 03/10/2024 8:17:32 AM <<Signature on File>> Time spent with patient: CPT Code: CPT Code:
== END 2024-03-24 23:59 | disposition home or self-care (01) ==
PROVIDERS: Internal Medicine Hematology & Oncology; PCP Family Medicine; Visit Provider Internal Medicine Medical Oncology
DX: Z51.0 Encounter for antineoplastic radiation therapy (principal); C34.32 Malignant neoplasm of lower lobe, left bronchus or lung
CPT/HCPCS: 36415; 77300; 77301; 77334; 77338; 77373; 77470; 80053; 85025; 99205; 99214

== ENCOUNTER 2024-03-26 15:02 | Oncology outpatient (recurring) (ONCR) | payer MEDICARE, SELFPAY ==
--- NOTE | 2024-03-26 15:43 | N.ONRD TS_ITS ---
Radiation Oncology Treatment Summary / OTV Patient: Red Villareal MR#: [id number] : 1955 Age: 68 Sex: Male Dictated by: Dr. Carleen García Date of Service: 03/26/2024 Referring Physician(s) : Dr. Jones Diagnosis: C34.90 - Malignant neoplasm of unspecified part of unspecified bronchus or lung, Diagnosed 02/11/2024 (Active) Radiotherapy to Date: Course: Lung SBRT 2023, Treatment Site: LT Lung SBRT, Ref. ID: [id number], Energy: 6X, Dose/Fx (cGy): 1,200, #Fx: 4 / 4, Dose Correction (cGy): 0, Total Dose Delivered (cGy): 4,800, Start Date: 03/23/2024, End Date: 03/26/2024, Elapsed Days: 3 Clinical Summary: The patient tolerated RT well. Patient tolerated treatment well. Had essentially no toxicity. Will see him back in a month with a CT scan Plan: End of treatment today. Continue on the above medication until the skin reaction resolves. Follow up in one month. Signed by: Dr. Carleen García>03/26/2024 3:43:01 PM <<Signature on File>>
== END 2024-04-03 23:59 | disposition home or self-care (01) ==
PROVIDERS: PCP Family Medicine; Visit Provider Internal Medicine Medical Oncology
DX: Z51.0 Encounter for antineoplastic radiation therapy (principal); C34.32 Malignant neoplasm of lower lobe, left bronchus or lung
CPT/HCPCS: 77336; 77373; 99024

== ENCOUNTER 2024-04-15 09:52 | Oncology outpatient (recurring) (ONCR) | payer MEDICARE, SELFPAY ==
--- NOTE | 2024-04-13 08:00 | CT_ITS ---
WS: [id number] CT chest w con* [id number] HISTORY: lung cancer sp XRT TECHNIQUE: Axial imaging performed through the thorax. Coronal and sagittal reformats are submitted. All CT scans at [facility] use at least one of these dose optimization techniques: automated exposure control; mA and/or kV adjustment per patient size (includes targeted exams where dose is mat ched to clinical indication); or iterative reconstruction. CONTRAST: Omnipaque 350; 100 mL IV. DLP: 389.82 mGy.cm COMPARISON: 01/29/2024, 10/15/2023, PET/CT 02/25/2024 Lungs and central airway: Multiple nodules are reidentified in the LEFT lower lobe. The dominant PET CT positive nodule measures 1.7 x 2.0 cm which has minimally but may not be significant, decreased in size. The additional smaller satellite nodules are reidentified with the largest measuring up to 0.9 cm. These adjacent nodules were negative on the PET/CT. Dominant mass has increased in size since . There is an additional well-circumscribed 0.8 cm nodule in the more superior segment LEFT l ower lobe which is stable. Background of centrilobular emphysema. Airspace disease and tree-in-bud op acification RIGHT upper lobe is stable. Pleura: Small layering RIGHT pleural effusion. Heart and pericardium: Normal size heart with no pericardial effusion. Mediastinum and sheila: No mediastinum or hilar adenopathy. Vessels: Normal size aortic and pulmonary artery. No coronary artery calcifications. Chest wall and lower neck: Mild gynecomastia. Upper abdomen: LEFT kidney is not identified in the upper abdomen which may have been surgically patric lisette. LEFT adrenal hyperplasia. Osseous structures: Increase in thoracic kyphosis. Mild thoracic spondylosis. Tiny sclerotic focus in the mid sternal body is stable. CT/CT chest w con* [id number] IMPRESSION: 1. PET/CT positive nodule LEFT lower lobe measuring 1.7 x 2.0 cm is minimally decreased in size since 01/29/2024. There has been no increase in size. 2. The additional LEFT lower lobe pulmonary nodules are unchanged. 3. Stable tree-in-bud airspace disease RIGHT upper lobe. 4. No mediastinal or hilar adenopathy. 5. Very small layering RIGHT pleural effusion.
[2024-04-13] MEDS: iohexol 350 mg/mL 500 mL Btl (per mL) IV (08:01)
--- NOTE | 2024-04-15 10:37 | ONCRAD EPV_ITS ---
Radiation Oncology Established Patient Visit Patient: Red Villareal [id number] : 1955 Age: 68 Sex: Male Dictated by: Dr. Carleen García Date of Service: 04/15/2024 Referring Physician(s) : Patient is here today for the results of his CT scan. The nodule in the left lower lobe has decreased slightly from previously. No additional nodules were noted. The ones that had previously been there were unchanged. All the other changes were stable. He is seen today to discuss follow-up and scheduling of his scans. Diagnosis: C34.90 - Malignant neoplasm of unspecified part of unspecified bronchus or lung, Diagnosed 02/11/2024 (Active) Radiotherapy to Date: Course: Lung SBRT 2023, Treatment Site: LT Lung SBRT, Ref. ID: [id number], Energy: 6X, Dose/Fx (cGy): 1,200, #Fx: 4 / 4, Dose Correction (cGy): 0, Total Dose Delivered (cGy): 4,800, Start Date: 03/23/2024, End Date: 03/26/2024, Elapsed Days: 3 Current History: Current Medications: Allergies: Current Complaints / Review of Systems: . Vital Signs: Performed on 04/15/2024 9:58 AM BMI - 24.742 kg/m2 (high), Height - 71 in, Weight - 177.4 lbs, Temperature - 97.5 f, Pulse - 54 /min (low), Respiration - 16 /min, O2 Sat - 98 %, Pain - 0, Fatigue - 0 and BP - 139/ 85 mm(hg). Physical Exam: General: Alert and oriented x 3. No acute distress. HEENT: Normocephalic atraumatic. Pupils are equal, sclera clear, extraocular muscles intact LUNGS: Respiratory rate is regular nonlabored HEART: Regular rate and rhythm, . ABDOMEN: Abdomen is fairly flat with minimal adipose tissue EXTREMITIES: No peripheral edema is identified. NEUROLOGIC alert and orient x 3. Gait and speech within normal limits Performance Status: 100 Lab: None pending. Pathology: Primary, c34.90 - malignant neoplasm of unspecified part of unspecified bronchus or lung, Diagnosed 02/11/2024 (active) . Imaging: See HPI Impression: Non-small cell carcinoma lung After much discussion he has elected to proceed with scans every 6 months. We will call him with those results rather than have him come for appointments. I told him that we would discuss positive or negative results over the phone and then proceed with the additional scans every 6 months. I have asked him to call if he should feel like anything is changed and we be happy to get him back in at any time. Signed by: 04/15/2024 10:35:47 AM <<Signature on File>> Time spent with patient:20 CPT Code: CPT Code:
== END 2024-05-03 23:59 | disposition home or self-care (01) ==
LOC: ONCMED 09:52
PROVIDERS: PCP Family Medicine; Visit Provider Radiology Radiation Oncology
DX: C34.32 Malignant neoplasm of lower lobe, left bronchus or lung (principal); Z92.3 Personal history of irradiation
CPT/HCPCS: 71260; 99024; Q9967

== ENCOUNTER → 2024-07-30 10:23 | Outpatient (BNVA) | payer MEDICARE, SELFPAY | PROVIDERS: PCP Family Medicine; Visit Provider Nurse Practitioner Family | DX: D48.5 Neoplasm of uncertain behavior of skin (principal); L57.0 Actinic keratosis; D22.39 Melanocytic nevi of other parts of face; D36.11 Benign neoplasm of peripheral nerves and autonomic nervous system of face, head, and neck; L81.4 Other melanin hyperpigmentation; L72.11 Pilar cyst; Z85.820 Personal history of malignant melanoma of skin | CPT/HCPCS: 11102; 17000; 99213 ==

== ENCOUNTER → 2024-08-18 07:53 | Outpatient (BNVA) | payer MEDICARE, SELFPAY | PROVIDERS: PCP Family Medicine; Visit Provider Dermatology | DX: C44.319 Basal cell carcinoma of skin of other parts of face (principal) | CPT/HCPCS: 13132; 17311 ==

== ENCOUNTER → 2024-08-24 14:08 | Outpatient (BNVA) | payer MEDICARE, SELFPAY | PROVIDERS: PCP Family Medicine; Visit Provider Dermatology | DX: D36.13 Benign neoplasm of peripheral nerves and autonomic nervous system of lower limb, including hip (principal); D22.5 Melanocytic nevi of trunk; L57.2 Cutis rhomboidalis nuchae; D48.5 Neoplasm of uncertain behavior of skin | CPT/HCPCS: 11102; 11402; 13101; 99213 ==

== ENCOUNTER 2024-10-22 10:17 | Oncology outpatient (recurring) (ONCR) | payer MEDICARE, SELFPAY ==
--- NOTE | 2024-10-15 12:30 | CTR_ITS ---
PROCEDURE INFORMATION: Exam: CT Chest With Contrast; Diagnostic Exam date and time: 10/15/2024 12:56 PM Age: 69 years old Clinical indication: Condition or disease; Lung condition and disease; Cancer of the lung; Unspecified; Primary cancer: Right lung; Prior surgery; Surgery date: 6+ months; Surgery type: RT lung; Additional info: Lung CA TECHNIQUE: Imaging protocol: Diagnostic computed tomography of the chest with contrast. Radiation optimization: All CT scans at this facility use at least one of these dose optimization techniques: automated exposure control; mA and/or kV adjustment per patient size (includes targeted exams where dose is matched to clinical indication); or iterative reconstruction. Contrast material: OMNI 350; Contrast volume: 100 ml; Contrast route: INTRAVENOUS (IV); COMPARISON: CT chest w con* [id number] 04/13/2024 7:56 AM RADIATION DOSE METRICS: Total DLP (mGy-cm): 340.65 FINDINGS: Lungs: There is subsegmental atelectasis and scarring in the inferior right lower lobe. There is mild volume loss in the right lung. There is mild reticulonodular opacity in anterior right upper lung which is similar to the findings on 02/25/2024. There is a stable 9 mm noncalcified nodule in the anterolateral left lower lobe on axial series 4, image 48. There is a 7 x 4 mm irregular nodule with surrounding ground-glass opacity in posterior left lower lobe in the superior segment, decreased from 2.4 x 1.8 cm on 04/13/2024. Pleural spaces: Small simple dependent right pleural effusion. There is anterior displacement of the right major fissure. Heart: Heart size is normal. There is no pericardial effusion. Lymph nodes: There is no mediastinal or hilar lymphadenopathy. Vasculature: The aorta is unremarkable. There is no aneurysm. Pulmonary arteries are unremarkable. Adrenal glands: There is hypertrophy of the left adrenal gland. Bones/joints: No suspicious bone lesions. Soft tissues: The extrathoracic soft tissues are unremarkable. CT/CT chest w con* [id number] IMPRESSION: 1. Markedly decreased size of left lower lobe pulmonary nodule since 04/13/2024. 2. Stable 9 mm left lower lobe pulmonary nodule. 3. Persistent reticulonodular opacity in the anterior right upper lung suggesting chronic bronchiolitis. 4. Stable volume loss in the right lung. 5. Stable small simple dependent right pleural effusion.
[2024-10-15 12:55] LABS: Blood Urea Nitrogen 17 mg/dL (8-23); Glomerular Filtration Rate 66.2 mL/min (90-130)
[2024-10-15] MEDS: iohexol 350 mg/mL 500 mL Btl (per mL) IV (13:11)
== END 2024-11-03 23:59 | disposition home or self-care (01) ==
PROVIDERS: PCP Family Medicine; Visit Provider Radiology Radiation Oncology
DX: Z53.9 Procedure and treatment not carried out, unspecified reason (principal)
CPT/HCPCS: 71260; 82565; 84520

== ENCOUNTER 2024-12-07 15:48 | Oncology outpatient (recurring) (ONCR) | payer MEDICARE, SELFPAY ==
--- NOTE | 2024-12-07 16:00 | CTR_ITS ---
PROCEDURE INFORMATION: Exam: CT Head Without And With Contrast Exam date and time: 12/07/2024 3:59 PM Age: 69 years old Clinical indication: Pain; Headache not specified; Severe headaches with nausea and dizziness x 3 months. HX of lung and kidney cancer; Additional info: Headache/ nausea/ HX of cancer TECHNIQUE: Imaging protocol: Computed tomography of the head without and with contrast. Radiation optimization: All CT scans at this facility use at least one of these dose optimization techniques: automated exposure control; mA and/or kV adjustment per patient size (includes targeted exams where dose is matched to clinical indication); or iterative reconstruction. Contrast material: OMNI 350; Contrast volume: 100 ml; Contrast route: INTRAVENOUS (IV); COMPARISON: CT head wo con* [id number] 11/05/2022 9:58 AM RADIATION DOSE METRICS: Total DLP (mGy-cm): 2152.18 FINDINGS: Brain: There is an enhancing mildly lobulated mass within the right temporal lobe measuring 34 mm transverse by 49 mm AP x 39 mm craniocaudal dimension. There is a subcentimeter mildly hyperdense focus along the anterior aspect of the mass which could represent early calcification or potentially small focus of hemorrhage. There is a large amount of surrounding vasogenic edema within the temporal lobe with effacement of the cortical sulci throughout the right supratentorial hemisphere. There is mass effect on the right lateral ventricle with approximately 5 mm midline shift to the left. There is dilatation of the right temporal horn suspicious for development of early hydrocephalus. No other masses or areas of other abnormal enhancement are seen. Cerebral ventricles: Mass effect on the right lateral ventricle with approximately 5 mm midline shift to the left. Paranasal sinuses: There is chronic appearing mucosal inflammation within the lateral left maxillary sinus which could alternatively represent a mucous retention cyst or polyp. Mastoid air cells: Visualized mastoid air cells are well aerated. Bones: Intact. No acute fracture detected. Soft tissues: Unremarkable. CT/CT head wo/w con [id number] IMPRESSION: Enhancing lobulated 34 x 49 x 39 mm mass in the right temporal lobe with significant surrounding vasogenic edema and mass effect with approximately 5 mm midline shift to the left and dilatation of the right temporal horn suggesting early hydrocephalus as described above. These findings are new since November 05, 2022.
[2024-12-07] MEDS: iohexol 350 mg/mL 500 mL Btl (per mL) IV (16:11)
== END 2025-01-01 23:59 | disposition home or self-care (01) ==
LOC: RAD 15:50 → ONCMED 12-08 10:01
PROVIDERS: PCP Family Medicine; Visit Provider Family Medicine
DX: R11.0 Nausea (principal); C34.11 Malignant neoplasm of upper lobe, right bronchus or lung; C64.9 Malignant neoplasm of unspecified kidney, except renal pelvis; Z85.820 Personal history of malignant melanoma of skin; R51.9 Headache, unspecified; R22.0 Localized swelling, mass and lump, head
CPT/HCPCS: 70470

== ENCOUNTER → 2025-01-04 07:51 | Outpatient (BNVA) | payer MEDICARE, SELFPAY | PROVIDERS: PCP Family Medicine; Visit Provider Nurse Practitioner Family | DX: L85.3 Xerosis cutis (principal); Z85.820 Personal history of malignant melanoma of skin; Z08 Encounter for follow-up examination after completed treatment for malignant neoplasm; Z85.828 Personal history of other malignant neoplasm of skin; D48.5 Neoplasm of uncertain behavior of skin | CPT/HCPCS: 11102; 99214 ==

== ENCOUNTER → 2025-01-21 11:20 | Day surgery (SDC) | payer MEDICARE, SELFPAY ==
--- NOTE | 2025-01-21 11:45 | US_ITS ---
WS: [id number] ULTRASOUND-GUIDED LIVER BIOPSY. Patient elected not to have the procedure at this time and to discuss the matter further with their oncologist and therapy team. Liver biopsy was not performed. No anesthesia was administered.
[2025-01-21 11:46] VITALS: BMI 21.3
[2025-01-21 11:48] VITALS: BP 117/88; PULSE 71; RESP 16; TEMP 36.4; O2SAT 98
--- NOTE | 2025-01-21 13:37 | PC.NURSE ---
Dr. Lee explained all risks and benefits to the pt regarding us liver bx. Pt decided not to proceed and will follow up with Dr. García.
[2025-01-21] MEDS: sodium chloride 0.9% 500 ML 15 ML IV (13:49)
== END ==
LOC: GILAB 11:22
PROVIDERS: Radiology Neuroradiology; PCP Family Medicine; Visit Provider Internal Medicine Medical Oncology
DX: C78.7 Secondary malignant neoplasm of liver and intrahepatic bile duct (principal); Z53.29 Procedure and treatment not carried out because of patient's decision for other reasons
CPT/HCPCS: 36415; 76705; 85610; J2704; J7040

== ENCOUNTER 2025-02-01 10:51 | Oncology outpatient (recurring) (ONCR) | payer MEDICARE, SELFPAY ==
--- NOTE | 2025-01-13 14:30 | ONCRAD EPV_ITS ---
Radiation Oncology Established Patient Visit Patient: Red Villareal [id number] : 1955 Age: 69 Sex: Male Dictated by: Dr. Carleen García Date of Service: 01/13/2025 Referring Physician(s) : Diagnosis: C79.31 - Secondary malignant neoplasm of brain, Diagnosed 01/12/2025 (Active) C34.90 - Malignant neoplasm of unspecified part of unspecified bronchus or lung, Diagnosed 02/11/2024 (Active) Radiotherapy to Date: Course: Lung SBRT 2023, Treatment Site: LT Lung SBRT, Ref. ID: [id number], Energy: 6X, Dose/Fx (cGy): 1,200, #Fx: 4 / 4, Dose Correction (cGy): 0, Total Dose Delivered (cGy): 4,800, Start Date: 03/23/2024, End Date: 03/26/2024, Elapsed Days: 3 Current History: Patient has recently been found to have a brain metastasis which was nearly 5 x 4 x 3.8 cm in size. He had symptoms related to nausea vomiting headache and dizziness. He had surgery with the bulk of the disease removed on January 11. He is here today postop to discuss radiation's role in his current situation. He is also getting a PET scan and an ultrasound on Saturday and a biopsy of a liver mass which is new. Current Medications: Allergies: Current Complaints / Review of Systems: . Vital Signs: Performed on 01/13/2025 1:22 PM BMI - 21.897 kg/m2, Height - 71 in, Weight - 157 lbs, Temperature - 98.1 f, Pulse - 86 /min, Respiration - 16 /min, O2 Sat - 96 %, Pain - 0, Fatigue - 0 and BP - 106/ 64 mm(hg)(/low). Physical Exam: General: Alert and oriented x 3. No acute distress. HEENT: Normocephalic atraumatic. Pupils are equal, sclera clear, extraocular muscles intact. The scalp area is nicely healed. There is no erythema or drainage. LUNGS: Respiratory rate is regular nonlabored HEART: Regular rate and rhythm. NEUROLOGIC: Alert and orient x 3. Gait and speech within normal limits. Performance Status: 90 Lab: None pending. Pathology: Primary, c79.31 - secondary malignant neoplasm of brain, Diagnosed 01/12/2025 (active) and Primary, c34.90 - malignant neoplasm of unspecified part of unspecified bronchus or lung, Diagnosed 02/11/2024 (active) . Imaging: See HPI Impression: Non-small cell carcinoma lung, renal cancer, melanoma now with brain metastasis and liver mets Plan: At this point he is currently undergoing restaging and workup. His PET scan is scheduled for Saturday. He also has a biopsy of the liver lesion that is not yet scheduled. I reviewed with him and his the situation currently. We talked about the information that we still need to gather. We reviewed the different things that he has been through since his last follow-up. We discussed the role of radiation and proceeding with treatment to his brain. We reviewed the simulation process. We discussed the risks and side effects both acute and long-term. At this point he will return coordinating with next medical oncology appointment to undergo simulation and begin his treatment shortly thereafter. Signed by: 01/13/2025 2:30:27 PM <<Signature on File>> Time spent with patient:45 CPT Code: * CPT Code: *
--- NOTE | 2025-01-15 08:00 | US_ITS ---
WS: [id number] RIGHT UPPER QUADRANT ULTRASOUND HISTORY: possible liver mets COMPARISON: 10/15/2024, CT 01/29/2024 Liver: 20.0 cm in length. Liver is enlarged. Hyperechoic mass which appears to be in the LEFT lobe of the liver measures 5.6 x 4.2 x 4.4 cm. There is mass has not been previously described but may be a benign hemangioma. There are a few additional scattered low-attenuation nodules within the liver which appear to be cysts. Portal Vein: Normal hepatopetal flow with monophasic waveform. Gallbladder: Normally distended gallbladder with no stones or wall thickening. CBD: 0.4 cm Pancreas: Normal size and echogenicity. Right kidney: 11.9 cm in length. Normal size kidney. Cortical lobulated cyst measures 1.2 x 1.5 cm from the lower pole. No obstruction or solid mass identified. Aorta and IVC: Unremarkable abdominal aorta and IVC. No ascites. US/US liver [id number] IMPRESSION: 1. Normal gallbladder. 2. Moderately enlarged liver. Hyperechoic liver mass measures 5.6 x 4.2 x 4.4 cm. This may be hepatic hemangioma but is not been previously seen. Mucinous ne oplasm also within the differential. PET/CT has been ordered. 3. Lobulated cyst lower pole RIGHT kidney, 1.5 cm.
--- NOTE | 2025-01-15 11:00 | PETR_ITS ---
PROCEDURE INFORMATION: Exam: PET/CT Skull Base to Mid-thigh Exam date and time: 01/15/2025 11:53 AM Age: 69 years old Clinical indication: Condition or disease; Primary cancer: Rul lung cancer, renal cancer; Follow-up oncological assessment; Prior surgery; Surgery date: <1 month; Surgery type: Brain resection; Rul lung cancer, left renal cancer, new brain met, HX melanoma; Additional info: Non-small cell lung cancer LABS AND CLINICAL REPORTS: Glucose: 77 mg/dl Treatment strategy for malignancy (PET staging): Restaging (PS) TECHNIQUE: Imaging protocol: Following at least four-hour fasting and following the injection of radiopharmaceutical, low dose CT images were obtained. Then, PET images were obtained. Attenuation corrected images were constructed using the CT scan. Fused images of PET and CT were reviewed. The standardized uptake values (SUV) reported below are maximum values within a region of interest, expressed in gm/ml. Exam includes orbital meatal line to mid-thigh. SUV normalization method: BodyWeight Radiopharmaceutical: 11 mCi F-18 FDG (Fluorodeoxyglucose), IV. Time of imaging post radiopharmaceutical administration: 48 minutes Injection site: left ac COMPARISON: 1. PT PET skull to thigh INIT [id number] 02/25/2024 2:[address] dated 10/15/2024. FINDINGS: Brain: 5.1 cm photopenic defect within the right temporal lobe. There has been a right-sided pterional/temporal craniotomy and tumor resection. Salivary glands: Increased uptake of an ill-defined soft tissue nodule within the left parotid gland measuring approximately 1.2 cm in long axis. Maximum SUV is 12.2, previously 3.6 in 2023. Pharynx: Mildly increased FDG uptake within the palatine tonsils, [id number], nonspecific. Maximum SUV 4.1. Larynx: Mildly increased FDG uptake within the larynx, likely artifactually increased due to use. No underlying correlating lesion. Lungs, pleura and trachea: Compared to the prior PET-CT from 2023, there has been interval resolution of previously noted FDG avid nodule in the periphery of the left lower lobe. There is residual nodular scarring, unchanged compared to the prior chest CT. A 1.0 cm nodule in the lateral aspect of the left lower lobe (series 202, image 152) is not FDG avid. There is nonspecific increased FDG uptake within the medial aspect of the right lower lobe, maximum SUV 3.9, without an underlying correlating nodule. There is mild heterogeneity and ground-glass attenuation at this region (series 202, image 152). 4 mm solid nodule just superior to this area of ground-glass attenuation is unchanged compared to the prior study (series 202, image 142). Right basilar scarring and volume loss. Heart: Normal physiologic uptake. Mediastinal space: No abnormal uptake. Liver: Ill-defined FDG avid right hepatic lobe mass centered within the medial aspect of segment VIII measuring approximately 6.5 x 4.6 cm, with maximum SUV of 11.1. This is new since the prior PET-CT from 2023 and increased in size since the prior chest CT from 10/23/2024. Gallbladder and biliary ducts: No abnormal uptake. Pancreas: No abnormal uptake. Spleen: No abnormal uptake. Adrenal glands: Nonspecific mildly increased FDG uptake within the medial limb of the left adrenal gland, maximum SUV 3.6. This corresponds to an area of adenomatous hyperplasia. No discrete suspicious lesion is noted. Kidneys and ureters: Normal physiologic uptake. Status post left nephrectomy. No abnormal FDG uptake in the nephrectomy bed. Stomach and bowel: No abnormal uptake. Colonic diverticulosis. Vasculature: No abnormal uptake. Lymph nodes: FDG avid mildly enlarged prevascular lymph node (series 202, image 128), maximum SUV 4.3. There is also nonspecific subcarinal lymphadenopathy, maximum SUV 4.2. Skeleton: No abnormal uptake in the visualized axial and appendicular skeleton. Soft tissues: No abnormal uptake in the visualized head, neck, chest, abdomen, pelvis, and extremities. Stable 4.4 cm left axillary lipoma. PET/PET skull to thigh SUBS [id number] IMPRESSION: 1. Ill-defined FDG avid 6.5 cm right hepatic lobe metastatic lesion, new since the prior PET-CT from 2023 and increased in size since the prior chest CT from 10/23/2024. 2. Significantly increased FDG avidity of the left parotid gland nodule, suspicious for metastasis. 3. Photopenic defect within the right temporal lobe, likely related to craniotomy and tumor resection. For assessment of recurrent neoplasm, contrast-enhanced MRI of the brain is more sensitive. 4. New increased FDG uptake in the medial right lower lobe without an underlying nodule and corresponding to an area of heterogeneity and ground-glass. While this may be infectious/inflammatory, underlying metastasis/neoplasm is not excluded. Close attention on follow-up imaging is recommended. 5. Complete resolution of previously noted medial left lower lobe FDG avid nodule. Persistent lateral left lower lobe solid 1.0 cm nodule is non FDG avid. 6. Nonspecific FDG avid mediastinal nodules, which may be reactive or metastatic. 7. Significantly increased FDG avidity of the left parotid gland nodule. 8. Mildly FDG avid left adrenal hyperplasia. Close attention on follow-up imaging is recommended.
== END 2025-02-01 23:59 | disposition home or self-care (01) ==
PROVIDERS: PCP Family Medicine; Visit Provider Radiology Radiation Oncology
DX: Z51.0 Encounter for antineoplastic radiation therapy (principal); C79.31 Secondary malignant neoplasm of brain; C34.11 Malignant neoplasm of upper lobe, right bronchus or lung
CPT/HCPCS: 76705; 77290; 77295; 77300; 77334; 77387; 77412; 78815; 99215; A9552

== ENCOUNTER 2025-02-12 10:15 | Oncology outpatient (recurring) (ONCR) | payer MEDICARE, SELFPAY ==
--- NOTE | 2025-02-02 11:45 | ONCRAD TMN_ITS ---
Radiation Oncology Weekly Treatment Management Patient: Mono Boyer MR#: [id number] : 1955> Attending Physician: Dr. Carleen García Date of Service: 02/02/2025 Fractions: 2 out of 10 Referring Physician(s) : Diagnosis: C79.31 - Secondary malignant neoplasm of brain, Diagnosed 01/12/2025 (Active) C34.90 - Malignant neoplasm of unspecified part of unspecified bronchus or lung, Diagnosed 02/11/2024 (Active) Radiotherapy to date: Course: brain, Treatment Site: W [id number], Ref. ID: [id number], Energy: 15X, Dose/Fx (cGy): 300, #Fx: 2 / 10, Dose Correction (cGy): 0, Total Dose Delivered (cGy): 600, Start Date: 02/01/2025, Elapsed Days: 1 Reason for visit: The patient is being seen today as part of their regularly scheduled weekly on treatment visits to assess for acute toxicities from radiotherapy. Review of Systems: Patient had a mild headache around the incision site yesterday Vital Signs: Performed on 02/02/2025 11:28 AM BMI - 22.734 kg/m2, Height - 71 in, Weight - 163 lbs, Temperature - 96.8 f, Pulse - 69 /min, Respiration - 18 /min, O2 Sat - 97 %, Pain - 0, Fatigue - 0 and BP - 134/ 90 mm(hg). Physical Exam: No changes on exam Imaging: Radiation therapy imaging related to accurate target localization (i.e. KV, MV and CBCT) was reviewed. Appropriate changes, if any, were made to ensure treatment accuracy. Plan: Will continue with his treatments as planned. He did declare that 98% of his life has been happy however these last 2% which is currently now he is not happy. He is still recovering from his surgery. I did encourage him to take a Tylenol when he gets home and take 1 tomorrow before his treatment. Signed by: Dr. Carleen García 02/02/2025 11:43:25 AM
--- NOTE | 2025-02-09 12:49 | ONCRAD TMN_ITS ---
Radiation Oncology Weekly Treatment Management Patient: Red Villareal MR#: [id number] : 1955 Attending Physician: Dr. Tucker Charles Date of Service: 02/09/2025 Referring Physician(s) : Diagnosis: C79.31 - Secondary malignant neoplasm of brain, Diagnosed 01/12/2025 (Active) C34.90 - Malignant neoplasm of unspecified part of unspecified bronchus or lung, Diagnosed 02/11/2024 (Active) Radiotherapy to date: Course: brain, Treatment Site: W [id number], Ref. ID: [id number], Energy: 15X, Dose/Fx (cGy): 300, #Fx: 7 / 10, Dose Correction (cGy): 0, Total Dose Delivered (cGy): 2,100, Start Date: 02/01/2025, Elapsed Days: 8 Reason for visit: The patient is being seen today as part of their regularly scheduled weekly on treatment visits to assess for acute toxicities from radiotherapy. Review of Systems: He felt ??? blah??? last week and then felt well all weekend and now feeling the same this week. Not on steroids. He was seen here by Dr. Lee for liver bx of lesion in liver seen on 02/2025 PET/CT. He felt that it was too risky if a complication occurred here and he is now scheduled for a liver bx in [facility] next week. Eating ok. Up 4 x with nocturia. Vital Signs: Performed on 02/09/2025 11:10 AM BMI - 22.985 kg/m2 (high), Height - 71 in, Weight - 164.8 lbs, Temperature - 96.1 f, Pulse - 57 /min (low), Respiration - 16 /min, O2 Sat - 96 %, Pain - 0, Fatigue - 0 and BP - 129/ 84 mm(hg). Physical Exam: Imaging: Radiation therapy imaging related to accurate target localization (i.e. KV, MV and CBCT) was reviewed. Appropriate changes, if any, were made to ensure treatment accuracy. Plan: good tolerance of treatment. Will complete treatment 02/12/2025. He will return to med onc for ongoing Fu and discussion of outcome of planned liver bx. Signed by: Dr. Tucker Charles 02/09/2025 12:48:30 PM
--- NOTE | 2025-02-12 17:10 | N.ONRD TS_ITS ---
Radiation Oncology Treatment Summary Patient: Mono>Rosalind MR#: [id number] : 1955> Age: 69> Sex: Male Dictated by: Dr. Tucker Charles Date of Service: 02/12/2025 Referring Physician(s) : Diagnosis: C79.31 - Secondary malignant neoplasm of brain, Diagnosed 01/12/2025 (Active) C34.90 - Malignant neoplasm of unspecified part of unspecified bronchus or lung, Diagnosed 02/11/2024 (Active) Radiotherapy to Date: Course: brain, Treatment Site: W [id number], Ref. ID: [id number], Energy: 15X, Dose/Fx (cGy): 300, #Fx: 10 / 10, Dose Correction (cGy): 0, Total Dose Delivered (cGy): 3,000, Start Date: 02/01/2025, End Date: 02/12/2025, Elapsed Days: 11 Treatment Site: LT Lung SBRT, Ref. ID: [id number], Energy: 6X, Dose/Fx (cGy): 1,200, #Fx: 4 / 4, Dose Correction (cGy): 0, Total Dose Delivered (cGy): 4,800, Start Date: 03/23/2024, End Date: 03/26/2024, Elapsed Days: 3 Clinical Summary: The patient tolerated RT well. He did not require steroids while on treatment. He had no significant hair loss or skin changes while on treatment. While he had no SHAH,N or V while on treatment he did feel ???blah??? from which he recovered while not being treated over the weekend. PET/CT 02/2025 was reviewed. There was hypermetabolic mass with central necrosis in the central liver c/w metastatic disease progression. Dr Lee in IR here felt risk was too high for bx here. He will now go [facility] for eval for biopsy. Following this he will return to med onc. Plan: End of treatment toda Follow up in [place]. Med onc follow up after biopsy of liver lesion in [place]. Signed by: Dr. Tucker Charles>02/12/2025 5:08:16 PM <<Signature on File>>
== END 2025-03-03 23:59 | disposition home or self-care (01) ==
PROVIDERS: PCP Family Medicine; Visit Provider Radiology Radiation Oncology
DX: Z51.0 Encounter for antineoplastic radiation therapy (principal); C79.31 Secondary malignant neoplasm of brain; C34.11 Malignant neoplasm of upper lobe, right bronchus or lung; C78.7 Secondary malignant neoplasm of liver and intrahepatic bile duct
CPT/HCPCS: 77336; 77387; 77412; 99024

== ENCOUNTER → 2025-03-17 11:52 | Outpatient (BNVA) | payer MEDICARE, SELFPAY | PROVIDERS: PCP Family Medicine; Referring Provider Internal Medicine Medical Oncology; Visit Provider Surgery | DX: Z95.828 Presence of other vascular implants and grafts (principal) | CPT/HCPCS: 99204 ==

== ENCOUNTER 2025-03-22 05:49 | Day surgery (SDC) | payer MEDICARE, SELFPAY ==
--- NOTE | 2025-03-21 08:33 | P.ANESASSM_ITS ---
Pre-Anesthetic Assessment Height/Weight: Height 5 ft 11 in Preop Diagnosis: metastatic adenocarcinoma Operation Date: 03/22/25 07:00 Proposed Procedures p Portacath Placement 07166 Z95.828 C34.11 D36.9 C79.31(Not Applicable) - Scott Gusman MD Was Beta Jaden taken within 24 hours: N/A Was Clonidine taken within 24 hours: N/A Social No alcohol and No tobacco Exam alert, oriented x 3, clear to auscultation bilaterally and regular rate & rhythm Airway Submandibular: within normal limits Cervical ROM: within normal limits Mallampati: Class III Comments: Comments: edentulous Anesthetic Plan ASA status: 3 Anesthesia: MAC Other: Initially diagnosed with non-small cell cancer of the right upper lobe. S/p nephrectomy for mass in the left kidney Malignant melanoma with mets to the lungs. Poorly differentiated adenocarcinoma brain mass excision in dec. On chronic Feroz Denies any cardiac issues labs from today reviewed and acceptable for surgery Plan for MAC anesthesia Medications/Allergies Home Medications ?Medication ?Instructions ?Recorded ?Confirmed ?Last Taken ?Type lorazepam 1 mg tablet (Ativan) 1 mg PO DAILY PRN anxie ty #10 tabs 03/10/24 03/18/25 Unknown Rx levetiracetam 1,000 mg tablet 1,000 mg PO BID 12/30/24 03/18/25 03/18/25 History albuterol sulfate 90 mcg/actuation 2 puff inhalation Q 6H PRN 01/19/25 03/18/25 Unknown History aerosol inhaler Shortness Of Breath Or Wheez ing prochlorperazine maleate 10 mg 10 mg PO Q4H PRN mild n ausea #30 03/09/25 03/22/25 03/21/25 Rx tablet (Compazine) tabs lidocaine-prilocaine 2.5 %-2.5 % 1 applic topical .[employer] PLEX #30 grams 03/17/25 03/18/25 Unknown Rx topical cream Tylenol Ex Str Rapid Release 500 mg PO PRN PRN pain 03/22/25 03/21/25 History Allergies Allergy/AdvReac Type Severity Reaction Status Date / Time erythromycin base Allergy Intermediate ADR-Nausea Verified 03/18/25 14:22 fluticasone (From Advair Allergy Intermediate Unknown Verified 03/18/25 14:22 Diskus) salmeterol (From Advair Allergy Intermediate Unknown Verified 03/18/25 14:22 Diskus) [facility] Anesthesia Medical History Adenomatous rectal polyp Tubular adenoma Non-small cell lung cancer History of malignant melanoma Renal cell carcinoma COPD (chronic obstructive pulmonary disease) Surgical History Status post lobectomy of lung History of melanoma excision (11/14/22) Wide excision of melanoma in situ History of bronchoscopy (12/10/22) History of bronchoscopy (12/26/21) History of colonoscopy (01/16/23) History of nephrectomy (08/06/22) Left radical nephrectomy Family History Father , AT 48 Heart attack Mother , AT 83 Cancer Social History Smoking and tobacco/nicotine status: former use of tobacco/nicotine Quit status (tobacco/nicotine): has quit using Year quit tobacco: August 2022 Former quit date comment: smoked x40 years Alcohol intake: never Substance/Drug Use: never Marital status: Current occupational status: retired Data Anesthesia 03/22/25 06:10 03/22/25 06:10
[2025-03-22] VITALS (7 sets, daily range): BP systolic 107–138; BP diastolic 73–87; PULSE 63–91; RESP 14–18; TEMP 36.2–36.3; O2SAT 93–98; BMI 23.4
--- NOTE | 2025-03-22 06:04 | P.HPUD_ITS ---
Surgery/Procedure H&P Update DATE OF PROCEDURE: March 22, 2025 DATE H&P PERFORMED: 03/18/25 H&P UPDATE INFORMATION: I have reviewed H&P completed within last 30 days, I have examined patient prior to procedure, No changes to prior documentation, H&P is in [facility] EMR on date indicated and Risks and benefits of the procedure reviewed PLANNED PROCEDURE: Operation Date: 03/22/25 07:00 Proposed Procedures p Portacath Placement 87770 Z95.828 C34.11 D36.9 C79.31(Not Applicable) - Scott Gusman MD
[2025-03-22] MEDS: sodium chloride 0.9% 1,000 ML 30 ML IV (06:10)
[2025-03-22 06:24] LABS: Basophils # 0.1 10^3/uL (0.0-0.1); Basophils % 1.5 %; Eosinophils # 0.3 10^3/uL (0.0-0.8); Hematocrit 48.5 % (37-53); Lymphocytes # 1.3 10^3/uL (0.8-4.8); Lymphocytes % 19.5 %; Mean Corpuscular HGB Conc 32.2 g/dL (30-55); Mean Corpuscular Hemoglobin 29.7 pg (27-33); Mean Corpuscular Volume 92.4 fl (82-101); Mean Platelet Volume 9.1 fL (7.4-10.4); Monocytes # 0.5 10^3/uL (0.2-0.9); Neutrophils # 4.34 10^3/uL (1.8-7.7); Neutrophils % 66.5 %; Nucleated Red Blood Cells % 0 %; Platelet Count 228 10^3/cmm (157-399); Red Blood Count 5.25 10^6/uL (3.85-5.65); Red Cell Distribution Width 13.9 % (12.1-15.1); White Blood Count 6.52 10^3/uL (3.29-11.43)
[2025-03-22 07:06] LABS: Anion Gap 14.3 (5-19); Blood Urea Nitrogen 17 mg/dL (8-23); Carbon Dioxide 27 mmol/L (22-29); Chloride 103 mmol/L (98-107); Creatinine Clr Calc Pharmacy 73.5599; Glomerular Filtration Rate 73.9 mL/min (90-130); Glucose 96 mg/dL (65-115); Osmolality Calculated 291 mOsm/kg (285-295); Potassium 4.3 mmol/L (3.5-5.1); Sodium 140 mmol/L (136-145)
--- NOTE | 2025-03-22 07:07 | SC_ITS ---
WS: [id number] C-ARM RADIOGRAPHS CHEST; 5 IMAGES HISTORY: OR PICS COMPARISON: 02/11/2024 Intraoperative imaging during Port-A-Cath placement. Tip of the catheter terminates near the cavoatrial junction. Initial image demonstrates the catheter directed superiorly into the jugular vein. Catheter was repositioned. SC/C-arm FL for CVA [id number] IMPRESSION: Intraoperative imaging during Port-A-Cath placement.
[2025-03-22] MEDS: ceFAZolin 2,000 mg SDV 2000 MG IVP (07:08)
[2025-03-22] MEDS: lidocaine-epi 1% 20 mL INJ INJECTION (07:30)
[2025-03-22] MEDS: heparin, porcine 1,000 unit/mL INJ 10 mL 10000 UNIT IRRIGATION (07:30)
[2025-03-22] MEDS: BUPivacaine 0.25% INJ 10 mL INJECTION (07:30)
--- NOTE | 2025-03-22 07:57 | PM.OP ---
Operative Report Date of procedure: March 22, 2025 Pre-op diagnosis: Metastatic adenocarcinoma Post-op diagnosis: Same Post-op findings: Normal vascular anatomy of the right neck Surgeon: Scott Gusman MD Direct Sales Professional: JAKE BARBER STaff Estimated blood loss: 10 Brief History: This is a 69-year-old male who is here for a Port-A-Cath placement to receive immunotherapy for metastatic cancer. All recent benefits were discussed in the clinic and documented in my preop note. Procedure: Patient was brought into the OR, he was placed in a supine position, monitored anesthesia sedation was given. Timeout was conducted after the skin was prepped and draped in the usual sterile fashion. I then proceeded to identify the right IJ vein with ultrasound, I infiltrated local anesthesia on top of the vein. I then proceeded to cannulate the vein under direct ultrasound guidance using an 18-gauge needle, the needle tip was seen entering the vein and immediate return of blood was noted. A wire was advanced through the needle and the needle was removed. The position of the wire was verified with ultrasound and fluoroscopy. The wire was then fixed to the drapes. I then placed my attention to the chest, local anesthesia was infiltrated in the previously marked area on the chest and then a tract connecting the chest to the wire insertion site in the neck. I then proceeded to make a 3.5 cm incision in the right upper chest, the incision was deepened to subcutaneous tissue with electrocautery and electrocautery was used to create the subcutaneous pocket to house the Port-A-Cath. I then proceeded to use a hemostat to create a tunnel from the chest wound to the neck. I then proceeded to make a 0.5 cm incision at the level of the wire insertion site in the neck. Hemostasis was verified. I then placed the Port-A-Cath in the pocket and tunneled the catheter using the provided tunneler. The catheter was cut to appropriate length under fluoroscopy guidance and then flushed. I then proceeded to insert an introducer with a peel-off sheath over the wire under direct fluoroscopic guidance. I then remove the wire and the introducer leaving the peel-off sheath in place. The catheter was then advanced through the peel-off sheath and the peel-off sheath was removed leaving the catheter in place. Fluoroscopy showed evidence of Adequate catheter position. I then proceeded to access the port; the port was retrieving blood and flushing fine, I then hep-locked the catheter. Hemostasis was verified. The wound was closed in layers using #3-0 Vicryl for the subcutaneous tissue and #4 Monocryl for the skin. Dermabond was applied. At the end of the procedure all counts were correct. The patient tolerated well the procedure and was transferred to the PACU in stable condition.
--- NOTE | 2025-03-22 09:13 | ANE.PACU2 ---
Inpatient post-anesthesia follow up: Airway intact: Yes Vital signs: Temperature 97.2 F Pulse Rate 63 Respiratory Rate 18 Blood Pressure 138/85 Pulse Oximetry 98 Oxygen Delivery Me thod Room Air Oxygen Flow Rate Fraction of Inspir ed Oxygen Hydration adequate: Yes Nausea and vomiting: No Pain level: 1 Mental status: Baseline
[2025-03-22 10:00] LABS: Thyroid Stimulating Hormone 1.06 uIU/mL (0.27-4.20)
[2025-03-22 10:31] LABS: Alanine Aminotransferase 20 U/L (0-41); Alkaline Phosphatase 91 U/L (40-130); Aspartate Amino Transferase 22 U/L (0-40); Globulin 2.8 g/dL (1.3-4.6); Total Bilirubin 0.4 mg/dL (0.15-1.2); Total Protein 6.8 g/dL (6.6-8.7)
[2025-03-22 10:32] LABS: Potassium 4.3 mmol/L (3.5-5.1)
[2025-03-22 10:33] LABS: Anion Gap 14.3 (5-19); Blood Urea Nitrogen 17 mg/dL (8-23); Carbon Dioxide 27 mmol/L (22-29); Chloride 103 mmol/L (98-107); Creatinine Clr Calc Pharmacy 73.5599; Glomerular Filtration Rate 73.9 mL/min (90-130); Glucose 96 mg/dL (65-115); Osmolality Calculated 291 mOsm/kg (285-295); Sodium 140 mmol/L (136-145)
== END 2025-03-22 09:13 | disposition home or self-care (01) ==
PROVIDERS: Internal Medicine Medical Oncology; Student in an Organized Health Care Education/Training Program; PCP Family Medicine; Visit Provider Surgery
PROC: (CPT 36561; principal; 2025-03-22 07:00)
DX: C34.90 Malignant neoplasm of unspecified part of unspecified bronchus or lung (principal); C71.9 Malignant neoplasm of brain, unspecified; J44.9 Chronic obstructive pulmonary disease, unspecified; Z87.891 Personal history of nicotine dependence; Z90.5 Acquired absence of kidney; Z85.841 Personal history of malignant neoplasm of brain
CPT/HCPCS: 36561; 36415; 76000; 77001; 80048; 80053; 84443; 85025; C1788; J0690; J1644; J2704; J3010; J3490; J7030; J9999

== ENCOUNTER 2025-03-23 07:45 | Oncology outpatient (recurring) (ONCR) | payer MEDICARE, SELFPAY ==
[2025-03-23] MEDS: pembrolizumab 200 MG in sodium chloride 0.9% 250 ML 516 MG IV (10:39)
[2025-03-23 10:56] LABS: Hepatitis B Core AB, Total Non-Reactive (Nonreactive); Hepatitis B Surface AB < 3.5 (11.5-1000); Hepatitis B Surface Antigen Non-Reactive (Nonreactive)
[2025-03-23 11:24] VITALS: BP 130/76; PULSE 76; RESP 16; O2SAT 96
== END 2025-03-23 23:59 | disposition home or self-care (01) ==
PROVIDERS: Nurse Practitioner Family; PCP Family Medicine; Visit Provider Radiology Radiation Oncology
DX: Z53.9 Procedure and treatment not carried out, unspecified reason; Z51.12 Encounter for antineoplastic immunotherapy; C64.2 Malignant neoplasm of left kidney, except renal pelvis; C34.11 Malignant neoplasm of upper lobe, right bronchus or lung; C22.7 Other specified carcinomas of liver; F17.200 Nicotine dependence, unspecified, uncomplicated; D03.59 Melanoma in situ of other part of trunk; R31.29 Other microscopic hematuria; R35.1 Nocturia; Z79.899 Other long term (current) drug therapy
CPT/HCPCS: 86705; 86706; 87340; 96413; 99215; A4222; J7050; J9271

== ENCOUNTER 2025-03-30 12:07 | Oncology outpatient (recurring) (ONCR) | payer MEDICARE, SELFPAY ==
[2025-03-30 12:28] LABS: Basophils # 0.1 10^3/uL (0.0-0.1); Basophils % 1.4 %; Eosinophils # 0.2 10^3/uL (0.0-0.8); Eosinophils % 3.6 %; Hematocrit 44.8 % (37-53); Lymphocytes # 1.4 10^3/uL (0.8-4.8); Lymphocytes % 21.8 %; Mean Corpuscular HGB Conc 33.3 g/dL (30-55); Mean Corpuscular Hemoglobin 29.3 pg (27-33); Mean Platelet Volume 8.5 fL (7.4-10.4); Monocytes # 0.7 10^3/uL (0.2-0.9); Monocytes % 11.5 %; Neutrophils # 3.94 10^3/uL (1.8-7.7); Neutrophils % 61.2 %; Nucleated Red Blood Cells % 0 %; Platelet Count 214 10^3/cmm (157-399); Red Blood Count 5.09 10^6/uL (3.85-5.65); Red Cell Distribution Width 13.4 % (12.1-15.1); White Blood Count 6.43 10^3/uL (3.29-11.43)
[2025-03-30 12:45] LABS: Alanine Aminotransferase 19 U/L (0-41); Albumin Level 4.1 g/dL (3.5-5.2); Alkaline Phosphatase 105 U/L (40-130); Anion Gap 13.4 (5-19); Aspartate Amino Transferase 21 U/L (0-40); Blood Urea Nitrogen 20 mg/dL (8-23); Calcium 9.5 mg/dL (8.5-10.5); Carbon Dioxide 26 mmol/L (22-29); Chloride 103 mmol/L (98-107); Globulin 2.9 g/dL (1.3-4.6); Glomerular Filtration Rate 73.9 mL/min (90-130); Glucose 60 mg/dL (65-115); Osmolality Calculated 286 mOsm/kg (285-295); Potassium 4.4 mmol/L (3.5-5.1); Sodium 138 mmol/L (136-145); Total Bilirubin 0.4 mg/dL (0.15-1.2)
== END 2025-04-03 23:59 | disposition home or self-care (01) ==
LOC: ONCMED 12:07
PROVIDERS: Nurse Practitioner Family; PCP Family Medicine; Visit Provider Radiology Radiation Oncology
DX: C34.11 Malignant neoplasm of upper lobe, right bronchus or lung (principal)
CPT/HCPCS: 36591; 80053; 85025

== ENCOUNTER → 2025-04-06 09:08 | Outpatient (BNVA) | payer MEDICARE, SELFPAY | PROVIDERS: PCP Family Medicine; Visit Provider Surgery | DX: C79.31 Secondary malignant neoplasm of brain (principal) | CPT/HCPCS: 99213 ==

== ENCOUNTER 2025-04-13 13:00 | Oncology outpatient (recurring) (ONCR) | payer MEDICARE, SELFPAY ==
[2025-04-12 13:38] LABS: Basophils # 0.1 10^3/uL (0.0-0.1); Basophils % 1.4 %; Eosinophils # 0.1 10^3/uL (0.0-0.8); Eosinophils % 1.7 %; Hematocrit 42.5 % (37-53); Lymphocytes % 17.4 %; Mean Corpuscular HGB Conc 33.9 g/dL (30-55); Mean Corpuscular Hemoglobin 29.8 pg (27-33); Mean Corpuscular Volume 87.8 fl (82-101); Mean Platelet Volume 8.7 fL (7.4-10.4); Monocytes # 0.5 10^3/uL (0.2-0.9); Monocytes % 9.1 %; Neutrophils # 4.14 10^3/uL (1.8-7.7); Neutrophils % 70.1 %; Nucleated Red Blood Cells % 0 %; Platelet Count 210 10^3/cmm (157-399); Red Blood Count 4.84 10^6/uL (3.85-5.65); Red Cell Distribution Width 13.4 % (12.1-15.1); White Blood Count 5.91 10^3/uL (3.29-11.43)
[2025-04-12 14:10] LABS: Alanine Aminotransferase 15 U/L (0-41); Alkaline Phosphatase 87 U/L (40-130); Anion Gap 15.9 (5-19); Aspartate Amino Transferase 18 U/L (0-40); Blood Urea Nitrogen 20 mg/dL (8-23); Calcium 9.1 mg/dL (8.5-10.5); Carbon Dioxide 23 mmol/L (22-29); Chloride 105 mmol/L (98-107); Globulin 2.6 g/dL (1.3-4.6); Glomerular Filtration Rate 83.4 mL/min (90-130); Glucose 127 mg/dL (65-115); Osmolality Calculated 294 mOsm/kg (285-295); Potassium 3.9 mmol/L (3.5-5.1); Sodium 140 mmol/L (136-145); Thyroid Stimulating Hormone 0.92 uIU/mL (0.27-4.20); Total Bilirubin 0.5 mg/dL (0.15-1.2); Total Protein 6.6 g/dL (6.6-8.7)
[2025-04-13] MEDS: pembrolizumab 200 MG in sodium chloride 0.9% 250 ML 516 MG IV (13:50)
--- NOTE | 2025-04-13 14:55 | XRR_ITS ---
PROCEDURE INFORMATION: Exam: XR Right Hip Exam date and time: 04/13/2025 3:11 PM Age: 69 years old Clinical indication: Hip pain; Right hip; Additional info: New shoulder and hip pain TECHNIQUE: Imaging protocol: Radiologic exam of the right hip. Views: 1 view hip with pelvis when performed. COMPARISON: CT chest abdpel w/*[id number] 07/15/2023 9:48 AM FINDINGS: Bones/joints: No acute fracture or dislocation. Right hip demonstrates up to mild DJD. Soft tissues: Unremarkable. XR/XR hip RT 2-3V wo/w pel* [id number] IMPRESSION: No acute findings. See above
--- NOTE | 2025-04-13 14:55 | XRR_ITS ---
PROCEDURE INFORMATION: Exam: XR Right Shoulder Exam date and time: 04/13/2025 3:11 PM Age: 69 years old Clinical indication: Pain; Shoulder; Right; Prior surgery; Surgery date: 1-6 months; Surgery type: Portacath; Additional info: New shoulder and hip pain TECHNIQUE: Imaging protocol: Radiologic exam of the right shoulder. Views: 2 or more views. COMPARISON: CT chest w con* [id number] 10/15/2024 12:56 PM FINDINGS: Tubes, catheters and devices: Right chest port noted Bones/joints: Right shoulder demonstrates [id number] AC joint DJD and estimated mild glenohumeral DJD. No acute fracture or dislocation Soft tissues: Normal. XR/XR shoulder RT min 2V* [id number] IMPRESSION: No acute findings. See above
== END 2025-04-13 23:59 | disposition home or self-care (01) ==
PROVIDERS: Nurse Practitioner Family; PCP Family Medicine; Visit Provider Internal Medicine Medical Oncology
DX: Z53.9 Procedure and treatment not carried out, unspecified reason; Z51.12 Encounter for antineoplastic immunotherapy; C34.11 Malignant neoplasm of upper lobe, right bronchus or lung; M25.551 Pain in right hip; M25.511 Pain in right shoulder; D03.59 Melanoma in situ of other part of trunk
CPT/HCPCS: 36591; 73030; 73502; 80053; 84443; 85025; 99214; A4222; J7050; J9271

== ENCOUNTER → 2025-04-15 14:23 | Outpatient (BNVA) | payer MEDICARE, SELFPAY | PROVIDERS: PCP Family Medicine; Visit Provider Nurse Practitioner Family | DX: D48.5 Neoplasm of uncertain behavior of skin (principal); L21.8 Other seborrheic dermatitis; L81.4 Other melanin hyperpigmentation; D22.5 Melanocytic nevi of trunk; Z85.820 Personal history of malignant melanoma of skin; Z08 Encounter for follow-up examination after completed treatment for malignant neoplasm; Z85.828 Personal history of other malignant neoplasm of skin; Z09 Encounter for follow-up examination after completed treatment for conditions other than malignant neoplasm; Z87.2 Personal history of diseases of the skin and subcutaneous tissue | CPT/HCPCS: 99214 ==

== ENCOUNTER → 2025-04-28 09:34 | Outpatient (BNVA) | payer MEDICARE, SELFPAY | PROVIDERS: PCP Family Medicine; Visit Provider Nurse Practitioner Family | DX: L21.8 Other seborrheic dermatitis (principal); Z85.820 Personal history of malignant melanoma of skin; Z08 Encounter for follow-up examination after completed treatment for malignant neoplasm; Z85.828 Personal history of other malignant neoplasm of skin; D48.5 Neoplasm of uncertain behavior of skin; L57.0 Actinic keratosis | CPT/HCPCS: 11102; 17000; 99214 ==

== ENCOUNTER 2025-05-03 12:08 | Oncology outpatient (recurring) (ONCR) | payer MEDICARE, SELFPAY ==
[2025-05-03 12:42] LABS: Basophils # 0.1 10^3/uL (0.0-0.1); Basophils % 1.1 %; Eosinophils # 0.2 10^3/uL (0.0-0.8); Eosinophils % 1.8 %; Lymphocytes # 1.5 10^3/uL (0.8-4.8); Lymphocytes % 17.2 %; Mean Corpuscular HGB Conc 33.8 g/dL (30-55); Mean Corpuscular Hemoglobin 29.2 pg (27-33); Mean Corpuscular Volume 86.6 fl (82-101); Monocytes # 0.9 10^3/uL (0.2-0.9); Neutrophils # 6.04 10^3/uL (1.8-7.7); Neutrophils % 69.4 %; Nucleated Red Blood Cells % 0 %; Platelet Count 244 10^3/cmm (157-399); Red Blood Count 5.54 10^6/uL (3.85-5.65); Red Cell Distribution Width 13.3 % (12.1-15.1); White Blood Count 8.71 10^3/uL (3.29-11.43)
[2025-05-03 13:11] LABS: Alanine Aminotransferase 24 U/L (0-41); Albumin Level 4.2 g/dL (3.5-5.2); Alkaline Phosphatase 103 U/L (40-130); Anion Gap 17.2 (5-19); Aspartate Amino Transferase 22 U/L (0-40); Blood Urea Nitrogen 28 mg/dL (8-23); Calcium 9.8 mg/dL (8.5-10.5); Carbon Dioxide 24 mmol/L (22-29); Chloride 100 mmol/L (98-107); Globulin 2.8 g/dL (1.3-4.6); Glomerular Filtration Rate 59.9 mL/min (90-130); Glucose 99 mg/dL (65-115); Osmolality Calculated 290 mOsm/kg (285-295); Potassium 4.2 mmol/L (3.5-5.1); Sodium 137 mmol/L (136-145); Thyroid Stimulating Hormone 0.75 uIU/mL (0.27-4.20); Total Bilirubin 0.6 mg/dL (0.15-1.2)
== END 2025-05-03 23:59 | disposition home or self-care (01) ==
PROVIDERS: Nurse Practitioner Family; PCP Family Medicine; Visit Provider Internal Medicine Medical Oncology
DX: C34.11 Malignant neoplasm of upper lobe, right bronchus or lung (principal)
CPT/HCPCS: 36591; 80053; 84443; 85025

== ENCOUNTER 2025-05-04 13:08 | Oncology outpatient (recurring) (ONCR) | payer MEDICARE, SELFPAY ==
[2025-05-04] MEDS: pembrolizumab 200 MG in sodium chloride 0.9% 250 ML 516 MG IV (15:03)
[2025-05-04 15:43] VITALS: BP 122/84; PULSE 80; TEMP 36.4; O2SAT 94
== END 2025-05-04 23:59 | disposition home or self-care (01) ==
PROVIDERS: PCP Family Medicine; Visit Provider Internal Medicine Medical Oncology
DX: Z51.12 Encounter for antineoplastic immunotherapy (principal); C34.11 Malignant neoplasm of upper lobe, right bronchus or lung; C34.90 Malignant neoplasm of unspecified part of unspecified bronchus or lung; C64.9 Malignant neoplasm of unspecified kidney, except renal pelvis; M25.511 Pain in right shoulder; M54.2 Cervicalgia; R53.83 Other fatigue; K59.00 Constipation, unspecified; F17.200 Nicotine dependence, unspecified, uncomplicated; D03.59 Melanoma in situ of other part of trunk; Z79.899 Other long term (current) drug therapy
CPT/HCPCS: 96413; 99215; A4222; J7050; J9271

== ENCOUNTER 2025-05-25 12:00 | Oncology outpatient (recurring) (ONCR) | payer MEDICARE, SELFPAY ==
[2025-05-24 11:16] LABS: Hematocrit 41.7 % (37-53); Hemoglobin 14.20 g/dL (11.27-16.99); Mean Corpuscular HGB Conc 34.1 g/dL (30-55); Mean Corpuscular Hemoglobin 29.6 pg (27-33); Mean Corpuscular Volume 86.9 fl (82-101); Nucleated Red Blood Cells % 0 %; Platelet Count 217 10^3/cmm (157-399); Red Blood Count 4.80 10^6/uL (3.85-5.65); White Blood Count 6.17 10^3/uL (3.29-11.43)
[2025-05-24 11:46] LABS: Alanine Aminotransferase 30 U/L (0-41); Albumin Level 3.7 g/dL (3.5-5.2); Alkaline Phosphatase 84 U/L (40-130); Anion Gap 16.0 (5-19); Aspartate Amino Transferase 17 U/L (0-40); Blood Urea Nitrogen 22 mg/dL (8-23); Calcium 8.9 mg/dL (8.5-10.5); Carbon Dioxide 23 mmol/L (22-29); Chloride 106 mmol/L (98-107); Globulin 2.3 g/dL (1.3-4.6); Glucose 104 mg/dL (65-115); Osmolality Calculated 296 mOsm/kg (285-295); Potassium 4.0 mmol/L (3.5-5.1); Sodium 141 mmol/L (136-145); Thyroid Stimulating Hormone 0.58 uIU/mL (0.27-4.20); Total Protein 6.0 g/dL (6.6-8.7)
--- NOTE | 2025-05-25 11:42 | XRR_ITS ---
PROCEDURE INFORMATION: Exam: XR Chest Exam date and time: 05/25/2025 11:49 AM Age: 69 years old Clinical indication: Cough; Prior surgery; Surgery date: 6+ months; Surgery type: RT lung removal, port; HX of lung cancer TECHNIQUE: Imaging protocol: Radiologic exam of the chest. Views: 2 views. COMPARISON: CT chest w con* [id number] 10/15/2024 12:56 PM FINDINGS: Tubes, catheters and devices: MediPort catheter in place via a right internal jugular approach. Distal tip extends to the mid superior vena cava at the level of the right hilum. Lungs: Postsurgical changes are present at the right hilum. The lungs are hyperexpanded. Mild patchy increased density is present within the medial aspect of the left lower lobe. Findings may correspond to scarring or underlying interstitial lung change. Subtle developing pneumonia is considered but less likely. Minimal patchy airspace opacity and scarring is present within the lateral aspect of the right lower lobe. This more had the appearance of scarring on prior CT scan of the chest. Faint 8 mm nodule is present within the left lower lobe. This was present on prior CT scan. Additional nodular density projecting over the right lower lobe and left lower lobe more likely corresponds to overlying nipple shadows. Pleural spaces: Blunting of the right costovertebral angle appears unchanged. Findings compatible with previously seen small posterior pleural effusion at the right lung base. Findings appear similar compared to the prior CT scan. Heart/Mediastinum: Heart size is within normal limits. Bones/joints: Multilevel degenerative changes are present throughout the spine. XR/XR chest 2V* [id number] IMPRESSION: 1. Minimal patchy airspace opacity is present within the right lower lobe and within the medial aspect of the left lower lobe. Findings may correspond to underlying interstitial lung change and scarring. Early developing pneumonia is not fully excluded. 2. Small 8 mm nodule within the left lower lobe appears unchanged compared to the prior CT scan. 3. Small right pleural effusion appears similar compared to the prior CT scan.
[2025-05-25] MEDS: pembrolizumab 200 MG in sodium chloride 0.9% 250 ML 516 MG IV (12:47)
[2025-05-25 13:22] VITALS: BP 107/65; PULSE 60; RESP 17; TEMP 36.7; O2SAT 98
== END 2025-05-25 23:59 | disposition home or self-care (01) ==
PROVIDERS: Nurse Practitioner Family; PCP Family Medicine; Visit Provider Internal Medicine Medical Oncology
DX: Z53.9 Procedure and treatment not carried out, unspecified reason; Z51.12 Encounter for antineoplastic immunotherapy; C34.11 Malignant neoplasm of upper lobe, right bronchus or lung; Z79.899 Other long term (current) drug therapy; R05.9 Cough, unspecified; C64.2 Malignant neoplasm of left kidney, except renal pelvis; R91.8 Other nonspecific abnormal finding of lung field; J90 Pleural effusion, not elsewhere classified; M47.9 Spondylosis, unspecified; F17.200 Nicotine dependence, unspecified, uncomplicated; D03.59 Melanoma in situ of other part of trunk; Z96.89 Presence of other specified functional implants; C78.7 Secondary malignant neoplasm of liver and intrahepatic bile duct; Z90.5 Acquired absence of kidney
CPT/HCPCS: 36591; 71046; 80053; 84443; 85025; 96413; 99214; A4222; J7050; J9271

== ENCOUNTER → 2025-05-26 08:26 | Outpatient (BNVA) | payer MEDICARE, SELFPAY | PROVIDERS: PCP Family Medicine; Visit Provider Dermatology | DX: D22.39 Melanocytic nevi of other parts of face (principal); L82.1 Other seborrheic keratosis; Z85.820 Personal history of malignant melanoma of skin; Z08 Encounter for follow-up examination after completed treatment for malignant neoplasm; Z85.828 Personal history of other malignant neoplasm of skin; C44.612 Basal cell carcinoma of skin of right upper limb, including shoulder | CPT/HCPCS: 17261; 99213 ==

== ENCOUNTER 2025-06-02 07:26 | Oncology outpatient (recurring) (ONCR) | payer MEDICARE, SELFPAY ==
[2025-06-02] MEDS: iohexol 350 mg/mL 500 mL Btl (per mL) PO (08:45)
[2025-06-02] MEDS: iohexol 350 mg/mL 500 mL Btl (per mL) IV (08:45)
--- NOTE | 2025-06-02 08:45 | CT_ITS ---
WS: [id number] CT CHEST, ABDOMEN, AND PELVIS TECHNIQUE: Contrast-enhanced CT of the chest, abdomen, and pelvis with coronal and sagittal reformatted images. CLINICAL INFORMATION: restaging COMPARISON: CT chest 10/15/2024 DLP: 610.[address] scans at [facility] use at least one of these dose optimization techniques: automated exposure control; mA and/or kV adjustment per patient size (includes targeted exams where dose is matched to clinical indication); or iterative reconstruction. CT CHEST: Stable 9 mm LEFT lower lobe pulmonary nodule. Persistent reticulonodular opacities in the anterior RIGHT upper lobe has a chronic inflammatory appearance likely due to bronchiolitis. Stable volume loss in the RIGHT lung. No mediastinal or hilar lymphadenopathy. No axillary lymphadenopathy. Normal caliber thoracic aorta. Proximal main pulmonary arteries are normal. No axillary lymphadenopathy. Tiny esophageal hernia. CT ABDOMEN AND PELVIS: Previously described FDG-avid RIGHT hepatic metastasis. This measures approximately 6.1 x 5.1 cm. Today this demonstrates areas of surrounding parenchymal irregularity suspicious for progressive disease. Previously this measured approximately 5.7 x 4.2 cm on the prior PET CT however that was done without contrast. Regardless, this measures slightly larger today. Few hepatic cysts in the undersurface of the RIGHT hepatic lobe. Additional low-attenuation nodules in the undersurface of the RIGHT hepatic lobe are not cystic and indeterminate. Largest lesion measures 6.7 mm. Some of these lesions are new since the prior contrast-enhanced CT abdomen pelvis 01/29/2024. Recommend continued surveillance. Portal vein and splenic vein are patent. Normal spleen. Small esophageal hernia. Prior LEFT nephrectomy. A few tiny RIGHT renal cysts. No hydronephrosis in the RIGHT kidney. Celiac and SMA are patent. Mild prostate enlargement. Mild diffuse bladder wall thickening. Sigmoid diverticulosis. Mild lumbar curve. Prior LEFT nephrectomy. Stable LEFT adrenal hyperplasia CT/CT chest abdpel w/*[id number] IMPRESSION: 1. Previously described FDG-avid RIGHT hepatic metastasis measures slightly la rger today described above of a comparison to the prior PET/CT suspicious for p rogressive disease with areas of surrounding irregularity 2. Few incidental hepatic cysts undersurface of the RIGHT hepatic lobe however there are several small lesions which are indeterminant and too small to shahrzad cterize the largest measuring 6 mm. 3. Stable LEFT adrenal hyperplasia. 4. Stable LEFT nephrectomy. 5. No evidence of new or progressed metastatic disease in the chest. 6. Stable 9 mm LEFT lower lobe nodule. This is stable since the prior PET/CT 3 25
== END 2025-06-03 23:59 | disposition home or self-care (01) ==
PROVIDERS: PCP Family Medicine; Visit Provider Internal Medicine Medical Oncology
DX: C34.11 Malignant neoplasm of upper lobe, right bronchus or lung (principal); Z79.899 Other long term (current) drug therapy; C34.90 Malignant neoplasm of unspecified part of unspecified bronchus or lung
CPT/HCPCS: 71260; 74177; 96523

== ENCOUNTER 2025-06-15 09:27 | Oncology outpatient (recurring) (ONCR) | payer MEDICARE, SELFPAY ==
[2025-06-14 11:26] LABS: Hematocrit 40.6 % (37-53); Hemoglobin 13.70 g/dL (11.27-16.99); Mean Corpuscular HGB Conc 33.7 g/dL (30-55); Mean Corpuscular Hemoglobin 29.5 pg (27-33); Mean Corpuscular Volume 87.3 fl (82-101); Nucleated Red Blood Cells % 0 %; Platelet Count 182 10^3/cmm (157-399); Red Blood Count 4.65 10^6/uL (3.85-5.65); White Blood Count 5.30 10^3/uL (3.29-11.43)
[2025-06-14 12:05] LABS: Alanine Aminotransferase 22 U/L (0-41); Albumin Level 3.9 g/dL (3.5-5.2); Alkaline Phosphatase 69 U/L (40-130); Anion Gap 12.5 (5-19); Aspartate Amino Transferase 19 U/L (0-40); Blood Urea Nitrogen 14 mg/dL (8-23); Calcium 9.0 mg/dL (8.5-10.5); Carbon Dioxide 27 mmol/L (22-29); Chloride 103 mmol/L (98-107); Globulin 2.3 g/dL (1.3-4.6); Glucose 105 mg/dL (65-115); Osmolality Calculated 287 mOsm/kg (285-295); Potassium 4.5 mmol/L (3.5-5.1); Sodium 138 mmol/L (136-145); Thyroid Stimulating Hormone 1.44 uIU/mL (0.27-4.20); Total Protein 6.2 g/dL (6.6-8.7)
[2025-06-15] MEDS: pembrolizumab 200 MG in sodium chloride 0.9% 250 ML 516 MG IV (11:33)
== END 2025-06-15 23:59 | disposition home or self-care (01) ==
PROVIDERS: Nurse Practitioner Family; PCP Family Medicine; Visit Provider Internal Medicine Medical Oncology
DX: Z51.12 Encounter for antineoplastic immunotherapy (principal); C34.11 Malignant neoplasm of upper lobe, right bronchus or lung; C34.90 Malignant neoplasm of unspecified part of unspecified bronchus or lung; F17.200 Nicotine dependence, unspecified, uncomplicated; D03.59 Melanoma in situ of other part of trunk; Z79.899 Other long term (current) drug therapy; Z85.528 Personal history of other malignant neoplasm of kidney; Z90.5 Acquired absence of kidney
CPT/HCPCS: 36591; 80053; 84443; 85025; 96413; 99214; A4222; J7050; J9271

== ENCOUNTER 2025-07-27 09:40 | Oncology outpatient (recurring) (ONCR) | payer MEDICARE, SELFPAY ==
[2025-07-27 10:06] LABS: Hematocrit 38.7 % (37-53); Hemoglobin 13.10 g/dL (11.27-16.99); Mean Corpuscular HGB Conc 33.9 g/dL (30-55); Mean Corpuscular Hemoglobin 30.2 pg (27-33); Mean Corpuscular Volume 89.2 fl (82-101); Nucleated Red Blood Cells % 0 %; Platelet Count 177 10^3/cmm (157-399); Red Blood Count 4.34 10^6/uL (3.85-5.65); White Blood Count 6.11 10^3/uL (3.29-11.43)
[2025-07-27 10:41] LABS: Alanine Aminotransferase 14 U/L (0-41); Albumin Level 3.9 g/dL (3.5-5.2); Alkaline Phosphatase 78 U/L (40-130); Anion Gap 12.0 (5-19); Aspartate Amino Transferase 14 U/L (0-40); Blood Urea Nitrogen 20 mg/dL (8-23); Calcium 9.1 mg/dL (8.5-10.5); Carbon Dioxide 27 mmol/L (22-29); Chloride 102 mmol/L (98-107); Creatinine Clr Calc Pharmacy 79.1851; Globulin 2.5 g/dL (1.3-4.6); Glucose 100 mg/dL (65-115); Osmolality Calculated 287 mOsm/kg (285-295); Potassium 4.0 mmol/L (3.5-5.1); Sodium 137 mmol/L (136-145); Thyroid Stimulating Hormone 1.44 uIU/mL (0.27-4.20); Total Protein 6.4 g/dL (6.6-8.7)
[2025-07-27] MEDS: pembrolizumab 200 MG in sodium chloride 0.9% 250 ML 516 MG IV (12:13)
[2025-07-27 12:56] VITALS: BP 135/76; PULSE 74; RESP 17; TEMP 36.3; O2SAT 96
== END 2025-07-27 23:59 | disposition home or self-care (01) ==
PROVIDERS: Nurse Practitioner; PCP Family Medicine; Visit Provider Nurse Practitioner Family
DX: Z51.12 Encounter for antineoplastic immunotherapy (principal); C34.11 Malignant neoplasm of upper lobe, right bronchus or lung; C34.90 Malignant neoplasm of unspecified part of unspecified bronchus or lung; F17.210 Nicotine dependence, cigarettes, uncomplicated; D03.59 Melanoma in situ of other part of trunk; Z79.899 Other long term (current) drug therapy; Z90.5 Acquired absence of kidney; Z85.528 Personal history of other malignant neoplasm of kidney; Z71.6 Tobacco abuse counseling
CPT/HCPCS: 36591; 80053; 84443; 85025; 96413; 99214; A4222; J7050; J9271

== ENCOUNTER 2025-08-02 12:57 | Oncology outpatient (recurring) (ONCR) | payer MEDICARE, SELFPAY ==
[2025-08-02 13:25] LABS: Glucose Urine UA Negative (Normal); Nitrate Urine Negative (Negative); Specific Gravity, Urine 1.017 (1.005-1.030)
[2025-08-02 13:50] LABS: Add Urine Microscopic? YES; UA Manual Slide Review YES; UA Slide Review UA Slide Review Perf
== END 2025-08-03 23:59 | disposition home or self-care (01) ==
LOC: ONCMED 12:58
PROVIDERS: PCP Family Medicine; Visit Provider Nurse Practitioner Family
DX: C34.11 Malignant neoplasm of upper lobe, right bronchus or lung (principal); Z79.899 Other long term (current) drug therapy; C34.90 Malignant neoplasm of unspecified part of unspecified bronchus or lung
CPT/HCPCS: 81001

== ENCOUNTER → 2025-08-10 15:21 | Outpatient (BNVA) | payer MEDICARE, SELFPAY | PROVIDERS: PCP Family Medicine; Visit Provider Nurse Practitioner Family | DX: D18.01 Hemangioma of skin and subcutaneous tissue (principal); L82.1 Other seborrheic keratosis; Z85.820 Personal history of malignant melanoma of skin; Z08 Encounter for follow-up examination after completed treatment for malignant neoplasm; Z85.828 Personal history of other malignant neoplasm of skin | CPT/HCPCS: 99213 ==

== ENCOUNTER 2025-08-17 09:16 | Oncology outpatient (recurring) (ONCR) | payer MEDICARE, SELFPAY ==
[2025-08-17 10:13] LABS: Hematocrit 39.0 % (37-53); Hemoglobin 13.40 g/dL (11.27-16.99); Mean Corpuscular HGB Conc 34.4 g/dL (30-55); Mean Corpuscular Hemoglobin 31.0 pg (27-33); Mean Corpuscular Volume 90.3 fl (82-101); Nucleated Red Blood Cells % 0 %; Platelet Count 229 10^3/cmm (157-399); Red Blood Count 4.32 10^6/uL (3.85-5.65); White Blood Count 6.09 10^3/uL (3.29-11.43)
[2025-08-17 10:40] LABS: Alanine Aminotransferase 14 U/L (0-41); Albumin Level 4.0 g/dL (3.5-5.2); Alkaline Phosphatase 85 U/L (40-130); Anion Gap 14.2 (5-19); Aspartate Amino Transferase 16 U/L (0-40); Blood Urea Nitrogen 22 mg/dL (8-23); Calcium 8.9 mg/dL (8.5-10.5); Carbon Dioxide 26 mmol/L (22-29); Chloride 104 mmol/L (98-107); Creatinine Clr Calc Pharmacy 79.5770; Globulin 2.4 g/dL (1.3-4.6); Glucose 79 mg/dL (65-115); Osmolality Calculated 292 mOsm/kg (285-295); Potassium 4.2 mmol/L (3.5-5.1); Sodium 140 mmol/L (136-145); Thyroid Stimulating Hormone 0.63 uIU/mL (0.27-4.20); Total Protein 6.4 g/dL (6.6-8.7)
[2025-08-17] MEDS: pembrolizumab 200 MG in sodium chloride 0.9% 250 ML 516 MG IV (11:33)
[2025-08-17 12:05] VITALS: BP 137/84; PULSE 87; RESP 17; TEMP 36.2; O2SAT 98
== END 2025-08-17 23:59 | disposition home or self-care (01) ==
PROVIDERS: PCP Family Medicine; Visit Provider Nurse Practitioner Family
DX: Z51.12 Encounter for antineoplastic immunotherapy (principal); C34.11 Malignant neoplasm of upper lobe, right bronchus or lung; Z79.899 Other long term (current) drug therapy; C34.90 Malignant neoplasm of unspecified part of unspecified bronchus or lung; F17.210 Nicotine dependence, cigarettes, uncomplicated; D03.59 Melanoma in situ of other part of trunk; Z90.5 Acquired absence of kidney; Z85.528 Personal history of other malignant neoplasm of kidney
CPT/HCPCS: 36591; 80053; 84443; 85025; 96413; 99214; A4222; J7050; J9271

== ENCOUNTER → 2025-08-19 09:01 | Outpatient (BNVA) | payer MEDICARE, SELFPAY | PROVIDERS: PCP Family Medicine; Visit Provider Internal Medicine | DX: J43.9 Emphysema, unspecified (principal); C34.11 Malignant neoplasm of upper lobe, right bronchus or lung; Z79.69 Long term (current) use of other immunomodulators and immunosuppressants; Z87.891 Personal history of nicotine dependence; J44.9 Chronic obstructive pulmonary disease, unspecified | CPT/HCPCS: 99214; Q3014 ==

== ENCOUNTER 2025-09-01 10:46 | Outpatient (CLI) | payer MEDICARE, SELFPAY ==
--- NOTE | 2025-09-01 11:15 | CT_ITS ---
WS: [id number] CT HEAD WITH AND WITHOUT CONTRAST HISTORY: Recommended f/u CT in 6-8 weeks from 07/07 CT head TECHNIQUE: Noncontrast axial images obtained from the vertex to the skull base. Additional imaging performed in axial images status post IV contrast. Bone and soft tissue windows are reviewed. All CT scans at [facility] use at least one of these dose optimization techniques: automated exposure control; mA and/or kV adjustment per patient size (includes targeted exams where dose is matched to clinical indication); or iterative reconstruction. CONTRAST: Omnipaque 350; 100 mL IV. DLP: 2150.18 mGy.cm COMPARISON: 07/07/2025, 12/07/2024 No acute intracranial hemorrhage or edema. Postoperative cavity is noted involving the inferior RIGHT temporal lobe. There is a small amount of peripheral enhancement which is reidentified as compared to 07/07/2025. There has been slight but minimal progression of the amount of enhancement in the lateral resection site. Otherwise the extent of the edema in the cavity is unchanged. No additional areas of enhancement within the brain. Mild volume loss and cerebral atrophy. Dural venous sinuses are normally enhancing. Visualized [place] is unremarkable. Paranasal sinuses as visualized: Small mucous retention cyst in the LEFT maxillary sinus. Mastoid air cells: Clear. Calvarium and scalp: RIGHT temporal craniotomy. CT/CT head wo/w con [id number] IMPRESSION: 1. Status post RIGHT temporal lobe resection cavity is reidentified. 2. There is a small persistent area of peripheral enhancement along the latera l postoperative cavity. Very slight increase in the amount of enhancement. Resi dual tumor is not excluded. Recommend continued close serial follow-up evaluati on. If MRI is possible MRI with and without contrast would be very helpful. 3. RIGHT temporal craniotomy. 4. No additional areas of abnormal enhancement.
[2025-09-01] MEDS: iohexol 350 mg/mL 500 mL Btl (per mL) IV (11:54)
== END 2025-09-01 10:47 | disposition home or self-care (01) ==
LOC: RAD 10:56
PROVIDERS: PCP Family Medicine; Visit Provider Nurse Practitioner Family
DX: R93.0 Abnormal findings on diagnostic imaging of skull and head, not elsewhere classified (principal); Z98.890 Other specified postprocedural states; G31.89 Other specified degenerative diseases of nervous system; M27.40 Unspecified cyst of jaw
CPT/HCPCS: 70470

== ENCOUNTER 2025-09-01 11:37 | Oncology outpatient (recurring) (ONCR) | payer MEDICARE, SELFPAY | END 2025-09-03 23:59 | disposition home or self-care (01) | PROVIDERS: PCP Family Medicine; Visit Provider Nurse Practitioner Family | DX: C34.11 Malignant neoplasm of upper lobe, right bronchus or lung (principal); Z79.899 Other long term (current) drug therapy; C34.90 Malignant neoplasm of unspecified part of unspecified bronchus or lung | CPT/HCPCS: 96523 ==

== ENCOUNTER 2025-09-07 08:55 | Oncology outpatient (recurring) (ONCR) | payer MEDICARE, SELFPAY ==
[2025-09-07 09:19] LABS: Hematocrit 43.5 % (37-53); Hemoglobin 14.40 g/dL (11.27-16.99); Mean Corpuscular HGB Conc 33.1 g/dL (30-55); Mean Corpuscular Hemoglobin 30.0 pg (27-33); Mean Corpuscular Volume 90.6 fl (82-101); Nucleated Red Blood Cells % 0 %; Platelet Count 259 10^3/cmm (157-399); Red Blood Count 4.80 10^6/uL (3.85-5.65); White Blood Count 7.16 10^3/uL (3.29-11.43)
[2025-09-07 09:50] LABS: Alanine Aminotransferase 16 U/L (0-41); Albumin Level 4.2 g/dL (3.5-5.2); Alkaline Phosphatase 100 U/L (40-130); Anion Gap 15.2 (5-19); Aspartate Amino Transferase 16 U/L (0-40); Blood Urea Nitrogen 24 mg/dL (8-23); Calcium 8.9 mg/dL (8.5-10.5); Carbon Dioxide 25 mmol/L (22-29); Chloride 105 mmol/L (98-107); Creatinine Clr Calc Pharmacy 64.4944; Globulin 2.9 g/dL (1.3-4.6); Glucose 90 mg/dL (65-115); Osmolality Calculated 296 mOsm/kg (285-295); Potassium 4.2 mmol/L (3.5-5.1); Sodium 141 mmol/L (136-145); Thyroid Stimulating Hormone 1.69 uIU/mL (0.27-4.20); Total Protein 7.1 g/dL (6.6-8.7)
[2025-09-07] MEDS: pembrolizumab 200 MG in sodium chloride 0.9% 250 ML 516 MG IV (11:46)
[2025-09-07 12:23] VITALS: BP 118/81; PULSE 59; RESP 18; TEMP 36.6; O2SAT 94
== END 2025-09-07 23:59 | disposition home or self-care (01) ==
PROVIDERS: Internal Medicine Medical Oncology; PCP Family Medicine; Visit Provider Nurse Practitioner Family
DX: Z51.12 Encounter for antineoplastic immunotherapy (principal); C34.11 Malignant neoplasm of upper lobe, right bronchus or lung; F17.210 Nicotine dependence, cigarettes, uncomplicated; R93.0 Abnormal findings on diagnostic imaging of skull and head, not elsewhere classified; Z79.899 Other long term (current) drug therapy; Z90.2 Acquired absence of lung [part of]; Z90.5 Acquired absence of kidney; Z85.820 Personal history of malignant melanoma of skin; Z92.3 Personal history of irradiation; Z85.528 Personal history of other malignant neoplasm of kidney; Z85.118 Personal history of other malignant neoplasm of bronchus and lung
CPT/HCPCS: 80053; 84443; 85025; 96413; 99214; A4222; J7050; J9271

== ENCOUNTER 2025-09-27 08:13 | Outpatient (CLI) | payer MEDICARE, SELFPAY ==
--- NOTE | 2025-09-27 09:30 | CTR_ITS ---
PROCEDURE INFORMATION: Exam: CT Chest With Contrast; Diagnostic Exam date and time: 09/27/2025 9:37 AM Age: 70 years old Clinical indication: Condition or disease; Other: Non small cell lung with mets; Lung condition and disease; Cancer of the lung; Bilateral; Unspecified; Prior surgery; Surgery date: 6+ months; Surgery type: Left lower lobe, right upper lobe, port; Additional info: Restaging TECHNIQUE: Imaging protocol: Diagnostic computed tomography of the chest with contrast. Radiation optimization: All CT scans at this facility use at least one of these dose optimization techniques: automated exposure control; mA and/or kV adjustment per patient size (includes targeted exams where dose is matched to clinical indication); or iterative reconstruction. Contrast material: OMNI 350; Contrast volume: 100 ml; Contrast route: INTRAVENOUS (IV); COMPARISON: CT chest abdpel w/*[id number] 06/02/2025 8:42 AM RADIATION DOSE METRICS: Total DLP (mGy-cm): 717.19 FINDINGS: Tubes, catheters and devices: Right IJ infusion port remains in expected position. Lungs: Stable right-sided volume loss and probable apical scarring. Stable right basilar scarring. Stable indeterminate 9 mm noncalcified left lower lobe pulmonary nodule. Pleural spaces: Stable tiny right pleural effusion versus scar. Heart: Unremarkable. No cardiomegaly. No pericardial effusion. Coronary arteries: Coronary artery calcifications are present. Lymph nodes: Unremarkable. No enlarged lymph nodes. Vasculature: Unremarkable. No aortic aneurysm. Bones/joints: Unremarkable. No acute fracture. Soft tissues: Unremarkable. PROCEDURE INFORMATION: Exam: CT Abdomen And Pelvis With Contrast Exam date and time: 09/27/2025 9:37 AM Age: 70 years old Clinical indication: Condition or disease; Other: Non small cell lung with mets; Lung condition and disease; Cancer of the lung; Bilateral; Unspecified; Prior surgery; Surgery date: 6+ months; Surgery type: Left lower lobe, right upper lobe, port; Additional info: Restaging TECHNIQUE: Imaging protocol: Computed tomography of the abdomen and pelvis with contrast. Radiation optimization: All CT scans at this facility use at least one of these dose optimization techniques: automated exposure control; mA and/or kV adjustment per patient size (includes targeted exams where dose is matched to clinical indication); or iterative reconstruction. Contrast material: OMNI 350; Contrast volume: 100 ml; Contrast route: INTRAVENOUS (IV); COMPARISON: 1. CT chest abdpel w/*[id number] 06/02/2025 8:42 AM 2. PT PET skull to thigh SUBS [id number] 01/15/2025 11:53 AM RADIATION DOSE METRICS: Total DLP (mGy-cm): 717.19 FINDINGS: Liver: Marked interval reduction of previously seen large FDG avid central right hepatic mass now measuring 3.5 x 2.9 cm (previously 6.1 x 5.1 cm). Insert tube. Stable small peripheral cysts in the right hepatic lobe. No additional suspicious hepatic lesions. Gallbladder and biliary ducts: Normal. No calcified stones. No ductal dilation. Pancreas: Normal. No ductal dilation. Spleen: Normal. No splenomegaly. Adrenal glands: Stable 1.8 cm hypoattenuating left adrenal nodule not previously shown to be FDG avid. Kidneys and ureters: Status post left nephrectomy. Nonspecific low-density foci of the right kidney statistically favor benign cysts, no further follow-up needed, as large as 9 mm. Stomach and bowel: Colonic diverticulosis is present without diverticulitis. Bowel has normal caliber. Appendix: No evidence of appendicitis. Intraperitoneal space: Unremarkable. No free air. No significant fluid collection. Vasculature: Aortoiliac atherosclerotic disease is seen without evidence of aneurysm. Lymph nodes: Unremarkable. No enlarged lymph nodes. Urinary bladder: Unremarkable as visualized. Reproductive: Moderate nonspecific prostate enlargement. Bones/joints: Unremarkable. No acute fracture. Soft tissues: Unremarkable. CT/CT chest abdpel w/*[id number] IMPRESSION: 1. Stable indeterminate 9 mm noncalcified left lower lobe pulmonary nodule. 2. No evidence of new or progressive malignancy in the chest. IMPRESSION: 1. Stable 1.8 cm hypoattenuating left adrenal nodule not previously shown to be FDG avid. 2. No evidence of new or progressive malignancy in the abdomen or pelvis. 3. Moderate nonspecific prostate enlargement. COMMENTS: Consistent with the [employer]'s Incidental Findings Committee white paper (J Am José Luis Radiol 2018): Any incidental renal lesion less than 1 cm or classified as too small to characterize, or any incidental cystic renal lesion characterized as simple-appearing, is likely benign. No follow-up imaging is recommended for these lesions per consensus recommendations based on imaging criteria.
[2025-09-27] MEDS: iohexol 350 mg/mL 500 mL Btl (per mL) PO (09:46)
[2025-09-27] MEDS: iohexol 350 mg/mL 500 mL Btl (per mL) IV (09:46)
== END 2025-09-27 08:14 | disposition home or self-care (01) ==
LOC: RAD 08:14
PROVIDERS: PCP Family Medicine; Visit Provider Nurse Practitioner Family
DX: C34.11 Malignant neoplasm of upper lobe, right bronchus or lung (principal); Z96.89 Presence of other specified functional implants; I25.10 Atherosclerotic heart disease of native coronary artery without angina pectoris; K76.89 Other specified diseases of liver; E27.9 Disorder of adrenal gland, unspecified; Z90.5 Acquired absence of kidney; N28.1 Cyst of kidney, acquired; K57.90 Diverticulosis of intestine, part unspecified, without perforation or abscess without bleeding; I70.0 Atherosclerosis of aorta; N40.0 Benign prostatic hyperplasia without lower urinary tract symptoms
CPT/HCPCS: 71260; 74177

== ENCOUNTER 2025-09-28 09:30 | Oncology outpatient (recurring) (ONCR) | payer MEDICARE, SELFPAY ==
[2025-09-28 09:37] LABS: Hematocrit 42.0 % (37-53); Hemoglobin 14.10 g/dL (11.27-16.99); Mean Corpuscular HGB Conc 33.6 g/dL (30-55); Mean Corpuscular Hemoglobin 30.0 pg (27-33); Mean Corpuscular Volume 89.4 fl (82-101); Nucleated Red Blood Cells % 0 %; Platelet Count 192 10^3/cmm (157-399); Red Blood Count 4.70 10^6/uL (3.85-5.65); White Blood Count 5.99 10^3/uL (3.29-11.43)
[2025-09-28 10:16] LABS: Alanine Aminotransferase 14 U/L (0-41); Albumin Level 4.2 g/dL (3.5-5.2); Alkaline Phosphatase 91 U/L (40-130); Anion Gap 13.6 (5-19); Aspartate Amino Transferase 16 U/L (0-40); Blood Urea Nitrogen 23 mg/dL (8-23); Calcium 9.2 mg/dL (8.5-10.5); Carbon Dioxide 28 mmol/L (22-29); Chloride 102 mmol/L (98-107); Globulin 2.5 g/dL (1.3-4.6); Glucose 100 mg/dL (65-115); Osmolality Calculated 292 mOsm/kg (285-295); Potassium 4.6 mmol/L (3.5-5.1); Sodium 139 mmol/L (136-145); Thyroid Stimulating Hormone 1.06 uIU/mL (0.27-4.20); Total Protein 6.7 g/dL (6.6-8.7)
[2025-09-28] MEDS: pembrolizumab 200 MG in sodium chloride 0.9% 250 ML 516 MG IV (11:05)
[2025-09-28 11:40] VITALS: BP 124/74; PULSE 76; RESP 17; TEMP 36.6; O2SAT 98
[2025-09-28 11:46] VITALS: BP 130/88; PULSE 65; RESP 18; TEMP 37.1
== END 2025-09-28 23:59 | disposition home or self-care (01) ==
PROVIDERS: PCP Family Medicine; Visit Provider Nurse Practitioner Family
DX: Z51.12 Encounter for antineoplastic immunotherapy; C34.11 Malignant neoplasm of upper lobe, right bronchus or lung; F17.200 Nicotine dependence, unspecified, uncomplicated; D03.59 Melanoma in situ of other part of trunk; R16.0 Hepatomegaly, not elsewhere classified; Z90.5 Acquired absence of kidney; Z79.899 Other long term (current) drug therapy; Z53.9 Procedure and treatment not carried out, unspecified reason
CPT/HCPCS: 80053; 84443; 85025; 94010; 94729; 96365; 96523; 99214; A4222; J7050; J9271

== ENCOUNTER → 2025-10-06 09:57 | Outpatient (BNVA) | payer MEDICARE, SELFPAY | PROVIDERS: PCP Family Medicine; Visit Provider Internal Medicine | DX: R91.8 Other nonspecific abnormal finding of lung field (principal); C34.11 Malignant neoplasm of upper lobe, right bronchus or lung; J43.9 Emphysema, unspecified; Z87.891 Personal history of nicotine dependence | CPT/HCPCS: 99214; Q3014 ==

== ENCOUNTER 2025-10-19 08:56 | Oncology outpatient (recurring) (ONCR) | payer MEDICARE, SELFPAY ==
[2025-10-19 09:09] LABS: Hematocrit 43.3 % (37-53); Hemoglobin 14.50 g/dL (11.27-16.99); Mean Corpuscular HGB Conc 33.5 g/dL (30-55); Mean Corpuscular Hemoglobin 30.0 pg (27-33); Mean Corpuscular Volume 89.6 fl (82-101); Nucleated Red Blood Cells % 0 %; Platelet Count 191 10^3/cmm (157-399); Red Blood Count 4.83 10^6/uL (3.85-5.65); White Blood Count 6.62 10^3/uL (3.29-11.43)
[2025-10-19 09:47] LABS: Alanine Aminotransferase 10 U/L (0-41); Albumin Level 4.1 g/dL (3.5-5.2); Alkaline Phosphatase 90 U/L (40-130); Anion Gap 14.3 (5-19); Aspartate Amino Transferase 13 U/L (0-40); Blood Urea Nitrogen 20 mg/dL (8-23); Calcium 9.2 mg/dL (8.5-10.5); Carbon Dioxide 27 mmol/L (22-29); Chloride 104 mmol/L (98-107); Globulin 2.6 g/dL (1.3-4.6); Glucose 80 mg/dL (65-115); Osmolality Calculated 294 mOsm/kg (285-295); Potassium 4.3 mmol/L (3.5-5.1); Sodium 141 mmol/L (136-145); Thyroid Stimulating Hormone 1.78 uIU/mL (0.27-4.20); Total Protein 6.7 g/dL (6.6-8.7)
[2025-10-19] MEDS: pembrolizumab 200 MG in sodium chloride 0.9% 250 ML 516 MG IV (11:11)
[2025-10-19 11:50] VITALS: BP 124/78; PULSE 82; RESP 17; TEMP 36.6; O2SAT 97
== END 2025-10-19 23:59 | disposition home or self-care (01) ==
PROVIDERS: PCP Family Medicine; Visit Provider Internal Medicine Medical Oncology
DX: Z51.12 Encounter for antineoplastic immunotherapy (principal); C34.11 Malignant neoplasm of upper lobe, right bronchus or lung; C64.9 Malignant neoplasm of unspecified kidney, except renal pelvis; F17.200 Nicotine dependence, unspecified, uncomplicated; D03.59 Melanoma in situ of other part of trunk; R03.0 Elevated blood-pressure reading, without diagnosis of hypertension; Z79.899 Other long term (current) drug therapy
CPT/HCPCS: 80053; 84443; 85025; 96413; 99214; A4222; J7050; J9271